=== PATIENT | female | born 1970 | race Caucasian/White ===

== ENCOUNTER → 2016-09-15 | Outpatient (CLI) | payer OTHER ==
[~2016-09-15] MED LIST: AUG875 PO; BACTROOINT TOPICALLY; BUSP15TA; COMBIVENT INHALER; COMBIVENT PO; FLOVENT; FLOVENT110 PO; FLOVENT220 PO; GEODON; HABITROL2 TOPICAL; KEFLEX500 PO; MYCELEXTRO PO; NEURONTIN1 PO; NEXIUM40 PO; NYSTAT100 PO; PRILOSEC40 PO; TYLENOL#3 PO; ZOLO100T; [UNRECOGNIZED DRUG - CODE] PO
--- NOTE | 2016-09-15 10:06 | REP ---
MRI of the right shoulder without contrast: History: Right shoulder pain. Lump at the back of the shoulder. The patient gives a history of remote prior fracture. The patient declined IV contrast. Comparison radiographs are from January 18, 2013. Comparison MRI study is from February 28, 2011. Technique: Axial, oblique coronal, and oblique sagittal imaging planes are utilized. T1 and T2-weighted scans were obtained in the usual fashion with and without fat saturation. MRI findings: There is some hypertrophy, early spur formation, and mild marrow edema on either side of the acromioclavicular joint. There is no evidence of fracture deformity. Glenohumeral and acromioclavicular joints are normally aligned. There is a moderate subacromial subdeltoid bursal effusion. There is increased signal intensity on oblique coronal T1-weighted scans in the distal supraspinatus tendon and a focal T2 hyperintensity is seen at the distal insertion of the supraspinatus tendon consistent with a cuff tear probably partial-thickness. The infraspinatus, subscapularis, and biceps tendons appear intact. No anterior or superior labral disruption is seen. The posterior labrum shows some heterogeneous increased signal intensity on T2-weighted scans compatible with fraying. No abnormality is noted in the visualized scapula. No soft tissue mass or axillary adenopathy is seen. Impression: 1. AC joint osteoarthritis. 2. Subacromial subdeltoid bursal effusion. 3. Fraying in the posterior labrum. 4. Partial thickness distal supraspinatus tendon cuff tear. Signed by Gonzalo Hurley MD 09/15/2016 01:07 P
== END ==
LOC: M RAD 07:41
PROVIDERS: ATTEND Nurse Practitioner Family
DX: M75.81 Other shoulder lesions, right shoulder (principal)

== ENCOUNTER → 2016-09-23 | Outpatient (CLI) | payer OTHER ==
--- NOTE | 2016-09-23 17:13 | PFTRPT ---
Tech: Marilu REBOLLEDO RRT Age: 46 Sex: Female Race: Height: 62.00 Inches Weight: 112.00 Lbs BSA: 1.49 Diagnosis: R06.09 TECH NOTE: Test meets the ATS standards for acceptability and repeatability. The patient was given four puffs of albuterol for postbronchodilator. PULMONARY FUNCTION REPORT ORDERING PROVIDER: MARIBEL Jorgensen DATE OF SERVICE: 09/23/16 SPIROMETRY: Pre and post bronchodilator study of excellent technical quality. The forced vital capacity is normal. The FEV1 is out of proportion. The obstructive index is, therefore, reduced. FLOW VOLUME LOOP: The expiratory limb of the flow volume loop is consistent with airflow obstruction. Only borderline bronchodilator response is identified. LUNG VOLUMES: The total lung capacity is mildly elevated. The residual volume is consistent with air trapping. DIFFUSION CAPACITY: The diffusion capacity is reduced and does not correct for alveolar volume. HEMOGLOBIN: No hemoglobin is available for correction. AIRWAY MECHANICS: Airways resistance and conductance are normal. IMPRESSION: Mild to moderate obstructive ventilatory impairment with air trapping; suspected emphysema. No significant bronchodilator response. Please correlate clinically. MTDD
[2016-09-23 18:17] LABS: BASO % 0.7 % (0.0-1.0); EOS # 0.1 K/mm3 (0.0-0.50); EOS % 1.9 % (0.0-3.0); LARGE UNSTAINED CELL # 0.1 K/mm3 (0.0-0.4); LARGE UNSTAINED CELL % 1.9 % (0.0-4.0); LYMPH # 1.9 K/mm3 (1.5-4.5); LYMPH % 24.8 % (24.0-44.0); MEAN CORPUSCULAR HEMOGLOBIN 32.9 pg (27.0-33.0); MEAN CORPUSCULAR HGB CONC 33.5 g/dl (32.0-36.5); MEAN CORPUSCULAR VOLUME 98.2 fl (80.0-96.0); MONO # 0.5 K/mm3 (0.0-0.8); NEUTROPHILS # 4.8 K/mm3 (1.8-7.7); NEUTROPHILS % 64.7 % (36.0-66.0); PLATELET COUNT, AUTOMATED 341 k/mm3 (150-450); RED CELL DISTRIBUTION WIDTH 13.4 % (11.5-14.5); WHITE BLOOD COUNT 7.5 K/mm3 (4.0-10.0)
[2016-09-23 18:48] LABS: ALBUMIN 4.2 GM/DL (3.2-5.2); ALBUMIN/GLOBULIN RATIO 1.24 (1.00-1.93); ALKALINE PHOSPHATASE 59 U/L (45-117); ALT/SGPT 20 U/L (12-78); ANION GAP 8 MEQ/L (8-16); AST/SGOT 20 U/L (15-37); BILIRUBIN,TOTAL 0.4 MG/DL (0.2-1.0); BLOOD UREA NITROGEN 15 MG/DL (7-18); CALCIUM LEVEL 9.2 MG/DL (8.5-10.1); CARBON DIOXIDE LEVEL 25 MEQ/L (21-32); CHLORIDE LEVEL 104 MEQ/L (98-107); CHOLESTEROL LEVEL 212 MG/DL (<200); CREATININE FOR GFR 1.13 MG/DL (0.55-1.02); FREE T4 0.91 NG/DL (0.76-1.46); GLOMERULAR FILTRATION RATE 55.4 (>58); GLUCOSE, FASTING 91 MG/DL (70-105); POTASSIUM SERUM 4.1 MEQ/L (3.5-5.1); SODIUM LEVEL 137 MEQ/L (136-145); TOTAL PROTEIN 7.6 GM/DL (6.4-8.2); TRIGLYCERIDES LEVEL 98 MG/DL (<150)
--- NOTE | 2016-09-23 22:03 | REP ---
Clinical: Chest pain. History of emphysema. Technique: PA and lateral. Comparison: 03/13/2014. Findings: Mediastinum and cardiac silhouette are normal. Lung siu suggest mild emphysematous changes primarily involving the upper lobes (record left). No focal consolidation, effusion, or pneumothorax. Impression: Mild emphysematous changes. No acute cardiopulmonary process. Signed by Harrison Eldridge MD 09/23/2016 09:54 P
--- NOTE | 2016-09-23 22:10 | REP ---
Clinical: Hip pain. Technique: Neutral and frog lateral views of the right hip. Findings: Mild age-related changes include increased sclerosis to the acetabular roof with associated superior joint space narrowing. No significant osteophytosis, or periarticular calcifications. Surrounding soft tissues are unremarkable. No acute fracture dislocation. Impression: Mild age-related degenerative change. Signed by Harrison Eldridge MD 09/23/2016 10:01 P
--- NOTE | 2016-09-23 22:41 | ECGEPIP ---
Stationary ECG Study [facility] Test Date: 2016-09-23 Pat Name: JACKY MERCHANT Department: Room: - Gender: F Offc Spec: SANDRO : 1970 Requested By: Hortencia Haque [employer] Order Number: [id number] Reading MD: Edward Sun Measurements Intervals [place] Rate: 61 P: 34 SD: 179 QRS: 78 QRSD: 84 T: 58 QT: 423 QTc: 426 Interpretive Statements SINUS RHYTHM WITH 1 PAC. Electronically Signed On 09-23-2016 22:41:17 EDT by Edward Sun
[2016-09-26 00:06] LABS: Lyme Disease IgG/IgM Antibodie <0.91 ISR (0.00-0.90); Lyme Disease IgM Ab Quantitati <0.80 index (0.00-0.79)
--- NOTE | 2016-09-26 02:28 | REP ---
Clinical: Mandibular pain. Technique: Carlos and opened/closed mouth views of the right and left temporomandibular joint. Findings: The mandible appears intact and grossly normal. Open and closed mouth views of the left and right temporomandibular joints demonstrates normal positioning of the condyle in relation to the articular eminence and fossa respectively. Impression: Normal appearance to the mandible with normal positioning and appearance to the temporomandibular joints bilaterally on open and closed mouth views. Signed by Harrison Eldridge MD 09/26/2016 02:19 A
== END ==
LOC: M LAB 16:03
PROVIDERS: ATTEND Nurse Practitioner Family
DX: Z13.220 Encounter for screening for lipoid disorders (principal); I25.10 Atherosclerotic heart disease of native coronary artery without angina pectoris; R68.84 Jaw pain; J43.8 Other emphysema; M25.551 Pain in right hip; A63.8 Other specified predominantly sexually transmitted diseases; K13.79 Other lesions of oral mucosa; R68.89 Other general symptoms and signs

== ENCOUNTER 2017-03-13 12:41 | Emergency (ER) | payer OTHER ==
[~2017-03-13] VITALS: Ht 144.8 cm; Wt 48.2 kg
[2017-03-13] MEDS ORDERED: VITA1CAP40 PO (12:58)
[2017-03-13] MEDS ORDERED: ANOR1AER (12:58)
--- NOTE | 2017-03-13 14:50 | REP ---
Clinical: Trauma. Technique: AP, lateral, bilateral oblique views of the left hand. Findings: Boxer's fracture involving the fifth metacarpal bone with mild volar angulation and overlying soft tissue swelling. Remainder examination appears normal. Impression: Boxer's fracture of the fifth metacarpal bone with overlying soft tissue swelling. Signed by Harrison Eldridge MD 03/13/2017 02:41 P
[2017-03-13] MEDS ORDERED: PERCOCET 5MG/325MG TAB PO ONE (15:15)
[2017-03-13] MEDS ORDERED: PERC5TAB12 PO (16:03)
[2017-03-13 16:14] VITALS: BP 128/81
== END 2017-03-13 16:16 | disposition home or self-care (01) ==
LOC: M ED 12:41
DX: S62.306A Unspecified fracture of fifth metacarpal bone, right hand, initial encounter for closed fracture (principal); W18.2XXA Fall in (into) shower or empty bathtub, initial encounter; Y92.099 Unspecified place in other non-institutional residence as the place of occurrence of the external cause; Y93.9 Activity, unspecified; Y99.9 Unspecified external cause status; J44.9 Chronic obstructive pulmonary disease, unspecified; M54.9 Dorsalgia, unspecified; F41.9 Anxiety disorder, unspecified; F32.9 Major depressive disorder, single episode, unspecified; F17.200 Nicotine dependence, unspecified, uncomplicated; Z79.899 Other long term (current) drug therapy

== ENCOUNTER → 2017-05-26 | Outpatient (CLI) | payer OTHER | LOC: M CARPUL 07:42 | DX: J44.9 Chronic obstructive pulmonary disease, unspecified (principal) | CPT/HCPCS: 88738 ==

== ENCOUNTER → 2017-07-20 | Outpatient (CLI) | payer OTHER ==
[2017-07-20 13:23] LABS: BASO # 0.1 10^3/uL (0.0-0.2); BASO % 1.1 % (0.0-1.0); EOS # 0.2 10^3/uL (0.0-0.50); HEMATOCRIT 42.4 % (36.0-47.0); HEMOGLOBIN 14.6 g/dl (12.0-16.0); IMMATURE GRANULOCYTE % 0.3 % (0-3.0); LYMPH # 2.2 10^3/uL (1.5-4.5); LYMPH % 32.5 % (24.0-44.0); MEAN CORPUSCULAR HEMOGLOBIN 32.5 pg (27.0-33.0); MEAN CORPUSCULAR HGB CONC 34.4 g/dl (32.0-36.5); MEAN CORPUSCULAR VOLUME 94.4 fl (80.0-96.0); MONO # 0.5 10^3/uL (0.0-0.8); MONO % 7.2 % (0.0-5.0); NEUTROPHILS # 3.7 10^3/uL (1.8-7.7); NEUTROPHILS % 55.9 % (36.0-66.0); PLATELET COUNT, AUTOMATED 342 10^3/uL (150-450); RED BLOOD COUNT 4.49 10^6/uL (4.00-5.40); RED CELL DISTRIBUTION WIDTH 12.7 % (11.5-14.5); WHITE BLOOD COUNT 6.7 10^3/uL (4.0-10.0)
[2017-07-20 13:33] LABS: INR 0.91; PROTHROMBIN TIME 12.3 SECONDS (12.4-14.5)
[2017-07-20 13:56] LABS: ALBUMIN/GLOBULIN RATIO 1.18 (1.00-1.93); ALKALINE PHOSPHATASE 55 U/L (45-117); ALT/SGPT 16 U/L (12-78); ANION GAP 5 MEQ/L (8-16); AST/SGOT 13 U/L (7-37); BILIRUBIN,TOTAL 0.4 MG/DL (0.2-1.0); BLOOD UREA NITROGEN 12 MG/DL (7-18); CALCIUM LEVEL 8.8 MG/DL (8.5-10.1); CARBON DIOXIDE LEVEL 29 MEQ/L (21-32); CHLORIDE LEVEL 105 MEQ/L (98-107); GLOMERULAR FILTRATION RATE > 60.0 (>58); GLUCOSE, FASTING 83 MG/DL (70-100); POTASSIUM SERUM 4.9 MEQ/L (3.5-5.1); SODIUM LEVEL 139 MEQ/L (136-145); TOTAL PROTEIN 7.4 GM/DL (6.4-8.2)
== END ==
LOC: M LAB 12:17
DX: Z01.818 Encounter for other preprocedural examination (principal); J44.9 Chronic obstructive pulmonary disease, unspecified; I25.2 Old myocardial infarction; I25.10 Atherosclerotic heart disease of native coronary artery without angina pectoris
CPT/HCPCS: 71046

== ENCOUNTER 2017-07-27 08:40 | Day surgery (SDC) | payer OTHER ==
[2017-07-27] MEDS ORDERED: MIDAZOLAM INJ 2 MG/2 ML VIAL (J2250) As Ordered (09:01)
[2017-07-27] MEDS ORDERED: LIDOCAINE 2% INJ 100 MG/5 ML SDV (FOR ANES.) As Ordered (09:01)
[2017-07-27] MEDS ORDERED: PROPOFOL 200 MG/20 ML VIAL As Ordered (09:01)
[2017-07-27] MEDS ORDERED: fentaNYL 250 MCG/5 ML INJECTION (J3010) As Ordered (09:01)
[2017-07-27] MEDS ORDERED: ROCURONIUM BROMIDE 50 MG/5 ML VIAL As Ordered (09:01)
[2017-07-27] MEDS: LR 1,000 ML IV (09:10)
[2017-07-27 09:14] LABS: CONTROL LINE UCG INT CTR LINE PRESENT; URINE PREG TEST NEGATIVE (NEGATIVE)
[2017-07-27] MEDS: OXYMETAZOLINE NASAL SPRAY (AFRIN) As Ordered (09:55)
[2017-07-27] MEDS: METHYLENE BLUE 0.5% (5MG/ML) 10 ML AMP (PROVAYBLUE)(Q9968 PER 1MG) As Ordered (09:55)
[2017-07-27] MEDS ORDERED: GLYCOPYRROLATE INJ 0.2 MG/ML 2 ML VIAL As Ordered (10:04)
[2017-07-27] MEDS ORDERED: KETOROLAC 60 MG/2 ML VIAL (J1885) As Ordered (10:04)
[2017-07-27] MEDS ORDERED: dexameTHASONE 4 MG/ML 1ML VIAL (J1100) As Ordered ×2 (10:04)
[2017-07-27] MEDS ORDERED: ONDANSETRON 4MG/2ML VIAL (J2405) As Ordered ×2 (10:04→10:57)
[2017-07-27] MEDS ORDERED: NEOSTIGMINE 10 MG/10 ML VIAL (J2710) As Ordered (10:04)
[2017-07-27] MEDS ORDERED: fentaNYL 100 MCG/2 ML INJECTION (J3010) As Ordered (10:50)
[2017-07-27] MEDS: LIDOCAINE W/EPINEPHRINE 1% 20ML VIAL As Ordered (10:50)
[2017-07-27] MEDS: fentaNYL 100 MCG/2 ML INJECTION (J3010) IV (10:58)
[2017-07-27] MEDS: ONDANSETRON 4MG/2ML VIAL (J2405) IV (11:05)
[2017-07-27] MEDS: PERCOCET 5MG/325MG TAB PO (11:41)
[2017-07-27] MEDS ORDERED: MORPHINE 10 MG/ML 1ML VIAL (J2270) IV (11:45)
[2017-07-27] MEDS ORDERED: IBUPROFEN 800 MG TAB PO (11:45)
[2017-07-27] MEDS ORDERED: PERCOCET 5MG/325MG TAB PO (11:45)
[2017-07-27] MEDS ORDERED: LR 1,000 ML IV (11:45)
== END 2017-07-27 13:22 | disposition home or self-care (01) ==
LOC: M SDC 08:40
DX: J34.2 Deviated nasal septum (principal); J44.9 Chronic obstructive pulmonary disease, unspecified; F41.9 Anxiety disorder, unspecified; Z79.899 Other long term (current) drug therapy; F17.210 Nicotine dependence, cigarettes, uncomplicated
CPT/HCPCS: 30520

== ENCOUNTER → 2017-08-20 | Outpatient (CLI) | payer OTHER | LOC: M RAD 14:20 | DX: M16.11 Unilateral primary osteoarthritis, right hip (principal) | CPT/HCPCS: 73502 ==

== ENCOUNTER → 2018-01-14 | Outpatient (CLI) | payer OTHER | LOC: M CARPUL 09:35 | DX: J44.9 Chronic obstructive pulmonary disease, unspecified (principal) | CPT/HCPCS: 94060 ==

== ENCOUNTER 2018-02-23 11:57 | Emergency (ER) | payer OTHER ==
[2018-02-23 13:47] LABS: INFLUENZA A AMPLIFICATION NEGATIVE (NEGATIVE); INFLUENZA B AMPLIFICATION NEGATIVE (NEGATIVE)
[2018-02-23 14:24] LABS: HEMATOCRIT 41.6 % (36.0-47.0); HEMOGLOBIN 14.2 g/dl (12.0-15.5); MEAN CORPUSCULAR HEMOGLOBIN 33.2 pg (27.0-33.0); MEAN CORPUSCULAR HGB CONC 34.1 g/dl (32.0-36.5); MEAN CORPUSCULAR VOLUME 97.2 fl (80.0-96.0); PLATELET COUNT, AUTOMATED 551 10^3/uL (150-450); RED BLOOD COUNT 4.28 10^6/uL (4.00-5.40); RED CELL DISTRIBUTION WIDTH 12.8 % (11.5-14.5)
[2018-02-23] MEDS: ACETAMINOPHEN 325 MG TAB PO (14:26)
[2018-02-23] MEDS: BENZONATATE 100 MG CAP PO (14:26)
[2018-02-23] MEDS: IPRATROPIUM 0.5MG/ALBUTEROL 2.5MG INH SOL UD 3ML (DUONEB)(J7620) NEB (14:30)
[2018-02-23 14:46] LABS: ANION GAP 8 MEQ/L (8-16); BLOOD UREA NITROGEN 7 MG/DL (7-18); CALCIUM LEVEL 9.1 MG/DL (8.5-10.1); CARBON DIOXIDE LEVEL 27 MEQ/L (21-32); CHLORIDE LEVEL 102 MEQ/L (98-107); CPK CREATINE PHOSPHOKINASE 178 U/L (26-192); CREATININE FOR GFR 0.78 MG/DL (0.55-1.30); GLOMERULAR FILTRATION RATE > 60.0 (>58); GLUCOSE, FASTING 94 MG/DL (70-100); MB/CK RELATIVE INDEX 0.96 (< OR =4); POTASSIUM SERUM 4.4 MEQ/L (3.5-5.1); SODIUM LEVEL 137 MEQ/L (136-145); TROPONIN I < 0.02 NG/ML (< 0.10)
[2018-02-23 14:48] LABS: ADD MANUAL DIFFER YES; DIFF SLIDE NUMBER 292; POSITIVE MORPH POS FLAG
[2018-02-23 14:55] LABS: ATYPICAL LYMPH 28 % (0-5); BASOPHILS 2 % (0-4); EOSINOPHILS 4 % (0-5); LYMPHOCYTES 7 % (16-52); METAMYELOCYTES 1 % (0-0); MONOCYTES 10 % (0-8); NEUTROPHILS 48 % (35-75)
[2018-02-23 14:56] LABS: PLATELET ESTIMATE INCREASED (NORMAL)
[2018-02-23] MEDS ORDERED: ISOVUE-370 76% 100ML VIAL (Q9967) As Ordered (15:01)
== END 2018-02-23 16:42 | disposition home or self-care (01) ==
LOC: M ED 11:57
DX: J18.1 Lobar pneumonia, unspecified organism (principal); R06.02 Shortness of breath; M79.602 Pain in left arm; C06.9 Malignant neoplasm of mouth, unspecified; I25.2 Old myocardial infarction; J44.9 Chronic obstructive pulmonary disease, unspecified; F17.210 Nicotine dependence, cigarettes, uncomplicated
CPT/HCPCS: Q9967

== ENCOUNTER → 2018-04-01 | Outpatient (CLI) | payer OTHER | LOC: M RAD 10:16 | DX: R91.8 Other nonspecific abnormal finding of lung field (principal) | CPT/HCPCS: 71046 ==

== ENCOUNTER → 2018-05-24 | Outpatient (CLI) | payer OTHER ==
[~2018-05-24] MED LIST changes: +ANOR1AER; +BACL10TA2 PO; +LEVO750T13 PO; +PERC5TAB12 PO; +PRED20TA PO; +TESS100C PO; +VENTAER IN; +VITA50005 PO
--- NOTE | 2018-05-24 13:19 | REP ---
Clinical: Follow up abnormal findings. Technique: Axial noncontrast images from the thoracic inlet to the upper abdomen with coronal and sagittal re-formations. Comparison: 02/23/2018. Findings: Previously identified area of opacity along the medial left upper lobe has completely resolved and likely represented area of atelectasis/infiltrate. No further acute consolidation, significant nodule or mass lesion appreciated. Moderate bronchiectasis and emphysematous changes with upper lobe predominance again identified and stable. No pleural effusion. No pneumothorax. No obvious adenopathy. Mediastinum demonstrates minimal atherosclerotic changes to the thoracic aorta and coronary arteries without aortic aneurysm or cardiomegaly. No pericardial effusion. Musculoskeletal structures are intact. Impression: 1. Previously identified opacity in the medial left upper lobe has completely resolved and no new significant mediastinal or pleuroparenchymal process is appreciated. 2. Moderate bronchiectasis and emphysematous disease remains stable. Electronically Signed by Harrison Eldridge MD 05/24/2018 01:12 P
== END ==
LOC: M RAD 12:39
PROVIDERS: ATTEND Internal Medicine Pulmonary Disease
DX: J47.9 Bronchiectasis, uncomplicated (principal)

== ENCOUNTER → 2018-06-17 | Outpatient (REF) | payer OTHER ==
[2018-06-17 19:42] LABS: ALBUMIN 3.8 GM/DL (3.2-5.2); ALT/SGPT 16 U/L (12-78); BILIRUBIN,TOTAL 0.3 MG/DL (0.2-1.0); BLOOD UREA NITROGEN 11 MG/DL (7-18); CALCIUM LEVEL 8.5 MG/DL (8.5-10.1); CARBON DIOXIDE LEVEL 27 MEQ/L (21-32); CHLORIDE LEVEL 108 MEQ/L (98-107); CHOLESTEROL LEVEL 208 MG/DL (<200); CHOLESTEROL RISK RATIO 3.851 (<5); CREATININE FOR GFR 0.84 MG/DL (0.55-1.30); GLOMERULAR FILTRATION RATE > 60.0 (>58); GLUCOSE, FASTING 95 MG/DL (70-100); HDL CHOLESTEROL 54 MG/DL (>40); LDL CHOLESTEROL 122 MG/DL (<100); NON-HDL-C 154 MG/DL; POTASSIUM SERUM 4.3 MEQ/L (3.5-5.1); SODIUM LEVEL 140 MEQ/L (136-145); THYROID STIMULATING HORMONE 0.718 uIU/ML (0.358-3.740); TRIGLYCERIDES LEVEL 158 MG/DL (<150)
[2018-06-17 19:43] LABS: FOLATE 9.3 NG/ML; TOTAL 25(OH) VITAMIN D 13.7 NG/ML (30.0-100.0); VITAMIN B12 LEVEL 876 PG/ML
[2018-06-17 19:47] LABS: HEMOGLOBIN A1c 5.4 %
[2018-06-17 19:48] LABS: BASO # 0.1 10^3/uL (0.0-0.2); BASO % 0.7 % (0.0-1.0); EOS # 0.3 10^3/uL (0.0-0.50); EOS % 2.3 % (0.0-3.0); HEMATOCRIT 41.1 % (36.0-47.0); LYMPH # 2.7 10^3/uL (1.5-4.5); LYMPH % 24.2 % (24.0-44.0); MEAN CORPUSCULAR HEMOGLOBIN 32.6 pg (27.0-33.0); MEAN CORPUSCULAR HGB CONC 34.1 g/dl (32.0-36.5); MEAN CORPUSCULAR VOLUME 95.6 fl (80.0-96.0); MONO # 0.6 10^3/uL (0.0-0.8); MONO % 5.6 % (0.0-5.0); NEUTROPHILS # 7.5 10^3/uL (1.8-7.7); NEUTROPHILS % 66.8 % (36.0-66.0); PLATELET COUNT, AUTOMATED 317 10^3/uL (150-450); WHITE BLOOD COUNT 11.2 10^3/uL (4.0-10.0)
== END ==
LOC: M LAB REF 18:43
PROVIDERS: ATTEND Nurse Practitioner Family
DX: Z13.9 Encounter for screening, unspecified (principal)

== ENCOUNTER → 2019-01-18 | Outpatient (REF) | payer OTHER ==
[2019-01-21 00:08] LABS: HPV HYBRID CAPTURE II Positive (Negative)
== END ==
LOC: M LAB REF 20:19
PROVIDERS: ATTEND Nurse Practitioner Family
DX: Z12.4 Encounter for screening for malignant neoplasm of cervix (principal); R87.810 Cervical high risk human papillomavirus (HPV) DNA test positive

== ENCOUNTER → 2019-02-01 | Outpatient (REF) | payer OTHER | LOC: M LAB REF 16:27 | PROVIDERS: ATTEND Nurse Practitioner Family | DX: R50.9 Fever, unspecified (principal); J02.9 Acute pharyngitis, unspecified ==

== ENCOUNTER → 2019-07-04 | Outpatient (REF) | payer OTHER, MEDICAID | LOC: M SMT 13:08 | PROVIDERS: ATTEND Nurse Practitioner Women's Health | DX: R87.615 Unsatisfactory cytologic smear of cervix (principal) ==

== ENCOUNTER → 2019-07-25 | Outpatient (REF) | payer OTHER, MEDICAID | LOC: M SFHCWAGY 17:13 | PROVIDERS: ATTEND Nurse Practitioner Women's Health | DX: R87.612 Low grade squamous intraepithelial lesion on cytologic smear of cervix (LGSIL) (principal) ==

== ENCOUNTER → 2019-08-09 | Outpatient (REF) | payer OTHER, MEDICAID ==
[~2019-08-09] MED LIST changes: +STIO1AER INH; -VENTAER IN; +VENTAER INH
[2019-08-09 19:50] LABS: BASO # 0.1 10^3/uL (0.0-0.2); BASO % 0.9 % (0.0-1.0); EOS # 0.4 10^3/uL (0.0-0.5); EOS % 4.7 % (0.0-3.0); HEMATOCRIT 43.7 % (36.0-47.0); LYMPH # 3.2 10^3/uL (1.5-5.0); LYMPH % 39.7 % (24.0-44.0); MEAN CORPUSCULAR HEMOGLOBIN 32.1 pg (27.0-33.0); MEAN CORPUSCULAR HGB CONC 34.3 g/dl (32.0-36.5); MEAN CORPUSCULAR VOLUME 93.4 fl (80.0-96.0); MONO # 0.6 10^3/uL (0.0-0.8); MONO % 7.3 % (0.0-5.0); NEUTROPHILS # 3.8 10^3/uL (1.5-8.5); NEUTROPHILS % 47.2 % (36.0-66.0); PLATELET COUNT, AUTOMATED 310 10^3/uL (150-450); RED BLOOD COUNT 4.68 10^6/uL (4.00-5.40)
[2019-08-09 20:13] LABS: ALT/SGPT 25 U/L (12-78); BILIRUBIN,TOTAL 0.3 MG/DL (0.2-1.0); BLOOD UREA NITROGEN 15 MG/DL (7-18); CALCIUM LEVEL 9.3 MG/DL (8.5-10.1); CARBON DIOXIDE LEVEL 28 MEQ/L (21-32); CHLORIDE LEVEL 105 MEQ/L (98-107); CHOLESTEROL LEVEL 228 MG/DL (<200); CREATININE FOR GFR 0.94 MG/DL (0.55-1.30); GLOMERULAR FILTRATION RATE > 60.0 (>58); GLUCOSE, FASTING 87 MG/DL (70-100); HDL CHOLESTEROL 60 MG/DL (>40); LDL CHOLESTEROL 138 MG/DL (<100); NON-HDL-C 168 MG/DL; POTASSIUM SERUM 4.1 MEQ/L (3.5-5.1); SODIUM LEVEL 138 MEQ/L (136-145); TOTAL PROTEIN 7.7 GM/DL (6.4-8.2); TRIGLYCERIDES LEVEL 148 MG/DL (<150)
== END ==
LOC: M LAB REF 19:28
PROVIDERS: ATTEND Nurse Practitioner Family
DX: Z13.9 Encounter for screening, unspecified (principal); R87.612 Low grade squamous intraepithelial lesion on cytologic smear of cervix (LGSIL)

== ENCOUNTER 2019-08-16 08:21 | Day surgery (SDC) | payer MEDICAID, OTHER ==
[~2019-08-16] VITALS: Ht 157.5 cm; Wt 46.7 kg
[2019-08-16 08:45] LABS: HEMATOCRIT 43.4 % (36.0-47.0); HEMOGLOBIN 15.1 g/dl (12.0-15.5); MEAN CORPUSCULAR HEMOGLOBIN 32.1 pg (27.0-33.0); MEAN CORPUSCULAR HGB CONC 34.8 g/dl (32.0-36.5); MEAN CORPUSCULAR VOLUME 92.3 fl (80.0-96.0); PLATELET COUNT, AUTOMATED 340 10^3/uL (150-450); WHITE BLOOD COUNT 7.9 10^3/uL (4.0-10.0)
[2019-08-16] MEDS ORDERED: SILVER NITRATE APPLICATOR As Ordered ONE (10:09)
[2019-08-16] MEDS ORDERED: LIDOCAINE W/EPINEPHRINE 1% 20ML VIAL As Ordered ONE (10:09)
[2019-08-16] MEDS ORDERED: IODINE STRONG SOLN 15 ML BTL As Ordered ONE (10:09)
[2019-08-16] MEDS ORDERED: ONDANSETRON 4MG/2ML VIAL (J2405 PER 1MG) As Ordered ONE (10:43)
[2019-08-16] MEDS ORDERED: dexameTHASONE 4 MG/ML 1ML VIAL (J1100 PER 1MG) As Ordered ONE (10:43)
[2019-08-16] MEDS ORDERED: LIDOCAINE 2% 100MG/5ML SDV (FOR ANES.) As Ordered ONE (10:43)
[2019-08-16] MEDS ORDERED: propofoL 200 MG/20 ML VIAL As Ordered ONE (10:43)
[2019-08-16] MEDS ORDERED: MIDAZOLAM INJ 2MG/2ML VIAL (J2250 PER 1MG) As Ordered ONE (10:43)
[2019-08-16] MEDS ORDERED: fentaNYL 100 MCG/2 ML INJECTION (J3010) As Ordered ONE (10:43)
[2019-08-16] MEDS ORDERED: ePHEDrine SULFATE 25 MG/5 ML(5MG/ML) SYRINGE As Ordered ONE (11:00)
[2019-08-16] MEDS ORDERED: oxyCODONE 5MG TAB As Ordered ONE (11:46)
[2019-08-16] MEDS: oxyCODONE 5MG TAB PO PRN ×2 (11:48→11:55)
[2019-08-16] MEDS ORDERED: fentaNYL 100 MCG/2 ML INJECTION (J3010) IV PRN (12:00)
[2019-08-16] MEDS ORDERED: LR 1,000 ML IV SCH (12:00)
[2019-08-16] MEDS ORDERED: ONDANSETRON 4MG/2ML VIAL (J2405 PER 1MG) IV PRN (12:00)
[2019-08-16 13:00] VITALS: BP 106/49
== END 2019-08-16 13:25 | disposition home or self-care (01) ==
LOC: M SDC 08:21
PROVIDERS: ATTEND Obstetrics & Gynecology
DX: N87.1 Moderate cervical dysplasia (principal); I25.10 Atherosclerotic heart disease of native coronary artery without angina pectoris; I25.2 Old myocardial infarction; F17.218 Nicotine dependence, cigarettes, with other nicotine-induced disorders; F12.10 Cannabis abuse, uncomplicated; Z79.51 Long term (current) use of inhaled steroids; F41.9 Anxiety disorder, unspecified; F32.9 Major depressive disorder, single episode, unspecified
CPT/HCPCS: 36415; 57522; 81025; 85027; 86850; 86900; 86901; 88307; J1100; J2250; J2405; J3010

== ENCOUNTER → 2019-10-20 | Outpatient (CLI) | payer OTHER ==
[~2019-10-20] MED LIST changes: +ATOR1TAB21 PO; +CYCL-707 PO; +GABA-843 PO; +IBUP-1022 PO
--- NOTE | 2019-10-20 12:18 | REP ---
Seven views lumbar spine: 10/20/2019. Indication: Low back pain. Comparison: None. Findings: There is no acute fracture, subluxation or dislocation. There is no evidence of instability during dynamic testing. No lytic or blastic lesions are present. Disc space height within the lumbar spine is relatively maintained. Mild anterior spurring is noted most pronounced at L1/L2. The spinal canal and neural foramina appear patent. Impression: No acute osseous injury or evidence of instability. Electronically Signed by Rigo Henson DO 10/20/2019 12:09 P
== END ==
LOC: M RAD 11:05
PROVIDERS: ATTEND Nurse Practitioner Family
DX: M54.5 Low back pain (principal)

== ENCOUNTER 2020-01-13 10:38 | Emergency (ER) | payer OTHER ==
[~2020-01-13] VITALS: Ht 157.5 cm; Wt 46.6 kg
[~2020-01-13 10:38] MED LIST changes: -ATOR1TAB21 PO; -CYCL-707 PO; -GABA-843 PO; -IBUP-1022 PO
[2020-01-13] MEDS ORDERED: ATOR1TAB21 PO (10:52)
[2020-01-13] MEDS ORDERED: GABA-843 PO (10:52)
[2020-01-13] MEDS ORDERED: CYCL-707 PO (11:31)
[2020-01-13] MEDS ORDERED: IBUP-1022 PO (11:31)
[2020-01-13 11:36] VITALS: BP 136/87
== END 2020-01-13 11:49 | disposition home or self-care (01) ==
LOC: M ED 10:38
DX: M54.5 Low back pain (principal); I10 Essential (primary) hypertension; F17.200 Nicotine dependence, unspecified, uncomplicated; Z79.51 Long term (current) use of inhaled steroids; Z79.899 Other long term (current) drug therapy

== ENCOUNTER → 2020-02-13 | Outpatient (REF) | payer OTHER, MEDICAID ==
[~2020-02-13] MED LIST changes: +ATOR1TAB21 PO; +CYCL-707 PO; +GABA-843 PO; +IBUP-1022 PO
[2020-02-13 13:49] LABS: BASO # 0.1 10^3/uL (0.0-0.2); BASO % 1.3 % (0.0-1.0); EOS # 0.3 10^3/uL (0.0-0.5); HEMATOCRIT 43.1 % (36.0-47.0); HEMOGLOBIN 15.1 g/dl (12.0-15.5); LYMPH # 2.6 10^3/uL (1.5-5.0); LYMPH % 31.3 % (24.0-44.0); MEAN CORPUSCULAR HEMOGLOBIN 32.5 pg (27.0-33.0); MEAN CORPUSCULAR VOLUME 92.7 fl (80.0-96.0); MONO # 0.7 10^3/uL (0.0-0.8); MONO % 8.3 % (0.0-5.0); NEUTROPHILS # 4.5 10^3/uL (1.5-8.5); NEUTROPHILS % 54.6 % (36.0-66.0); PLATELET COUNT, AUTOMATED 333 10^3/uL (150-450); RED BLOOD COUNT 4.65 10^6/uL (4.00-5.40); WHITE BLOOD COUNT 8.2 10^3/uL (4.0-10.0)
[2020-02-13 14:19] LABS: ALBUMIN 3.8 GM/DL (3.2-5.2); ALT/SGPT 15 U/L (12-78); BILIRUBIN,TOTAL 0.4 MG/DL (0.2-1.0); BLOOD UREA NITROGEN 11 MG/DL (7-18); CALCIUM LEVEL 9.3 MG/DL (8.5-10.1); CARBON DIOXIDE LEVEL 28 MEQ/L (21-32); CHLORIDE LEVEL 105 MEQ/L (98-107); CHOLESTEROL LEVEL 212 MG/DL (<200); CHOLESTEROL RISK RATIO 3.785 (<5); CREATININE FOR GFR 0.93 MG/DL (0.55-1.30); GLOMERULAR FILTRATION RATE > 60.0 (>58); GLUCOSE, FASTING 84 MG/DL (70-100); HDL CHOLESTEROL 56 MG/DL (>40); LDL CHOLESTEROL 128 MG/DL (<100); NON-HDL-C 156 MG/DL; POTASSIUM SERUM 4.2 MEQ/L (3.5-5.1); SODIUM LEVEL 138 MEQ/L (136-145); TOTAL PROTEIN 7.1 GM/DL (6.4-8.2); TRIGLYCERIDES LEVEL 142 MG/DL (<150)
[2020-02-13 14:26] LABS: TOTAL 25(OH) VITAMIN D 30.5 NG/ML (30.0-100.0)
== END ==
LOC: M LAB REF 12:46
PROVIDERS: ATTEND Nurse Practitioner Family
DX: E78.5 Hyperlipidemia, unspecified (principal); Z13.9 Encounter for screening, unspecified; E55.9 Vitamin D deficiency, unspecified; Z72.0 Tobacco use

== ENCOUNTER → 2020-06-22 | Outpatient (CLI) | payer OTHER ==
[~2020-06-22] MED LIST changes: +GABA-282 PO; -GABA-843 PO
--- NOTE | 2020-06-22 14:47 | REP ---
INDICATION: COPD. Hyperinflation. Otherwise negative chest x-ray. COMPARISON: Comparison chest x-ray April 01, 2018. TECHNIQUE: Two views.. FINDINGS: The lungs are somewhat hyperinflated but clear. Pleural angles are sharp. Heart size is normal. Pulmonary vasculature is not increased. No significant bony abnormality is seen. IMPRESSION: Negative chest x-ray. <Electronically signed by Srinivasa Hurley > 06/22/20 [id number]
== END ==
LOC: M WUC 12:07
PROVIDERS: ATTEND Internal Medicine Pulmonary Disease
DX: J44.9 Chronic obstructive pulmonary disease, unspecified (principal)

== ENCOUNTER → 2020-08-08 | Outpatient (REF) | payer OTHER ==
[2020-08-08 18:18] LABS: BASO # 0.1 10^3/uL (0.0-0.2); BASO % 1.1 % (0.0-1.0); EOS # 0.3 10^3/uL (0.0-0.5); HEMATOCRIT 42.2 % (36.0-47.0); HEMOGLOBIN 14.7 g/dl (12.0-15.5); LYMPH # 3.3 10^3/uL (1.5-5.0); MEAN CORPUSCULAR HGB CONC 34.8 g/dl (32.0-36.5); MEAN CORPUSCULAR VOLUME 91.7 fl (80.0-96.0); MONO # 0.5 10^3/uL (0.0-0.8); MONO % 6.8 % (2.0-8.0); NEUTROPHILS % 41.8 % (36.0-66.0); PLATELET COUNT, AUTOMATED 316 10^3/uL (150-450); WHITE BLOOD COUNT 7.1 10^3/uL (4.0-10.0)
[2020-08-08 20:52] LABS: ALBUMIN 3.9 GM/DL (3.2-5.2); ALT/SGPT 17 U/L (12-78); BILIRUBIN,TOTAL 0.3 MG/DL (0.2-1.0); BLOOD UREA NITROGEN 12 MG/DL (7-18); CALCIUM LEVEL 9.7 MG/DL (8.5-10.1); CARBON DIOXIDE LEVEL 27 MEQ/L (21-32); CHLORIDE LEVEL 105 MEQ/L (98-107); CHOLESTEROL LEVEL 233 MG/DL (<200); CHOLESTEROL RISK RATIO 3.883 (<5); GLOMERULAR FILTRATION RATE > 60.0 (>58); GLUCOSE, FASTING 96 MG/DL (70-100); HDL CHOLESTEROL 60 MG/DL (>40); LDL CHOLESTEROL 148 MG/DL (<100); NON-HDL-C 173 MG/DL; POTASSIUM SERUM 4.5 MEQ/L (3.5-5.1); SODIUM LEVEL 137 MEQ/L (136-145); TOTAL PROTEIN 7.3 GM/DL (6.4-8.2); TRIGLYCERIDES LEVEL 126 MG/DL (<150)
== END ==
LOC: M LAB REF 16:31
PROVIDERS: ATTEND Nurse Practitioner Family
DX: E78.5 Hyperlipidemia, unspecified (principal)

== ENCOUNTER → 2020-10-26 | Outpatient (CLI) | payer OTHER ==
--- NOTE | 2020-10-31 08:28 | REP ---
INDICATION: RADICULOPATHY C AND L REGION. COMPARISON: Comparison radiographs are from October 20, 2019.. TECHNIQUE: Sagittal and axial T1 and T2-weighted scans are acquired in the usual fashion with and without fat saturation. Sequences include spin echo, turbo spin-echo, and STIR imaging sequences. FINDINGS: Lumbar vertebral body heights are preserved. There is slight straightening. Alignment is otherwise normal. There is no evidence of spondylolysis or spondylolisthesis. The tip of the conus medullaris is normal in position and appearance at L1-L2. No extra spinal abnormality is observed. There is degenerative narrowing and some decreased signal intensity in the T11-T12 disc which shows central disc bulging mild in degree. No cord compression is seen. There are mild degenerative disc changes in T12-L1 disc but no disc protrusion or bulge is seen. At L1-L2, axial and sagittal images demonstrate discogenic spurring anteriorly. No disc protrusion is seen. No spinal stenosis or foraminal narrowing is observed. At L2-3, there is mild discogenic spurring anteriorly but no other finding. At the L3-4 disc, there is slight narrowing and decreased signal intensity on T2 weighted scans. There is mild bilateral foraminal segment disc bulging but no aramis nerve root compression is seen. No spinal stenosis is noted. There is minimal facet hypertrophy. At L4-5, there is diffuse disc bulging effacing the ventral subarachnoid space. There is mild ligamentum flavum hypertrophy and mild facet hypertrophy present bilaterally. No spinal stenosis is seen. No nerve root compression is appreciated. At the L5-S1 disc level, there is mild osteoarthritic facet hypertrophy present bilaterally. Minimal disc bulging is present with subtle indentation of the ventral margin of the thecal sac but no spinal stenosis. No neural foraminal narrowing is seen. IMPRESSION: Degenerative spondylosis changes as noted above with multilevel disc bulging and facet hypertrophy. <Electronically signed by Srinivasa Hurley > 10/31/20 [id number]
--- NOTE | 2020-10-31 08:33 | REP ---
INDICATION: RADICULOPATHY C AND L REGION. COMPARISON: None. TECHNIQUE: Sagittal and axial T1 and T2-weighted scans are acquired in the usual fashion with and without fat saturation. Sequences include spin echo, turbo spin-echo, and STIR imaging sequences. FINDINGS: Cortical and medullary bone signal intensity are normal. Vertebral body heights are preserved. Alignment is normal. The cervical cord is normal in course, caliber, and signal intensity on T1 and T2 weighted scans. No cord compressive lesion is seen. Craniocervical junction is unremarkable. No extra vertebral abnormality is observed. Axial and sagittal images at the C2-3 and the C3-4 disc level are unremarkable. At C4-5, there is a right paracentral focal disc protrusion which effaces the ventral subarachnoid space and contacts the ventral margin of the cord. The cord does not appear displaced or compressed however. There is no foraminal narrowing. At the C5-6 disc level there is minimal diffuse disc bulging. No disc protrusion is seen. At C6-C7, there is no abnormality. The C7-T1 level is unremarkable as well. IMPRESSION: There is a small right paracentral focal disc protrusion at the C4-5 disc level. <Electronically signed by Srinivasa Hurley > 10/31/20 [id number]
== END ==
LOC: M PLARAD 13:12
PROVIDERS: ATTEND Nurse Practitioner Family
DX: M54.12 Radiculopathy, cervical region (principal); M54.16 Radiculopathy, lumbar region

== ENCOUNTER → 2020-11-15 | Outpatient (REF) | payer OTHER ==
[2020-11-15 17:46] LABS: BASO # 0.1 10^3/uL (0.0-0.2); EOS # 0.4 10^3/uL (0.0-0.5); EOS % 4.4 % (0.0-3.0); HEMATOCRIT 44.1 % (36.0-47.0); HEMOGLOBIN 15.2 g/dl (12.0-15.5); LYMPH % 37.7 % (24.0-44.0); MEAN CORPUSCULAR HEMOGLOBIN 31.9 pg (27.0-33.0); MEAN CORPUSCULAR HGB CONC 34.5 g/dl (32.0-36.5); MEAN CORPUSCULAR VOLUME 92.6 fl (80.0-96.0); MONO # 0.6 10^3/uL (0.0-0.8); MONO % 7.6 % (2.0-8.0); NEUTROPHILS # 3.9 10^3/uL (1.5-8.5); PLATELET COUNT, AUTOMATED 359 10^3/uL (150-450); RED BLOOD COUNT 4.76 10^6/uL (4.00-5.40); WHITE BLOOD COUNT 7.9 10^3/uL (4.0-10.0)
[2020-11-15 18:10] LABS: ALBUMIN 4.1 GM/DL (3.2-5.2); ALT/SGPT 17 U/L (12-78); BILIRUBIN,TOTAL 0.5 MG/DL (0.2-1.0); BLOOD UREA NITROGEN 15 MG/DL (7-18); CALCIUM LEVEL 9.1 MG/DL (8.5-10.1); CARBON DIOXIDE LEVEL 31 MEQ/L (21-32); CHLORIDE LEVEL 106 MEQ/L (98-107); CHOLESTEROL LEVEL 201 MG/DL (<200); CHOLESTEROL RISK RATIO 3.465 (<5); CREATININE FOR GFR 0.84 MG/DL (0.55-1.30); GLOMERULAR FILTRATION RATE > 60.0 (>58); GLUCOSE, FASTING 82 MG/DL (70-100); HDL CHOLESTEROL 58 MG/DL (>40); LDL CHOLESTEROL 123 MG/DL (<100); NON-HDL-C 143 MG/DL; POTASSIUM SERUM 4.7 MEQ/L (3.5-5.1); SODIUM LEVEL 139 MEQ/L (136-145); TOTAL PROTEIN 7.5 GM/DL (6.4-8.2); TRIGLYCERIDES LEVEL 100 MG/DL (<150)
== END ==
LOC: M LAB REF 16:57
PROVIDERS: ATTEND Nurse Practitioner Family
DX: E78.5 Hyperlipidemia, unspecified (principal)

== ENCOUNTER → 2021-03-13 | Outpatient (CLI) | payer OTHER ==
--- NOTE | 2021-03-13 15:15 | REP ---
INDICATION: SMOKER COMPARISON: 05/24/2018 TECHNIQUE: Axial noncontrast images from the thoracic inlet to the upper abdomen using low-dose lung screening technique (LDCT). FINDINGS: Emphysematous/cystic changes primarily noted in the upper lung zones along with mild bronchiectasis again noted and essentially unchanged. No acute consolidation, suspicious nodule or mass lesion identified. No effusion. No pneumothorax. Mediastinum is relatively stable with mild atherosclerotic changes to the thoracic aorta and coronary arteries again noted. IMPRESSION: 1. Lung-RADS category 1. No suspicious nodule or mass lesion. Management recommendations include annual low-dose CT surveillance. 2. Chronic changes suggesting emphysematous disease. However, given the absence of smoking history, differential diagnosis may also include lymphangioleiomyomatosis (SOLIS) <Electronically signed by Harrison Eldridge > 03/13/21 [id number]
== END ==
LOC: M RAD 13:41
PROVIDERS: ATTEND Internal Medicine Pulmonary Disease
DX: Z12.2 Encounter for screening for malignant neoplasm of respiratory organs (principal); F17.210 Nicotine dependence, cigarettes, uncomplicated

== ENCOUNTER → 2021-03-29 | Outpatient (CLI) | payer OTHER | LOC: M LABSMTC 10:13 | PROVIDERS: ATTEND Anesthesiology | DX: Z01.812 Encounter for preprocedural laboratory examination (principal); Z20.822 Contact with and (suspected) exposure to COVID-19 ==

== ENCOUNTER 2021-04-02 06:51 | Day surgery (SDC) | payer OTHER ==
[~2021-04-02] VITALS: Ht 144.8 cm; Wt 47.5 kg
[~2021-04-02 06:51] MED LIST changes: +NS 1,000 ML IV ONE
--- OUTSIDE RECORDS SUMMARY | 2021-04-02 06:54 | CCD ---
Author Organization Unknown Address [address] [place] [address] Phone [phone] Care Team Providers Care Position Description Manager Name Role Phone [facility] 2 [phone] [facility] [phone] [facility] 130 [phone] [facility] 82 [phone] Allergies Code Code System Name Reaction Severity Status Onset NKDA Notes: SEASONAL Medications Name Status Start Date Stop Date albuterol sulfate 2.5 mg/3 mL (0.083 %) solution for nebulization INHALE CONTENTS OF ONE VIAL via nebulizer EVERY 4 HOURS NEEDED Active Not available albuterol sulfate HFA 90 mcg/actuation a erosol inhaler Inhale 2 puffs every 4-6 hours by inhalation route as needed. Active Not available amoxicillin 500 mg capsule Completed 02/19 atorvastatin 20 mg tablet TAKE ONE TABLET BY MOUTH ONCE DAILY Completed 04/2020 baclofen 10 mg tablet TAKE ONE TABLET BY MOUTH TWICE DAILY NEEDED Completed 02/25/2021 cefuroxime axetil 500 mg tablet TAKE ONE TABLET BY MOUTH TWICE DAILY Completed cholecalciferol (vitamin D3) 1,250 mcg (50,000 unit) capsule Com pleted 02/25/2021 cyclobenzaprine 10 mg tablet Completed 04/2020 doxycycline monohydrate 100 mg capsule TAKE ONE CAPSULE BY MOUTH TWICE DAILY FOR 10 DAYS Completed 02/25/2021 gabapentin 100 mg capsule Completed 2020 gabapentin 300 mg capsule Completed 2020 ibuprofen 600 mg tablet Completed 02/26/20 nicotine 14 mg/24 hr daily transdermal p atch Apply 1 patch every day by transdermal route. Active Not available ondansetron 4 mg disintegrating tablet DISSOLVE ONE TABLET BY MOUTH EVERY 8 HOURS NEEDED FOR NAUSEA Completed 02/25/2021 prednisone 10 mg tablet TAKE 4 TABLETS BY MOUTH ONCE DAILY FOR FOUR DAYS THEN TAKE THREE TABLETS BY MOUTH ONCE DAILY FOR FOUR DAYS THEN TAKE TWO TABLETS BY MOUTH ON Completed 08/13/2020 prednisone 20 mg tablet TAKE ONE TABLET BY MOUTH THREE TIMES DAILY FOR 3 DAYS, THEN TAKE ONE TABLET TWICE DAILY FOR 3 DAYS, THEN TAKE ONE TABLET ONCE DAILY FOR 3 DAYS, THEN STOP Active Not available Stiolto Respimat 2.5 mcg-2.5 mcg/actuation solution for inhalati on Active Not available tizanidine 4 mg tablet TAKE ONE TABLET BY MOUTH THREE TIMES DAILY NEEDED Completed 02/25/2021 Problems Name Status Onset Date Source Generalized Anxiety Disorder Active 09/09/2016 His tory Pulmonary Emphysema Active 09/09/2016 History Disorder of Skin And/or Subcutaneous Tissue Unknown 08/25 History Tobacco Use and Exposure - Finding Unknown 09/09/2016 History Exposure to Second Hand Tobacco Smoke Active 09/09/2016 History Pain in Right Hip Joint Active 09/09/2016 History Vitamin D Deficiency Active 10/01/2016 History Disorder of Musculoskeletal System Unknown 10/01/2016 History 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 History Finding of Body Mass Index Unknown 02/17/2017 Histo ry Fracture of Metacarpal Bone Unknown 03/16/2017 Hist ory Chronic Rhinitis Active 05/20/2017 History Chronic Obstructive Lung Disease Active 05/20/2017 History Procedure Unknown 07/15/2017 History Injury of Head Unknown 07/22/2017 History Underweight Active 08/18/2017 History Cough Unknown 03/04/2018 History Anesthesia of Skin Active 06/17/2018 History Clinical Finding Unknown 06/17/2018 History Disorder of Upper Respiratory System Unknown 07/29/2018 History Arthropathy Active 11/16/2018 History Abnormal Weight Loss Unknown 11/16/2018 History Snoring Active 11/16/2018 History Premature Menopause Unknown 01/13/2019 History Screening for Malignant Neoplasm of Cervix Unknown 01/18 History Pharyngeal Finding Unknown 02/01/2019 History Evaluation Finding Unknown 05/04/2019 History Pain of Right Shoulder Joint Active 05/04/2019 His tory 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 08/09/2019 History Cannabis Abuse Active 09/05/2019 History Backache Unknown 09/05/2019 History Hyperlipidemia Active 10/17/2019 History Patient Asked to Attend Unknown 10/17/2019 History Nicotine Dependence with Current Use Active 11/26/2020 History of Malignant Neoplasm of Cervix Active 02/26/20 21 Procedures Date Name Performed by 02/25/2021 MAMMO, Screening, Digital, Bilateral Inf ormation not available Notes: tubal ligation, septum surgery Results Lab Results Date Name Specimen Result Interpretation Description Value Range Status Address 12/17/2020 SARS CoV 2 RdRp Gene, QL Probe, Respiratory Spec imen Nasopharyngeal Normal Sars-cov-2 negative negative Final [facility]: [address] [facility] 12/10/2020 SARS CoV 2 RdRp Gene, QL Probe, Respiratory Spec imen Nasopharyngeal Normal Sars-cov-2 negative negative Final [facility]: [address] [facility] 11/30/2020 SARS CoV 2 RdRp Gene, QL Probe, Respiratory Spec imen Nasopharyngeal Normal Sars-cov-2 negative negative Final [facility]: [address] [facility] 11/15/2020 CBC W/ Auto Diff Blood venous Normal White Blood C ount 7.9 10 4.0-10.[address] [facility]: [address] 0 [facility] Blood venous Normal Red Blood Count 4.76 10 4.00- 5.[address] [facility]: [address] [facility] Blood venous Normal Hemoglobin 15.2 g/dL 12.0-15. 5 g/dL [facility]: [address] [facility] Blood venous Normal Hematocrit 44.1 % 36.0-47.0 % [facility]: [address] [facility] Blood venous Normal Mean Corpuscular Volume 92.6 fL 80.0-96.[address] [facility]: [address] [facility] Blood venous Normal Mean Corpuscular Hemoglob in 31.9 pg 27.0-33.[address] [facility]: [address] [facility] Blood venous Normal Mean Corpuscular HGB Conc 34.5 g/dL 32.0-36.5 g/dL [facility]: [address] [facility] Blood venous Normal Red Cell Distribution Wid th 13.2 % 11.5-14.5 % [facility]: [address] [facility] Blood venous Normal Platelet Count, Automated 359 10 150-[address] [facility]: [address] [place] [address] Blood venous Normal Neutrophils % 49.0 % 36.0-66. 0 % [facility]: [address] [place] [address] Blood venous Normal Lymph % 37.7 % 24.0-44.0 % Fi [facility]: [address] [place] [address] Blood venous Normal [place] % 7.6 % 2.0-8.0 % [facility]: [address] [place] [address] Blood venous High Eos % 4.4 % 0.0-3.0 % [facility]: [address] [place] [address] Blood venous Normal Baso % 1.0 % 0.0-1.0 % [facility]: [address] [place] [address] Blood venous Normal Immature Granulocyte % 0.3 % 0-3.0 % [facility]: [address] [place] [address] Blood venous Normal Nucleated Red Blood Cell % 0. 0 % 0-0 % [facility]: [address] [place] [address] Blood venous Normal Neutrophils # 3.9 10 1.5-8.[address] [facility]: [address] [place] [address] Blood venous Normal Lymph # 3.0 10 1.5-5.0 10 [facility]: [address] [place] [address] Blood venous Normal [place] # 0.6 10 0.0-0.8 10 [facility]: [address] [place] [address] Blood venous Normal Eos # 0.4 10 0.0-0.[address] [facility]: [address] [place] [address] Blood venous Normal Baso # 0.1 10 0.0-0.2 10 [facility]: [address] [place] [address] 11/15/2020 CMP, Serum or Plasma Blood venous Normal Glu cose, Fasting 82 mg/dL 70-100 mg/dL [facility] nter: [address] [place] [address] Blood venous Normal Blood Urea Nitrogen 15 mg/dL 7-18 mg/dL [facility]: [address] [place] [address] Blood venous Normal Creatinine for GFR 0.84 mg/dL 0.55-1.30 mg/dL [facility]: [address] [facility] Blood venous Normal Glomerular Filtration Rate > 60.[address] >58 [facility]: [address] [facility] Blood venous Normal Sodium Level 139 mEq/L 136-14 5 mEq/L [facility]: [address] [facility] Blood venous Normal Potassium Serum 4.7 mEq/L 3.5 -5.1 mEq/L [facility]: [address] [facility] Blood venous Normal Chloride Level 106 mEq/L 98-1 07 mEq/L [facility]: [address] [facility] Blood venous Normal Carbon Dioxide Level 31 mEq/L 21-32 mEq/L [facility]: [address] [facility] Blood venous Low Anion Gap 2 mEq/L 8-16 mEq/L [facility]: [address] [facility] Blood venous Normal Calcium Level 9.1 mg/dL 8.5-1 0.1 mg/dL [facility]: [address] [facility] Blood venous Normal AST/SGOT 13 U/L 7-37 U/L [facility]: [address] [facility] Blood venous Normal ALT/SGPT 17 U/L 12-78 U/L [facility]: [address] [facility] Blood venous Normal Alkaline Phosphatase 80 U/L 4 5-117 U/L [facility]: [address] [facility] Blood venous Normal Bilirubin,total 0.5 mg/dL 0.2 -1.0 mg/dL [facility]: [address] [facility] Blood venous Normal Total Protein 7.5 gm/dL 6.4-8 .2 gm/dL [facility]: 0 [facility] Blood venous Normal Albumin 4.1 gm/dL 3.2-5.2 gm/ dL [facility]: 0 [facility] Blood venous Normal Albumin/globulin Ratio 1.2 1.2-2.2 [facility]: [address] [place] [address] 11/15/2020 Lipid Panel, Blood Blood venous Normal Trigl ycerides Level 100 mg/dL <150 mg/dL [facility] nter: [address] [facility] Blood venous High Cholesterol Level 201 mg/dL < 200 mg/dL [facility]: [address] [facility] Blood venous Normal HDL Cholesterol 58 mg/dL >40 mg/dL [facility]: [address] [facility] Blood venous High LDL Cholesterol 123 mg/dL <10 0 mg/dL [facility]: [address] [facility] Blood venous Normal Non-hdl-c 143 mg/dL Fi [facility]: [address] [facility] Blood venous Normal Cholesterol Risk Ratio 3.[address] <5 [facility]: [address] [facility] 08/08/2020 CBC W/ Auto Diff Blood venous Normal White Blood C ount 7.1 10 4.0-10.[address] [facility]: 83 0 [facility] Blood venous Normal Red Blood Count 4.60 10 4.00- 5.[address] [facility]: [address] [facility] Blood venous Normal Hemoglobin 14.7 g/dL 12.0-15. 5 g/dL [facility]: 0 [facility] Blood venous Normal Hematocrit 42.2 % 36.0-47.0 % [facility]: [address] [facility] Blood venous Normal Mean Corpuscular Volume 91.7 fL 80.0-96.[address] [facility]: [address] [facility] Blood venous Normal Mean Corpuscular Hemoglob in 32.0 pg 27.0-33.[address] [facility]: 0 [facility] Blood venous Normal Mean Corpuscular HGB Conc 34.8 g/dL 32.0-36.5 g/dL [facility]: [address] [facility] Blood venous Normal Red Cell Distribution Wid th 12.9 % 11.5-14.5 % [facility]: [address] [place] [address] Blood venous Normal Platelet Count, Automated 316 10 150-[address] [facility]: [address] [place] [address] Blood venous Normal Neutrophils % 41.8 % 36.0-66. 0 % [facility]: [address] [place] [address] Blood venous High Lymph % 46.0 % 24.0-44.0 % [facility]: [address] [place] [address] Blood venous Normal [place] % 6.8 % 2.0-8.0 % [facility]: [address] [place] [address] Blood venous High Eos % 4.0 % 0.0-3.0 % [facility]: [address] [place] [address] Blood venous High Baso % 1.1 % 0.0-1.0 % [facility]: [address] [place] [address] Blood venous Normal Immature Granulocyte % 0.3 % 0-3.0 % [facility]: [address] [place] [address] Blood venous Normal Nucleated Red Blood Cell % 0. 0 % 0-0 % [facility]: [address] [place] [address] Blood venous Normal Neutrophils # 3.0 10 1.5-8.[address] [facility]: [address] [place] [address] Blood venous Normal Lymph # 3.3 10 1.5-5.0 10 [facility]: [address] [place] [address] Blood venous Normal [place] # 0.5 10 0.0-0.8 10 [facility]: [address] [place] [address] Blood venous Normal Eos # 0.3 10 0.0-0.[address] [facility]: [address] [place] [address] Blood venous Normal Baso # 0.1 10 0.0-0.2 10 [facility]: [address] [place] [address] 08/08/2020 CMP, Serum or Plasma Blood venous Normal Glu cose, Fasting 96 mg/dL 70-100 mg/dL [facility] nter: [address] [place] [address] Blood venous Normal Blood Urea Nitrogen 12 mg/dL 7-18 mg/dL [facility]: [address] [facility] Blood venous Normal Creatinine for GFR 0.90 mg/dL 0.55-1.30 mg/dL [facility]: [address] [facility] Blood venous Normal Glomerular Filtration Rate > 60.[address]58 [facility]: [address] [facility] Blood venous Normal Sodium Level 137 mEq/L 136-14 5 mEq/L [facility]: [address] [facility] Blood venous Normal Potassium Serum 4.5 mEq/L 3.5 -5.1 mEq/L [facility]: [address] [facility] Blood venous Normal Chloride Level 105 mEq/L 98-1 07 mEq/L [facility]: [address] [facility] Blood venous Normal Carbon Dioxide Level 27 mEq/L 21-32 mEq/L [facility]: [address] [facility] Blood venous Low Anion Gap 5 mEq/L 8-16 mEq/L [facility]: [address] [facility] Blood venous Normal Calcium Level 9.7 mg/dL 8.5-1 0.1 mg/dL [facility]: [address] [facility] Blood venous Normal AST/SGOT 11 U/L 7-37 U/L [facility]: [address] [facility] Blood venous Normal ALT/SGPT 17 U/L 12-78 U/L [facility]: [address] [facility] Blood venous Normal Alkaline Phosphatase 95 U/L 4 5-117 U/L [facility]: [address] [facility] Blood venous Normal Bilirubin,total 0.3 mg/dL 0.2 -1.0 mg/dL [facility]: [address] [facility] Blood venous Normal Total Protein 7.3 gm/dL 6.4-8 .2 gm/dL [facility]: 0 [facility] Blood venous Normal Albumin 3.9 gm/dL 3.2-5.2 gm/ dL [facility]: 0 [facility] Blood venous Low Albumin/globulin Ratio 1.1 1.2-2.2 [facility]: [address] [facility] 08/08/2020 Lipid Panel, Blood Blood venous Normal Trigl ycerides Level 126 mg/dL <150 mg/dL [facility] nter: [address] [facility] Blood venous High Cholesterol Level 233 mg/dL < 200 mg/dL [facility]: [address] [facility] Blood venous Normal HDL Cholesterol 60 mg/dL >40 mg/dL [facility]: [address] [facility] Blood venous High LDL Cholesterol 148 mg/dL <10 0 mg/dL [facility]: [address] [facility] Blood venous Normal Non-hdl-c 173 mg/dL Fi [facility]: [address] [facility] Blood venous Normal Cholesterol Risk Ratio 3.[address] <[address] [facility]: [address] [facility] 07/31/2020 SARS CoV 2 RdRp Gene, QL Probe, Respiratory Spec imen Nasopharyngeal Normal Sars-cov-2 negative negative Final [facility]: [address] [place] [address] Past Encounters 02/25/2021 Pulmonary Emphysema; Chronic Obstructive Lung Disease; Nicotine Dependence with Current Use; Administration of Influenza Vaccine; Immunization Advised; Nicotine Dependence; Screening Mammography; Screening for Malignant Neoplasm of Colon Varsha Kraus MD: [address] [place] [phone], Ph. 12/17/2020 Exposure to SARS-CoV-2 Skinny Clemons MD: [address] [place] [phone], Ph. 12/10/2020 Exposure to SARS-CoV-2 Skinny Clemons MD: [address] [place] [phone], Ph. 11/30/2020 Exposure to SARS-CoV-2 Emy Dodd PA-C: [address] [place] [phone], Ph. 11/22/2020 Nicotine Dependence with Current Use; Patient Asked to Attend; Hyperlipidemia [facility]: [address] [place] [phone], Ph. 11/15/2020 Hyperlipidemia Skinny Clemons MD: [address] [place] [phone], Ph. 08/13/2020 Tobacco Dependence Caused by Cigarettes; Low Back Pain; Hyperlipidemia; Patient Asked to Attend [facility]: [address] [place] [phone], Ph. 08/08/2020 [facility]: [address] [place] [phone], Ph. 07/31/2020 Exposure to SARS-CoV-2 Skinny Clemons MD: [address] [place] [phone], Ph. 02/20/2020 Hyperlipidemia; Nicotine Dependence with Current Use; Needs Influenza Immunization; Underweight [facility]: [address] [place] [phone], Ph. Social History Tobacco Smoking Status Heavy Tobacco Smoker (1/2 pack per da y) Vaccine List Vaccine Type influenza, injectable, quadrivalent, pre servative free 02/23/20200.5 mL 10.5 mL pneumococcal polysaccharide PPV23 .5 mL Tdap 08/29/2013 Notes: Pt would like flu vaccine this vi sit Plan of Care Patient Instructions Lab results reviewed and discussed with you today. Please continue medications as prescribed. Please try to maintain good nutrition, adequate rest,adequate physical activities and adequate intake of water daily. Lab results reviewed and discussed with you today. Please continue medications as prescribed. Please try to maintain good nutrition, adequate rest and adequate physical activities and adequate intake of water daily. Reminders Provider Appointments None recorded. Lab None recorded. Referral None recorded. Procedures None recorded. Surgeries None recorded. Imaging None recorded. Vitals 02/25/2021 02:40PM ESTABLISHED [id number] Height Weight BMI Blood Pressure 62 in 100 lbs 4 oz 18.3 kg/m2 116/72 mm[Hg] 11/22/2020 04:00PM TELEHEALTH 20 Height 62 in 11/15/2020 08:10AM NURSE LAB COLLECTION Height 62 in 08/13/2020 05:40PM TELEHEALTH 20 Height 62 in 08/08/2020 10:10AM NURSE LAB COLLECTION Height 62 in 02/20/2020 04:20PM ESTABLISHED [id number] Height Weight BMI Blood Pressure 62 in 104 lbs 19 kg/m2 112/69 mm[Hg] 10/17/2019 Height Weight BMI Blood Pressure 62 in 99 lbs 6.4 oz 18.25 kg/m2 114/77 mm[Hg] 09/05/2019 Height Weight BMI Blood Pressure 62 in 102 lbs 2.08 oz 18.75 kg/m2 117/77 mm[H g] 08/09/2019 Height Weight BMI Blood Pressure 62 in 103 lbs 2.08 oz 18.93 kg/m2 105/78 mm[H g] 05/04/2019 Height Weight BMI Blood Pressure 62 in 105 lbs 19.27 kg/m2 126/82 mm[Hg] 02/01/2019 Height Weight BMI Blood Pressure 62 in 102 lbs 18.72 kg/m2 128/73 mm[Hg] 01/18/2019 Height Weight BMI Blood Pressure 62 in 101 lbs 12.8 oz 18.69 kg/m2 118/77 mm[H g] 01/13/2019 Height Weight BMI Blood Pressure 62 in 102 lbs 18.72 kg/m2 111/72 mm[Hg] 11/16/2018 Height Weight BMI Blood Pressure 62 in 99 lbs 18.17 kg/m2 127/87 mm[Hg] 07/29/2018 Height Weight BMI Blood Pressure 62 in 105 lbs 19.27 kg/m2 111/60 mm[Hg] 06/17/2018 Height Weight BMI Blood Pressure 62 in 107 lbs 19.64 kg/m2 118/85 mm[Hg]
--- OUTSIDE RECORDS SUMMARY | 2021-04-02 06:54 | CCD | Continuity of Care Document ---
Author Author Radha WEISS MD Organization Unknown Address [address] [place] [address] Phone [phone] Care Team Providers Care Assessment Services Manager Name Role Phone Petra Downs AUTM [phone] Kalani Schuster AUTM [phone] Varsha Kraus M.D. AUTM [phone] Problems Active Problems Provider Date Breast signs and symptoms Harriet Valdez D.O. Onset: 2012 Breast lump Harriet Valdez D.O. Onset: 01/20/2013 Deviated nasal septum Fahad Zepeda MD Onset: 07/30/2017 Chronic rhinitis Fahad Zepeda MD Onset: 07/30/2017 Social History Type Date Description Comments Sex Unknown ETOH Use Denies alcohol use Tobacco Use Start: Unknown Smokes 1/2 Pack A Day Recreational Drug Use Sporadically uses Marijuan a CASUALLY Smoking Status Reviewed: 02/27/21 Smokes 1/2 Pack A Day Allergies and adverse reactions Description No Known Drug Allergies Medications Active Medications SIG Qnty Indications Ordering Provide r Date Stiolto Respimat 2.5-2.5mcg/Act Ae rosol inhale two puffs by mouth once daily 4gm Jose conte MD 2018 Ventolin HFA 108(90Base) mcg/Act A erosol 2 puffs qid/prn Unknown Doxycycline Monohydrate 100mg Caps ules Take One Capsule By Mouth Twice Daily For 10 Days Andrae Wolfe RPA Prednisone 20mg Tablets as di rected Andrae Wolfe RPA Ondansetron 4mg Tablets Dispers Dissolve One Tablet By Mouth Every 8 Hours as Needed For Nausea Andrae Wolfe RPA Albuterol Sulfate (2 .5mg/3ML) 0.083% Nebulizer 1 vial four times a day as needed via nebulizer j44.9 Unknown Immunizations Description No Information Available Vital Signs Date Vital Result Comment 02/27/2021 2:25pm BP Systolic 122 mmHg BP Diastolic 82 mmHg Heart Rate 74 /min O2 % BldC Oximetry 94 % Respiratory Rate 18 /min Height 57 inches 4'9" Weight 101.50 lb BMI (Body Mass Index) 22.0 kg/m2 [place] Body Weight 100 lb Weight 46.040 kg BSA (Body Surface Area) 1.35 m2 06/20/2020 3:15pm BP Systolic 108 mmHg BP Diastolic 78 mmHg Heart Rate 101 /min O2 % BldC Oximetry 94 % Height 57 inches 4'9" Weight 101.00 lb BMI (Body Mass Index) 21.9 kg/m2 [place] Body Weight 100 lb Weight 45.814 kg BSA (Body Surface Area) 1.35 m2 Results Test Acquired Date Facility Test Result H/L Range Note [facility]/[place] 02/27/2021 [facility] SEE IMAGE FVC-Pred 2.73 L FVC-Pre 3.02 L FVC-%Pred-Pre 110 L FVC-LLN 2.18 L Fev1-Pred 2.18 L Fev1-Pre 1.65 L Fev1-%Pred-Pre 75 L Fev1-LLN 1.71 L Fev6-Pred 2.66 L Fev6-Pre 2.88 L Fev6-%Pred-Pre 108 L Fev6-LLN 2.12 L Bpy3jqo-Bowm 80 % Hzr5prr-Ujh 55 % Fby6mbz-%Pred-Pre 68 % Ecr4xwk-IWX 70 % Yix9fjd-Spmu 97 % Xue8edp-Ofl 96 % Xqk2oxd-%Pred-Pre 98 % FEFMax-Pred 5.72 L/E/sec FEFMax-Pre 3.98 L/E/sec FEFMax-%Pred-Pre 69 L/E/sec FEFMax-LLN 4.36 L/E/sec Ztx8934-Aiaq 2.38 L/E/sec Yvi2813-Ltt 0.70 L/E/sec Mgs3249-%Pred-Pre 29 L/E/sec Jzb2345-FMI 1.39 L/E/sec ExpTime-Pre 7.49 sec Baa5oan4-Pxmy 82 % Bit9qft8-Ovu 57 % Yri2tjz1-%Pred-Pre 69 % Zpc1pcz6-HQZ 73 % Procedures Description No Information Available Medical Devices Description No Information Available Encounters Description No Information Available Assessments Date Code Description Provider 02/27/2021 J43.1 Panlobular emphysema Jose conte MD 02/27/2021 R91.8 Other nonspecific abnormal findi ng of lung field Jose Weiss MD 02/27/2021 J44.9 Chronic obstructive pulmonary di sease, unspecified Jose Weiss MD 02/27/2021 F17.218 Nicotine dependence, cigarettes, with other nicotine-induced Jose Weiss MD 01/01/2021 J43.1 Panlobular emphysema Willy Daley D.O. 01/01/2021 R91.8 Other nonspecific abnormal findi ng of lung field Willy Daley D.O. Plan of Treatment Future Appointment(s):* 08/29/2021 1:00 pm - Jose Weiss MD at [facility] Pulmonary/Thoracic * 03/05/2021 10:15 am - NICOLAS Kang at [facility] 02/27/2021 - Jose Weiss MD* J43.1 Panlobular emphysema * R91.8 Other nonspecific abnormal finding of lung field * J44.9 Chronic obstructive pulmonary disease, unspecified * F17.218 Nicotine dependence, cigarettes, with other nicotine-induced * * New Labs:* [facility]VL/[place], Scheduled: 08/29/21 * Follow up:* Will call CT 6 months with fvl Functional Status Description No Information Available Mental Status Description No Information Available Referrals Refer to Reason for Referral Status Appt Date Corey Mak MD SCHEDULE COLONOSCOPY Scheduled 12/2020 [address] [facility] [address] [place] [id number] [phone] Jose Weiss M.D. PANLOBULAR EMPHYSEMA J43.1 & ABN FINDING LUNG FIELD R91.8 Scheduled 02/20/2021 [facility] [address] [place], [place] [address] [phone]
--- OUTSIDE RECORDS SUMMARY | 2021-04-02 06:54 | CCD ---
Author Organization Unknown Address [address] [place] [address] Phone [phone] Care Team Providers Care Drum Cleaner Name Role Phone [facility] 2 [phone] Allergies Code Code System Name Reaction Severity Status Onset NKDA Notes: SEASONAL Medications Name Status Start Date Stop Date albuterol sulfate HFA 90 mcg/actuation aerosol inhaler Active Not available amoxicillin 500 mg capsule Completed 02/19 atorvastatin 20 mg tablet TAKE ONE TABLET BY MOUTH ONCE DAILY Active Not available baclofen 10 mg tablet TAKE ONE TABLET BY MOUTH TWICE DAILY NEEDED Active Not available cefuroxime axetil 500 mg tablet TAKE ONE TABLET BY MOUTH TWICE DAILY Completed cholecalciferol (vitamin D3) 1,250 mcg (50,000 unit) capsule Act isa Not available cyclobenzaprine 10 mg tablet Active Not available gabapentin 100 mg capsule Completed 2020 gabapentin 300 mg capsule Completed 2020 ibuprofen 600 mg tablet Active Not avai lable prednisone 10 mg tablet TAKE 4 TABLETS BY MOUTH ONCE DAILY FOR FOUR DAYS THEN TAKE THREE TABLETS BY MOUTH ONCE DAILY FOR FOUR DAYS THEN TAKE TWO TABLETS BY MOUTH ON Completed 08/13/2020 Stiolto Respimat 2.5 mcg-2.5 mcg/actuati on solution for inhalation INHALE TWO PUFFS BY MOUTH ONCE DAILY Active No t available tizanidine 4 mg tablet TAKE ONE TABLET BY MOUTH THREE TIMES DAILY NEEDED Active Not available Problems Name Status Onset Date Source Generalized Anxiety Disorder Active 09/09/2016 His tory Pulmonary Emphysema Active 09/09/2016 History Disorder of Skin And/or Subcutaneous Tissue Active 08/25 History Tobacco Use and Exposure - Finding Active 09/09/2016 History Exposure to Second Hand Tobacco Smoke Active 09/09/2016 History Pain in Right Hip Joint Active 09/09/2016 History Vitamin D Deficiency Active 10/01/2016 History Disorder of Musculoskeletal System Active 10/01/2016 History 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 History Finding of Body Mass Index Active 02/17/2017 Histo ry Fracture of Metacarpal Bone Active 03/16/2017 Hist ory Chronic Rhinitis Active 05/20/2017 History Chronic Obstructive Lung Disease Active 05/20/2017 History Procedure Active 07/15/2017 History Injury of Head Active 07/22/2017 History Underweight Active 08/18/2017 History Cough Active 03/04/2018 History Anesthesia of Skin Active 06/17/2018 History Clinical Finding Active 06/17/2018 History Disorder of Upper Respiratory System Active 07/29/2018 History Arthropathy Active 11/16/2018 History Abnormal Weight Loss Active 11/16/2018 History Snoring Active 11/16/2018 History Premature Menopause Active 01/13/2019 History Screening for Malignant Neoplasm of Cervix Active 01/18 History Pharyngeal Finding Active 02/01/2019 History Evaluation Finding Active 05/04/2019 History Pain of Right Shoulder Joint Active 05/04/2019 His tory 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 08/09/2019 History Cannabis Abuse Active 09/05/2019 History Backache Active 09/05/2019 History Hyperlipidemia Active 10/17/2019 History Patient Asked to Attend Active 10/17/2019 History Nicotine Dependence with Current Use Active 11/26/2020 Procedures Notes: tubal ligation, septum surgery Results Lab Results Date Name Specimen Result Interpretation Description Value Range Status Address 12/17/2020 SARS CoV 2 RdRp Gene, QL Probe, Respiratory Spec imen Nasopharyngeal Normal Sars-cov-2 negative negative Final [facility]: [address] [facility] 12/10/2020 SARS CoV 2 RdRp Gene, QL Probe, Respiratory Spec imen Nasopharyngeal Normal Sars-cov-2 negative negative Final [facility]: [address] [facility] 11/30/2020 SARS CoV 2 RdRp Gene, QL Probe, Respiratory Spec imen Nasopharyngeal Normal Sars-cov-2 negative negative Final [facility]: [address] [facility] 11/15/2020 CBC W/ Auto Diff Blood venous Normal White Blood C ount 7.9 10 4.0-10.0 10 [facility]: [address] [facility] Blood venous Normal Red Blood Count 4.76 10 4.00- 5.40 10 [facility]: [address] [facility] Blood venous Normal Hemoglobin 15.2 g/dL 12.0-15. 5 g/dL [facility]: [address] [place] [address] Blood venous Normal Hematocrit 44.1 % 36.0-47.0 % [facility]: [address] [place] [address] Blood venous Normal Mean Corpuscular Volume 92.6 fL 80.0-96.0 fL [facility]: [address] [place] [address] Blood venous Normal Mean Corpuscular Hemoglob in 31.9 pg 27.0-33.0 pg [facility]: [address] [place] [address] Blood venous Normal Mean Corpuscular HGB Conc 34.5 g/dL 32.0-36.5 g/dL [facility]: [address] [place] [address] Blood venous Normal Red Cell Distribution Wid th 13.2 % 11.5-14.5 % [facility]: [address] [place] [address] Blood venous Normal Platelet Count, Automated 359 10 150-450 10 [facility]: [address] [place] [address] Blood venous Normal Neutrophils % 49.0 % 36.0-66. 0 % [facility]: [address] [place] [address] Blood venous Normal Lymph % 37.7 % 24.0-44.0 % [facility]: [address] [place] [address] Blood venous Normal [place] % 7.6 % 2.0-8.0 % [facility]: [address] [place] [address] Blood venous High Eos % 4.4 % 0.0-3.0 % [facility]: [address] [place] [address] Blood venous Normal Baso % 1.0 % 0.0-1.0 % [facility]: [address] [place] [address] Blood venous Normal Immature Granulocyte % 0.3 % 0-3.0 % [facility]: [address] [place] [address] Blood venous Normal Nucleated Red Blood Cell % 0. 0 % 0-0 % [facility]: [address] [place] [address] Blood venous Normal Neutrophils # 3.9 10 1.5-8.5 10 [facility]: [address] [place] [address] Blood venous Normal Lymph # 3.0 10 1.5-5.0 10 [facility]: [address] [facility] Blood venous Normal [place] # 0.6 10 0.0-0.8 10 [facility]: [address] [place] [address] Blood venous Normal Eos # 0.4 10 0.0-0.5 10 [facility]: [address] [place] [address] Blood venous Normal Baso # 0.1 10 0.0-0.2 10 [facility]: [address] [place] [address] 11/15/2020 CMP, Serum or Plasma Blood venous Normal Glu cose, Fasting 82 mg/dL 70-100 mg/dL [facility] nter: [address] [place] [address] Blood venous Normal Blood Urea Nitrogen 15 mg/dL 7-18 mg/dL [facility]: [address] [place] [address] Blood venous Normal Creatinine for GFR 0.84 mg/dL 0.55-1.30 mg/dL [facility]: [address] [place] [address] Blood venous Normal Glomerular Filtration Rate > 60.0 >58 [facility]: [address] [place] [address] Blood venous Normal Sodium Level 139 mEq/L 136-14 5 mEq/L [facility]: [address] [place] [address] Blood venous Normal Potassium Serum 4.7 mEq/L 3.5 -5.1 mEq/L [facility]: [address] [place] [address] Blood venous Normal Chloride Level 106 mEq/L 98-1 07 mEq/L [facility]: [address] [place] [address] Blood venous Normal Carbon Dioxide Level 31 mEq/L 21-32 mEq/L [facility]: [address] [place] [address] Blood venous Low Anion Gap 2 mEq/L 8-16 mEq/L [facility]: [address] [place] [address] Blood venous Normal Calcium Level 9.1 mg/dL 8.5-1 0.1 mg/dL [facility]: [address] [place] [address] Blood venous Normal AST/SGOT 13 U/L 7-37 U/L [facility]: [address] [facility] Blood venous Normal ALT/SGPT 17 U/L 12-78 U/L [facility]: [address] [facility] Blood venous Normal Alkaline Phosphatase 80 U/L 4 5-117 U/L [facility]: [address] [facility] Blood venous Normal Bilirubin,total 0.5 mg/dL 0.2 -1.0 mg/dL [facility]: [address] [facility] Blood venous Normal Total Protein 7.5 gm/dL 6.4-8 .2 gm/dL [facility]: 0 [facility] Blood venous Normal Albumin 4.1 gm/dL 3.2-5.2 gm/ dL [facility]: [address] [place] [address] Blood venous Normal Albumin/globulin Ratio 1.2 1.2-2.2 [facility]: [address] [place] [address] 11/15/2020 Lipid Panel, Blood Blood venous Normal Trigl ycerides Level 100 mg/dL <150 mg/dL [facility] nter: [address] [facility] Blood venous High Cholesterol Level 201 mg/dL < 200 mg/dL [facility]: [address] [facility] Blood venous Normal HDL Cholesterol 58 mg/dL >40 mg/dL [facility]: [address] [facility] Blood venous High LDL Cholesterol 123 mg/dL <10 0 mg/dL [facility]: [address] [facility] Blood venous Normal Non-hdl-c 143 mg/dL [facility]: [address] [facility] Blood venous Normal Cholesterol Risk Ratio 3.465 <5 [facility]: 0 [facility] 08/08/2020 CBC W/ Auto Diff Blood venous Normal White Blood C ount 7.1 10 4.0-10.0 10 [facility]: 83 0 [facility] Blood venous Normal Red Blood Count 4.60 10 4.00- 5.40 10 [facility]: [address] [place] [address] Blood venous Normal Hemoglobin 14.7 g/dL 12.0-15. 5 g/dL [facility]: [address] [place] [address] Blood venous Normal Hematocrit 42.2 % 36.0-47.0 % [facility]: [address] [place] [address] Blood venous Normal Mean Corpuscular Volume 91.7 fL 80.0-96.0 fL [facility]: [address] [place] [address] Blood venous Normal Mean Corpuscular Hemoglob in 32.0 pg 27.0-33.0 pg [facility]: [address] [place] [address] Blood venous Normal Mean Corpuscular HGB Conc 34.8 g/dL 32.0-36.5 g/dL [facility]: [address] [place] [address] Blood venous Normal Red Cell Distribution Wid th 12.9 % 11.5-14.5 % [facility]: [address] [place] [address] Blood venous Normal Platelet Count, Automated 316 10 150-450 10 [facility]: [address] [place] [address] Blood venous Normal Neutrophils % 41.8 % 36.0-66. 0 % [facility]: [address] [place] [address] Blood venous High Lymph % 46.0 % 24.0-44.0 % [facility]: [address] [place] [address] Blood venous Normal [place] % 6.8 % 2.0-8.0 % [facility]: [address] [place] [address] Blood venous High Eos % 4.0 % 0.0-3.0 % [facility]: [address] [place] [address] Blood venous High Baso % 1.1 % 0.0-1.0 % [facility]: [address] [place] [address] Blood venous Normal Immature Granulocyte % 0.3 % 0-3.0 % [facility]: [address] [place] [address] Blood venous Normal Nucleated Red Blood Cell % 0. 0 % 0-0 % [facility]: [address] [place] [address] Blood venous Normal Neutrophils # 3.0 10 1.5-8.5 10 [facility]: [address] [place] [address] Blood venous Normal Lymph # 3.3 10 1.5-5.0 10 [facility]: [address] [facility] Blood venous Normal [place] # 0.5 10 0.0-0.8 10 [facility]: [address] [place] [address] Blood venous Normal Eos # 0.3 10 0.0-0.5 10 [facility]: [address] [place] [address] Blood venous Normal Baso # 0.1 10 0.0-0.2 10 [facility]: [address] [place] [address] 08/08/2020 CMP, Serum or Plasma Blood venous Normal Glu cose, Fasting 96 mg/dL 70-100 mg/dL [facility] nter: [address] [place] [address] Blood venous Normal Blood Urea Nitrogen 12 mg/dL 7-18 mg/dL [facility]: [address] [place] [address] Blood venous Normal Creatinine for GFR 0.90 mg/dL 0.55-1.30 mg/dL [facility]: [address] [place] [address] Blood venous Normal Glomerular Filtration Rate > 60.0 >58 [facility]: [address] [place] [address] Blood venous Normal Sodium Level 137 mEq/L 136-14 5 mEq/L [facility]: [address] [place] [address] Blood venous Normal Potassium Serum 4.5 mEq/L 3.5 -5.1 mEq/L [facility]: [address] [place] [address] Blood venous Normal Chloride Level 105 mEq/L 98-1 07 mEq/L [facility]: [address] [place] [address] Blood venous Normal Carbon Dioxide Level 27 mEq/L 21-32 mEq/L [facility]: [address] [place] [address] Blood venous Low Anion Gap 5 mEq/L 8-16 mEq/L [facility]: [address] [place] [address] Blood venous Normal Calcium Level 9.7 mg/dL 8.5-1 0.1 mg/dL [facility]: [address] [facility] Blood venous Normal AST/SGOT 11 U/L 7-37 U/L [facility]: [address] [facility] Blood venous Normal ALT/SGPT 17 U/L 12-78 U/L [facility]: [address] [facility] Blood venous Normal Alkaline Phosphatase 95 U/L 4 5-117 U/L [facility]: [address] [facility] Blood venous Normal Bilirubin,total 0.3 mg/dL 0.2 -1.0 mg/dL [facility]: [address] [place] [address] Blood venous Normal Total Protein 7.3 gm/dL 6.4-8 .2 gm/dL [facility]: [address] [place] [address] Blood venous Normal Albumin 3.9 gm/dL 3.2-5.2 gm/ dL [facility]: [address] [place] [address] Blood venous Low Albumin/globulin Ratio 1.1 1.2-2.2 [facility]: [address] [place] [address] 08/08/2020 Lipid Panel, Blood Blood venous Normal Trigl ycerides Level 126 mg/dL <150 mg/dL [facility] nter: [address] [facility] Blood venous High Cholesterol Level 233 mg/dL < 200 mg/dL [facility]: [address] [place] [address] Blood venous Normal HDL Cholesterol 60 mg/dL >40 mg/dL [facility]: [address] [place] [address] Blood venous High LDL Cholesterol 148 mg/dL <10 0 mg/dL [facility]: [address] [place] [address] Blood venous Normal Non-hdl-c 173 mg/dL [facility]: 0 [facility] Blood venous Normal Cholesterol Risk Ratio 3.883 <5 [facility]: [address] [place] [address] 07/31/2020 SARS CoV 2 RdRp Gene, QL Probe, Respiratory Spec imen Nasopharyngeal Normal Sars-cov-2 negative negative Final [facility]: [address] [facility] Past Encounters 12/17/2020 Exposure to SARS-CoV-2 Skinny Clemons MD: [address] [place] [address], Ph. 12/10/2020 Exposure to SARS-CoV-2 Skinny Clemons MD: [address] [place] [address], Ph. 11/30/2020 Exposure to SARS-CoV-2 Emy Dodd PA-C: [address] [place] [address], Ph. 11/22/2020 Nicotine Dependence with Current Use; Patient Asked to Attend; Hyperlipidemia Petra Downs [facility]: [address] [place] [address], Ph. 11/15/2020 Hyperlipidemia Skinny Clemons MD: [address] [place] [address], Ph. 08/13/2020 Tobacco Dependence Caused by Cigarettes; Low Back Pain; Hyperlipidemia; Patient Asked to Attend Petra Downs [facility]: [address] [place] [phone], Ph. 08/08/2020 Petra Downs [facility]: [address] [place] [address], Ph. 07/31/2020 Exposure to SARS-CoV-2 Skinny Clemons MD: [address] [place] [address], Ph. 02/20/2020 Hyperlipidemia; Nicotine Dependence with Current Use; Needs Influenza Immunization; Underweight Petra Downs [facility]: [address] [place] [address], Ph. Social History Tobacco Smoking Status Heavy Tobacco Smoker (1/2 pack per a day) Vaccine List Vaccine Type influenza, injectable, quadrivalent, pre servative free 02/23/20200.5 mL Tdap 08/29/2013 Notes: Pt would like [...] Surgeries None recorded. Imaging None recorded. Vitals 11/22/2020 04:00PM TELEHEALTH 20 Height 62 in 11/15/2020 08:10AM NURSE LAB COLLECTION Height 62 in 08/13/2020 05:40PM TELEHEALTH 20 Height 62 in 08/08/2020 10:10AM NURSE LAB COLLECTION Height 62 in 02/20/2020 04:20PM ESTABLISHED [id number] Height Weight BMI Blood Pressure 62 in [...]
--- OUTSIDE RECORDS SUMMARY | 2021-04-02 06:54 | CCD | Continuity of Care Document ---
Author Author Radha HEARN Organization Unknown Address [address] [place] [address] [place] [address] Phone [phone] Care Team Providers Care Transplant Worker Name Role Phone [facility] AUTM [phone] Problems Description No Information Available Social History Type Date Description Comments Sex Unknown ETOH Use Denies alcohol use Tobacco Use Start: Unknown Patient is a current smoker, smo kes every day 1/2 ppd Smoking Status Reviewed: 02/22/21 Patient is a current smoker, smokes every day 1/2 ppd Allergies and adverse reactions Description No Known Drug Allergies Medications Active Medications SIG Qnty Indications Ordering Provide r Date Doxycycline Monohydrate 100mg Caps ules 1 cap by mouth twice a day for 10 days 20caps J44.1 Jace Gee JR., M.D. 02/22/2021 Prednisone 20mg Tablets take one tablet three times a day for three days, then take one tablet twice a day for three days,then take one tablet daily for three days 18tabs J44.1 Jace Gee JR., M.D. 02/22/2021 Albuterol Sulfate (2 .5mg/3ML) 0.083% Nebulizer use one vial via neb every 4 hours as needed. 75ml J4 4.1 Jace Gee JR., M.D. 02/22/2021 Ondansetron 4mg Tablets Dispers dissolve 1 tablet in mouth every 8 hours as needed for nausea 14tabs Jace Gee JR., M.D. 02/22/2021 Albuterol Sulfate HFA 108(90Base) mcg/Act Aerosol Unknown Stiolto Respimat 2.5-2.5mcg/Act Aerosol Unknown Medications Administered in Office Medication SIG Qnty Indications Ordering Provider Date Decadron(Per 1MG)Dexamethasone Sodium Ph osphate Injection Injection NICOLAS Anand 02/22/2021 Immunizations Description No Information Available Vital Signs Date Vital Result Comment 02/22/2021 5:58pm BP Systolic 113 mmHg BP Diastolic 82 mmHg Heart Rate 123 /min Respiratory Rate 22 /min O2 % BldC Oximetry 92 % Body Temperature 99.6 F Weight 101.00 lb Height 57 inches 4'9" BMI (Body Mass Index) 21.9 kg/m2 Pain Level 7 Results Description No Information Available Procedures Date Code Description Status 02/22/2021 51184 Office/Outpatient New Low MDM 30 -44 Minutes Completed 02/22/2021 56347 Therapeutic, Prophylactic Or Milla gnostic Injection Subq/Im Completed 02/22/2021 08540 Pressurized/Non-Pres surized Inhalation Treatment,Acute Obstructio Completed Medical Devices Description No Information Available Encounters Type Date Location Provider Dx Diagnosis Office Visit 02/22/2021 5:30p Main Office NICOLAS Carver J44 .1 Chronic obstructive pulmonary disease w (acute) exacerbation Z72.0 Tobacco use Z20.828 Contact w and exposure to ot h viral communicable diseases Assessments Date Code Description Provider 02/22/2021 J44.1 Chronic obstructive pulmonary disease with (acute) exacerbation NICOLAS Carver 02/22/2021 Z72.0 Tobacco use NICOLAS Kong 02/22/2021 Z20.828 Contact with and (cardoza spected) exposure to other viral communicable diseases NICOLAS Carver Plan of Treatment No Information Available Functional Status Description No Information Available Mental Status Description No Information Available Referrals Description No Information Available
--- OUTSIDE RECORDS SUMMARY | 2021-04-02 06:54 | CCD | Continuity of Care Document ---
Author Author Radha HEARN Organization Unknown Address [address] [place] [address] [place] [address] Phone [phone] Care Team Providers Care Upper Shaper Name Role Phone [facility] AUTM [phone] Problems Description No Information Available Social History [...] Available Procedures Date Code Description Status 02/22/2021 47578 Office/Outpatient New Low MDM 30 -44 Minutes Completed 02/22/2021 50418 Therapeutic, Prophylactic Or Milla gnostic Injection Subq/Im Completed 02/22/2021 35695 Pressurized/Non-Pres surized Inhalation Treatment,Acute Obstructio Completed Medical [...]
--- OUTSIDE RECORDS SUMMARY | 2021-04-02 06:54 | CCD | Continuity of Care Document ---
Author Author [facility], [facility] Unknown Address [address] [place] [address] [place] [address] Phone [phone] Care Team Providers Care Material Inspector Name Role Phone [facility] AUTM [phone] Problems Description No Information Available Social History [...] Available Procedures Date Code Description Status 02/22/2021 35338 Office/Outpatient New Low MDM 30 -44 Minutes Completed 02/22/2021 24353 Therapeutic, Prophylactic Or Milla gnostic Injection Subq/Im Completed 02/22/2021 25291 Pressurized/Non-Pres surized Inhalation Treatment,Acute Obstructio Completed Medical [...]
--- OUTSIDE RECORDS SUMMARY | 2021-04-02 06:54 | CCD ---
Author Organization Unknown Address [address] [place] [address] Phone [phone] Care Team Providers Care Clinical Appeals Reviewer Name Role Phone [facility] 2 [phone] Allergies Code Code System Name Reaction Severity [...] imen Nasopharyngeal Normal Sars-cov-2 negative negative Final [facility]: [address] [facility] 12/10/2020 SARS CoV 2 RdRp Gene, QL Probe, Respiratory Spec imen Nasopharyngeal Normal Sars-cov-2 negative negative Final [facility]: [address] [facility] 11/30/2020 SARS CoV 2 RdRp Gene, QL Probe, Respiratory Spec imen Nasopharyngeal Normal Sars-cov-2 negative negative Final [facility]: [address] [facility] 11/15/2020 CBC W/ Auto Diff Blood venous Normal White Blood C ount 7.9 10 4.0-10.0 10 [facility]: 83 0 [facility] Blood venous Normal Red Blood Count 4.76 10 4.00- 5.40 10 [facility]: 830 [facility] Blood venous Normal Hemoglobin 15.2 g/dL 12.0-15. 5 g/dL [facility]: [address] [place] [address] Blood venous Normal Hematocrit 44.1 % 36.0-47.0 % [facility]: [address] [place] [address] Blood venous Normal Mean Corpuscular Volume 92.6 fL 80.0-96.0 fL [facility]: [address] [place] [address] Blood venous Normal Mean Corpuscular Hemoglob in 31.9 pg 27.0-33.0 pg [facility]: [address] [place] [address] Blood venous Normal Mean Corpuscular HGB Conc 34.5 g/dL 32.0-36.5 g/dL [facility]: [address] [place] [address] Blood venous Normal Red Cell Distribution Wid th 13.2 % 11.5-14.5 % [facility]: [address] [place] [address] Blood venous Normal Platelet Count, Automated 359 10 150-450 10 [facility]: [address] [place] [address] Blood venous Normal Neutrophils % 49.0 % 36.0-66. 0 % [facility]: [address] [place] [address] Blood venous Normal Lymph % 37.7 % 24.0-44.0 % [facility]: [address] [place] [address] Blood venous Normal Dukes % 7.6 % 2.0-8.0 % [facility]: [address] [place] [address] Blood venous High Eos % 4.4 % 0.0-3.0 % [facility]: [address] [place] [address] Blood venous Normal Baso % 1.0 % 0.0-1.0 % [facility]: [address] [place] [address] Blood venous Normal Immature Granulocyte % 0.3 % 0-3.0 % [facility]: [address] [place] [address] Blood venous Normal Nucleated Red Blood Cell % 0. 0 % 0-0 % [facility]: [address] [place] [address] Blood venous Normal Neutrophils # 3.9 10 1.5-8.5 10 [facility]: [address] [place] [address] Blood venous Normal Lymph # 3.0 10 1.5-5.0 10 [facility]: [address] [facility] Blood venous Normal Dukes # 0.6 10 0.0-0.8 10 [facility]: [address] [place] [address] Blood venous Normal Eos # 0.4 10 0.0-0.5 10 [facility]: [address] [place] [address] Blood venous Normal Baso # 0.1 10 0.0-0.2 10 [facility]: [address] [place] [address] 11/15/2020 CMP, Serum or Plasma Blood venous Normal Glu cose, Fasting 82 mg/dL 70-100 mg/dL [facility]: [address] [place] [address] Blood venous Normal Blood Urea Nitrogen 15 mg/dL 7-18 mg/dL [facility]: [address] [place] [address] Blood venous Normal Creatinine for GFR 0.84 mg/dL 0.55-1.30 mg/dL [facility]: [address] [place] [address] Blood venous Normal Glomerular Filtration Rate > 60.0 >58 [facility]: [address] [place] [address] Blood venous Normal Sodium Level 139 mEq/L 136-14 5 mEq/L [facility]: [address] [place] [address] Blood venous Normal Potassium Serum 4.7 mEq/L 3.5 -5.1 mEq/L [facility]: [address] [place] [address] Blood venous Normal Chloride Level 106 mEq/L 98-1 07 mEq/L [facility]: [address] [place] [address] Blood venous Normal Carbon Dioxide Level 31 mEq/L 21-32 mEq/L [facility]: [address] [place] [address] Blood venous Low Anion Gap 2 mEq/L 8-16 mEq/L [facility]: [address] [place] [address] Blood venous Normal Calcium Level 9.1 mg/dL 8.5-1 0.1 mg/dL [facility]: [address] [place] [address] Blood venous Normal AST/SGOT 13 U/L 7-37 U/L [facility]: [address] [facility] Blood venous Normal ALT/SGPT 17 U/L 12-78 U/L [facility]: [address] [facility] Blood venous Normal Alkaline Phosphatase 80 U/L 4 5-117 U/L [facility]: [address] [facility] Blood venous Normal Bilirubin,total 0.5 mg/dL 0.2 -1.0 mg/dL [facility]: [address] [facility] Blood venous Normal Total Protein 7.5 gm/dL 6.4-8 .2 gm/dL [facility]: 0 [facility] Blood venous Normal Albumin 4.1 gm/dL 3.2-5.2 gm/ dL [facility]: [address] [place] [address] Blood venous Normal Albumin/globulin Ratio 1.2 1.2-2.2 [facility]: [address] [place] [address] 11/15/2020 Lipid Panel, Blood Blood venous Normal Trigl ycerides Level 100 mg/dL <150 mg/dL [facility]: [address] [facility] Blood venous High Cholesterol Level 201 mg/dL < 200 mg/dL [facility]: [address] [facility] Blood venous Normal HDL Cholesterol 58 mg/dL >40 mg/dL [facility]: [address] [facility] Blood venous High LDL Cholesterol 123 mg/dL <10 0 mg/dL [facility]: [address] [facility] Blood venous Normal Non-hdl-c 143 mg/dL [facility]: [address] [facility] Blood venous Normal Cholesterol Risk Ratio 3.465 <5 [facility]: 0 [facility] 08/08/2020 CBC W/ Auto Diff Blood venous Normal White Blood C ount 7.1 10 4.0-10.0 10 [facility]: 83 0 [facility] Blood venous Normal Red Blood Count 4.60 10 4.00- 5.40 10 [facility]: [address] [place] [address] Blood venous Normal Hemoglobin 14.7 g/dL 12.0-15. 5 g/dL [facility]: [address] [place] [address] Blood venous Normal Hematocrit 42.2 % 36.0-47.0 % [facility]: [address] [place] [address] Blood venous Normal Mean Corpuscular Volume 91.7 fL 80.0-96.0 fL [facility]: [address] [place] [address] Blood venous Normal Mean Corpuscular Hemoglob in 32.0 pg 27.0-33.0 pg [facility]: [address] [place] [address] Blood venous Normal Mean Corpuscular HGB Conc 34.8 g/dL 32.0-36.5 g/dL [facility]: [address] [place] [address] Blood venous Normal Red Cell Distribution Wid th 12.9 % 11.5-14.5 % [facility]: [address] [place] [address] Blood venous Normal Platelet Count, Automated 316 10 150-450 10 [facility]: [address] [place] [address] Blood venous Normal Neutrophils % 41.8 % 36.0-66. 0 % [facility]: [address] [place] [address] Blood venous High Lymph % 46.0 % 24.0-44.0 % [facility]: [address] [place] [address] Blood venous Normal Dukes % 6.8 % 2.0-8.0 % [facility]: [address] [place] [address] Blood venous High Eos % 4.0 % 0.0-3.0 % [facility]: [address] [place] [address] Blood venous High Baso % 1.1 % 0.0-1.0 % [facility]: [address] [place] [address] Blood venous Normal Immature Granulocyte % 0.3 % 0-3.0 % [facility]: [address] [place] [address] Blood venous Normal Nucleated Red Blood Cell % 0. 0 % 0-0 % [facility]: [address] [place] [address] Blood venous Normal Neutrophils # 3.0 10 1.5-8.5 10 [facility]: [address] [place] [address] Blood venous Normal Lymph # 3.3 10 1.5-5.0 10 [facility]: [address] [facility] Blood venous Normal Dukes # 0.5 10 0.0-0.8 10 [facility]: [address] [place] [address] Blood venous Normal Eos # 0.3 10 0.0-0.5 10 [facility]: [address] [place] [address] Blood venous Normal Baso # 0.1 10 0.0-0.2 10 [facility]: [address] [place] [address] 08/08/2020 CMP, Serum or Plasma Blood venous Normal Glu cose, Fasting 96 mg/dL 70-100 mg/dL [facility]: [address] [place] [address] Blood venous Normal Blood Urea Nitrogen 12 mg/dL 7-18 mg/dL [facility]: [address] [place] [address] Blood venous Normal Creatinine for GFR 0.90 mg/dL 0.55-1.30 mg/dL [facility]: [address] [place] [address] Blood venous Normal Glomerular Filtration Rate > 60.0 >58 [facility]: [address] [place] [address] Blood venous Normal Sodium Level 137 mEq/L 136-14 5 mEq/L [facility]: [address] [place] [address] Blood venous Normal Potassium Serum 4.5 mEq/L 3.5 -5.1 mEq/L [facility]: [address] [place] [address] Blood venous Normal Chloride Level 105 mEq/L 98-1 07 mEq/L [facility]: [address] [place] [address] Blood venous Normal Carbon Dioxide Level 27 mEq/L 21-32 mEq/L [facility]: [address] [place] [address] Blood venous Low Anion Gap 5 mEq/L 8-16 mEq/L [facility]: [address] [place] [address] Blood venous Normal Calcium Level 9.7 mg/dL 8.5-1 0.1 mg/dL [facility]: [address] [facility] Blood venous Normal AST/SGOT 11 U/L 7-37 U/L [facility]: [address] [facility] Blood venous Normal ALT/SGPT 17 U/L 12-78 U/L [facility]: [address] [facility] Blood venous Normal Alkaline Phosphatase 95 U/L 4 5-117 U/L [facility]: [address] [facility] Blood venous Normal Bilirubin,total 0.3 mg/dL 0.2 -1.0 mg/dL [facility]: [address] [place] [address] Blood venous Normal Total Protein 7.3 gm/dL 6.4-8 .2 gm/dL [facility]: [address] [place] [address] Blood venous Normal Albumin 3.9 gm/dL 3.2-5.2 gm/ dL [facility]: [address] [place] [address] Blood venous Low Albumin/globulin Ratio 1.1 1.2-2.2 [facility]: [address] [place] [address] 08/08/2020 Lipid Panel, Blood Blood venous Normal Trigl ycerides Level 126 mg/dL <150 mg/dL [facility]: [address] [facility] Blood venous High Cholesterol Level 233 mg/dL < 200 mg/dL [facility]: [address] [place] [address] Blood venous Normal HDL Cholesterol 60 mg/dL >40 mg/dL [facility]: [address] [place] [address] Blood venous High LDL Cholesterol 148 mg/dL <10 0 mg/dL [facility]: [address] [place] [address] Blood venous Normal Non-hdl-c 173 mg/dL [facility]: 0 [facility] Blood venous Normal Cholesterol Risk Ratio 3.883 <5 [facility]: [address] [place] [address] 07/31/2020 SARS CoV 2 RdRp Gene, QL Probe, Respiratory Spec imen Nasopharyngeal Normal Sars-cov-2 negative negative Final [facility]: [address] [facility] Past Encounters 12/17/2020 Exposure to SARS-CoV-2 Skinny Clemons MD: [address] [place] [address], Ph. 12/10/2020 Exposure to SARS-CoV-2 Skinny Clemons MD: [address] [place] [address], Ph. 11/30/2020 Exposure to SARS-CoV-2 Emy Dodd PA-C: [address] [place] [address], Ph. 11/22/2020 Nicotine Dependence with Current Use; Patient Asked to Attend; Hyperlipidemia Petra Downs [facility]: [address] [place] [address], Ph. 11/15/2020 Hyperlipidemia Skinny Clemons MD: [address] [place] [address], Ph. 08/13/2020 Tobacco Dependence Caused by Cigarettes; Low Back Pain; Hyperlipidemia; Patient Asked to Attend Petra Downs [facility]: [address] [place] [address], Ph. 08/08/2020 Petra Downs [facility]: [address] [place] [address], Ph. 07/31/2020 Exposure to SARS-CoV-2 Skinny Clemons MD: [address] [place] [address], Ph. 02/20/2020 Hyperlipidemia; Nicotine Dependence with Current Use; Needs Influenza Immunization; Underweight Petra Downs [facility]: [address] [place] [address], Ph. Social History Tobacco Smoking Status Heavy [...] COLLECTION Height 62 in 02/20/2020 04:20PM ESTABLISHED [id number] Height Weight BMI Blood Pressure 62 in [...]
--- OUTSIDE RECORDS SUMMARY | 2021-04-02 06:54 | CCD | Continuity of Care Document ---
Author Author Radha WEISS MD Organization Unknown Address [address] [place] [address] Phone [phone] Care Team Providers Care Edger Hand Name Role Phone Petra Downs AUTM Kalani Schuster AUTM [phone] Varsha Kraus M.D. AUTM [phone] Problems Active Problems Provider Date Breast signs [...] lb BMI (Body Mass Index) 22.0 kg/m2 [place] Body Weight 100 lb Weight 46.040 kg BSA (Body Surface Area) 1.35 m2 06/20/2020 3:15pm BP Systolic 108 mmHg BP Diastolic 78 mmHg Heart Rate 101 /min O2 % BldC Oximetry 94 % Height 57 inches 4'9" Weight 101.00 lb BMI (Body Mass Index) 21.9 kg/m2 [place] Body Weight 100 lb Weight 45.814 kg BSA (Body Surface Area) 1.35 m2 Results Test Acquired Date Facility Test Result H/L Range Note FVL/Central 02/27/2021 [facility] SEE IMAGE FVC-Pred 2.73 L FVC-Pre 3.02 L FVC-%Pred-Pre 110 L FVC-LLN 2.18 L Fev1-Pred 2.18 L Fev1-Pre 1.65 L Fev1-%Pred-Pre 75 L Fev1-LLN 1.71 L Fev6-Pred 2.66 L Fev6-Pre 2.88 L Fev6-%Pred-Pre 108 L Fev6-LLN 2.12 L Agt2xit-Gfnj 80 % Icr9jfl-Nty 55 % Acb7ioi-%Pred-Pre 68 % Plq4sqv-TXL 70 % Gsb3zkk-Cqkc 97 % Wxy3zdr-Jub 96 % Spi5xxt-%Pred-Pre 98 % FEFMax-Pred 5.72 L/E/sec FEFMax-Pre 3.98 L/E/sec FEFMax-%Pred-Pre 69 L/E/sec FEFMax-LLN 4.36 L/E/sec Heg6969-Drpe 2.38 L/E/sec Zkb4966-Xaa 0.70 L/E/sec Ymc3809-%Pred-Pre 29 L/E/sec Asb1586-WHP 1.39 L/E/sec ExpTime-Pre 7.49 sec Mxm2jod0-Rabn 82 % Fll9agw8-Saf 57 % Mcn3fri3-%Pred-Pre 69 % Rmd1tvi9-UPO 73 % Procedures Description No Information Available [...] 1:00 pm - Jose Weiss MD at [facility] Pulmonary/Thoracic * 03/05/2021 10:15 am - NICOLAS Kang at [facility] 02/27/2021 - Jose Weiss MD* J43.1 Panlobular emphysema * R91.8 Other nonspecific abnormal finding of lung field * J44.9 Chronic obstructive pulmonary disease, unspecified * F17.218 Nicotine dependence, cigarettes, with other nicotine-induced * * New Labs:* FVL/Central, Scheduled: 08/29/21 * Follow up:* Will call CT 6 months with fvl Functional Status Description No Information Available Mental Status Description No Information Available Referrals Refer to Reason for Referral Status Appt Date Corey Mak MD SCHEDULE COLONOSCOPY Scheduled 12/2020 [address] [facility] [address] [place] [id number] [phone] Jose Weiss M.D. PANLOBULAR EMPHYSEMA J43.1 & ABN FINDING LUNG FIELD R91.8 Scheduled 02/20/2021 [facility] [address] [place], [place] [address] [phone]
--- OUTSIDE RECORDS SUMMARY | 2021-04-02 06:54 | CCD | Continuity of Care Document ---
Author Author Radha HEARN Organization Unknown Address [address] [place] [address] [place] [address] Phone [phone] Care Team Providers Care Head Worker Name Role Phone [facility] AUTM [phone] Problems Description No Information Available Social History [...] Available Procedures Date Code Description Status 02/22/2021 29458 Office/Outpatient New Low MDM 30 -44 Minutes Completed 02/22/2021 77154 Therapeutic, Prophylactic Or Milla gnostic Injection Subq/Im Completed 02/22/2021 20869 Pressurized/Non-Pres surized Inhalation Treatment,Acute Obstructio Completed Medical [...]
--- OUTSIDE RECORDS SUMMARY | 2021-04-02 06:54 | CCD | Continuity of Care Document ---
Author Author Radha WEISS MD Organization Unknown Address [address] [place] [address] Phone [phone] Care Team Providers Care Etl Tester Name Role Phone Petra Downs AUTM Kalani Schuster AUTM [phone] Varsha Kraus M.D. AUTM [phone] Problems Active Problems Provider Date Breast signs [...] lb BMI (Body Mass Index) 22.0 kg/m2 [place] Body Weight 100 lb Weight 46.040 kg BSA (Body Surface Area) 1.35 m2 06/20/2020 3:15pm BP Systolic 108 mmHg BP Diastolic 78 mmHg Heart Rate 101 /min O2 % BldC Oximetry 94 % Height 57 inches 4'9" Weight 101.00 lb BMI (Body Mass Index) 21.9 kg/m2 [place] Body Weight 100 lb Weight 45.814 kg BSA (Body Surface Area) 1.35 m2 Results Test Acquired Date Facility Test Result H/L Range Note FVL/[place] 02/27/2021 [facility] [employer] PDFReport SEE IMAGE FVC-Pred 2.73 L FVC-Pre 3.02 L FVC-%Pred-Pre 110 L FVC-LLN 2.18 L Fev1-Pred 2.18 L Fev1-Pre 1.65 L Fev1-%Pred-Pre 75 L Fev1-LLN 1.71 L Fev6-Pred 2.66 L Fev6-Pre 2.88 L Fev6-%Pred-Pre 108 L Fev6-LLN 2.12 L Orj9xbn-Tvfz 80 % Hyu1fmf-Sfz 55 % Cyw7hde-%Pred-Pre 68 % Dqn7yvi-OBZ 70 % Lem1skc-Mzdy 97 % Nlq9nkk-Pgd 96 % Zsi6lyi-%Pred-Pre 98 % FEFMax-Pred 5.72 L/E/sec FEFMax-Pre 3.98 L/E/sec FEFMax-%Pred-Pre 69 L/E/sec FEFMax-LLN 4.36 L/E/sec Yig4990-Usep 2.38 L/E/sec Jrs4698-Ofb 0.70 L/E/sec Zcv0562-%Pred-Pre 29 L/E/sec Dnb7362-MSO 1.39 L/E/sec ExpTime-Pre 7.49 sec Jcp2gcs8-Lvut 82 % Nfz9ttr0-Hgd 57 % Ijv2gwz8-%Pred-Pre 69 % Ftr1uyy3-DZR 73 % Procedures Date Code Description Status 02/27/2021 79596 Office/Outpatient Established Mo d MDM 30-39 Min Completed 02/27/2021 27761 Spirometry Completed Medical Devices Description No Information Available Encounters Type Date Location Provider Dx Diagnosis Office Visit 02/27/2021 2:15p [facility] Pulmonary/Thoracic Lawrenc eric Weiss MD J43.1 Panlobular emphysema R91.8 Other nonspecific abnormal f inding of lung field F17.218 Nicotine dependence, cigaret yaya, w oth disorders Assessments Date Code Description Provider 02/27/2021 J43.1 Panlobular emphysema Jose conte MD 02/27/2021 R91.8 Other nonspecific abnormal findi ng of lung field Jose Weiss MD 02/27/2021 F17.218 Nicotine dependence, cigarettes, with other nicotine-induced Jose Weiss MD 01/01/2021 J43.1 Panlobular emphysema Willy Daley D.O. 01/01/2021 R91.8 Other nonspecific abnormal findi ng of lung field Willy Daley D.O. Plan of Treatment Future Appointment(s):* 08/29/2021 1:00 pm - Joes Weiss MD at [facility] Pulmonary/Thoracic * 03/05/2021 10:15 am - NICOLAS Kang at [facility] Surgery Practice 02/27/2021 - Jose Weiss MD* J43.1 Panlobular emphysema * R91.8 Other nonspecific abnormal finding of lung field * F17.218 Nicotine dependence, cigarettes, with other nicotine-induced * * New Labs:* FVL/[place], Scheduled: 08/29/21 * Comments:* ~ At this point, I have urged her to follow through with her plans for smoking cessation. We refilled her Stiolto. She does have a nebulizer now, which I have asked her to use until she feels better. She is finishing her prednisone taper. ~ She clearly qualifies for low-dose CT scanning, and that order was placed, and I will either call her or give her written correspondence regarding the results of it when available.~ If she is doing well, I will see her in a minimum of 6 months with spirometry, oximetry and flow volume loop for her lung disease or sooner if problems arise with which we can be of assistance. * Follow up:* Will call CT 6 months with fvl Functional Status Description No Information Available Mental Status Description No Information Available Referrals Refer to Reason for Referral Status Appt Date Corey Mak MD SCHEDULE COLONOSCOPY Scheduled 12/2020 [address] [facility] [address] [place] [address] [phone] Jose Weiss M.D. PANLOBULAR EMPHYSEMA J43.1 & ABN FINDING LUNG FIELD R91.8 Scheduled 02/20/2021 [facility] [address] [place], [place] [id number] [phone]
--- OUTSIDE RECORDS SUMMARY | 2021-04-02 06:54 | CCD | Continuity of Care Document ---
Author Author Radha WEISS MD Organization Unknown Address [address] [place] [address] Phone [phone] Care Team Providers Care Skip Locator Name Role Phone Petra Downs AUTM Kalani Schuster AUTM [phone] Varsha Kraus M.D. AUTM [phone] Problems Active Problems Provider Date Breast signs [...] lb BMI (Body Mass Index) 22.0 kg/m2 [place] Body Weight 100 lb Weight 46.040 kg BSA (Body Surface Area) 1.35 m2 06/20/2020 3:15pm BP Systolic 108 mmHg BP Diastolic 78 mmHg Heart Rate 101 /min O2 % BldC Oximetry 94 % Height 57 inches 4'9" Weight 101.00 lb BMI (Body Mass Index) 21.9 kg/m2 [place] Body Weight 100 lb Weight 45.814 kg BSA (Body Surface Area) 1.35 m2 Results Test Acquired Date Facility Test Result H/L Range Note FVL/[place] 02/27/2021 [employer] PDFReport SEE IMAGE FVC-Pred 2.73 L FVC-Pre 3.02 L FVC-%Pred-Pre 110 L FVC-LLN 2.18 L Fev1-Pred 2.18 L Fev1-Pre 1.65 L Fev1-%Pred-Pre 75 L Fev1-LLN 1.71 L Fev6-Pred 2.66 L Fev6-Pre 2.88 L Fev6-%Pred-Pre 108 L Fev6-LLN 2.12 L Lwt6nws-Cpfk 80 % Gyr0zux-Ohy 55 % Mtf3adg-%Pred-Pre 68 % Hqp7oxr-AFK 70 % Dhb9uur-Ynbp 97 % Ttb1oox-Cel 96 % Jzw3jkf-%Pred-Pre 98 % FEFMax-Pred 5.72 L/E/sec FEFMax-Pre 3.98 L/E/sec FEFMax-%Pred-Pre 69 L/E/sec FEFMax-LLN 4.36 L/E/sec Lvz0687-Tqzd 2.38 L/E/sec Ovz0528-Ilp 0.70 L/E/sec Pet9807-%Pred-Pre 29 L/E/sec Oyp6104-CVW 1.39 L/E/sec ExpTime-Pre 7.49 sec Cqa2uyi9-Qbvv 82 % Pmq9pjy2-Edp 57 % Ayn8wdm3-%Pred-Pre 69 % Miu3yxw9-VWC 73 % Procedures Description No Information Available [...] 1:00 pm - Jose Weiss MD at [facility] Pulmonary/Thoracic * 03/05/2021 10:15 am - NICOLAS Kang at [facility] Surgery Practice 02/27/2021 - Jose Weiss MD* J43.1 Panlobular emphysema * R91.8 Other nonspecific abnormal finding of lung field * J44.9 Chronic obstructive pulmonary disease, unspecified * F17.218 Nicotine dependence, cigarettes, with other nicotine-induced * * New Labs:* FVL/[place], Scheduled: 08/29/21 * Follow up:* Will call CT 6 months with fvl Functional Status Description No Information Available Mental Status Description No Information Available Referrals Refer to Reason for Referral Status Appt Date Corey Mak MD SCHEDULE COLONOSCOPY Scheduled 12/2020 [address] [facility] [address] [place] [id number] [phone] Jose Weiss M.D. PANLOBULAR EMPHYSEMA J43.1 & ABN FINDING LUNG FIELD R91.8 Scheduled 02/20/2021 [facility] [address] [place], [place] [address] [phone]
--- OUTSIDE RECORDS SUMMARY | 2021-04-02 06:54 | CCD | Continuity of Care Document ---
Author Author Radha WEISS MD Organization Unknown Address [address] [place] [address] Phone [phone] Care Team Providers Care Charge Master Specialist Name Role Phone Petra Downs AUTM Kalani Schuster AUTM [phone] Varsha Kraus M.D. AUTM [phone] Problems Active Problems Provider Date Breast signs [...] lb BMI (Body Mass Index) 22.0 kg/m2 [place] Body Weight 100 lb Weight 46.040 kg BSA (Body Surface Area) 1.35 m2 06/20/2020 3:15pm BP Systolic 108 mmHg BP Diastolic 78 mmHg Heart Rate 101 /min O2 % BldC Oximetry 94 % Height 57 inches 4'9" Weight 101.00 lb BMI (Body Mass Index) 21.9 kg/m2 [place] Body Weight 100 lb Weight 45.814 kg BSA (Body Surface Area) 1.35 m2 Results Test Acquired Date Facility Test Result H/L Range Note FVL/[place] 02/27/2021 [employer] PDFReport SEE IMAGE FVC-Pred 2.73 L FVC-Pre 3.02 L FVC-%Pred-Pre 110 L FVC-LLN 2.18 L Fev1-Pred 2.18 L Fev1-Pre 1.65 L Fev1-%Pred-Pre 75 L Fev1-LLN 1.71 L Fev6-Pred 2.66 L Fev6-Pre 2.88 L Fev6-%Pred-Pre 108 L Fev6-LLN 2.12 L Qvs4bmw-Hjuq 80 % Vzv4qmn-Mic 55 % Ilf8jgy-%Pred-Pre 68 % Lpe3xtf-ZFJ 70 % Rjx6xoi-Zjlx 97 % Vff9lxb-Diu 96 % Dza1ffw-%Pred-Pre 98 % FEFMax-Pred 5.72 L/E/sec FEFMax-Pre 3.98 L/E/sec FEFMax-%Pred-Pre 69 L/E/sec FEFMax-LLN 4.36 L/E/sec Bdm2552-Kthq 2.38 L/E/sec Bnd1316-Gfh 0.70 L/E/sec Lpo8814-%Pred-Pre 29 L/E/sec Shz0392-KVB 1.39 L/E/sec ExpTime-Pre 7.49 sec Pew7jig2-Xhvr 82 % Pqn1gih0-Izr 57 % Flz1hwq3-%Pred-Pre 69 % Vye2fmv8-KOM 73 % Procedures Description No Information Available [...] 1:00 pm - Jose Weiss MD at [facility] Pulmonary/Thoracic * 03/05/2021 10:15 am - NICOLAS Kang at [facility] Surgery Practice 02/27/2021 - Jose Weiss MD* J43.1 Panlobular emphysema * R91.8 Other nonspecific abnormal finding of lung field * J44.9 Chronic obstructive pulmonary disease, unspecified * F17.218 Nicotine dependence, cigarettes, with other nicotine-induced * * New Labs:* FVL/[place], Scheduled: 08/29/21 * Follow up:* Will call CT 6 months with fvl Functional Status Description No Information Available Mental Status Description No Information Available Referrals Refer to Reason for Referral Status Appt Date Corey Mak MD SCHEDULE COLONOSCOPY Scheduled 12/2020 [address] [facility] [address] [place] [id number] [phone] Jose Weiss M.D. PANLOBULAR EMPHYSEMA J43.1 & ABN FINDING LUNG FIELD R91.8 Scheduled 02/20/2021 [facility] [address] [place], [place] [address] [phone]
--- OUTSIDE RECORDS SUMMARY | 2021-04-02 06:54 | CCD ---
Author Organization Unknown Address [address] [place] [address] Phone [phone] Care Team Providers Care Language Therapist Name Role Phone [facility] 2 [phone] Allergies Code Code System Name Reaction Severity [...] imen Nasopharyngeal Normal Sars-cov-2 negative negative Final [facility] Medical: [address] [facility] 12/10/2020 SARS CoV 2 RdRp Gene, QL Probe, Respiratory Spec imen Nasopharyngeal Normal Sars-cov-2 negative negative Final [facility] Medical: [address] [facility] 11/30/2020 SARS CoV 2 RdRp Gene, QL Probe, Respiratory Spec imen Nasopharyngeal Normal Sars-cov-2 negative negative Final [facility] Medical: [address] [facility] 11/15/2020 CBC W/ Auto Diff Blood venous Normal White Blood C ount 7.9 10 4.0-10.0 10 [facility]: 83 0 [facility] Blood venous Normal Red Blood Count 4.76 10 4.00- 5.40 10 [facility]: [address] [facility] Blood venous Normal Hemoglobin 15.2 g/dL 12.0-15. 5 g/dL [facility]: [address] [place] [address] Blood venous Normal Hematocrit 44.1 % 36.0-47.0 % [facility]: [address] [place] [address] Blood venous Normal Mean Corpuscular Volume 92.6 fL 80.0-96.0 fL [facility]: [address] [place] [address] Blood venous Normal Mean Corpuscular Hemoglob in 31.9 pg 27.0-33.0 pg [facility]: [address] [place] [address] Blood venous Normal Mean Corpuscular HGB Conc 34.5 g/dL 32.0-36.5 g/dL [facility]: [address] [place] [address] Blood venous Normal Red Cell Distribution Wid th 13.2 % 11.5-14.5 % [facility]: [address] [place] [address] Blood venous Normal Platelet Count, Automated 359 10 150-450 10 [facility]: [address] [place] [address] Blood venous Normal Neutrophils % 49.0 % 36.0-66. 0 % [facility]: [address] [place] [address] Blood venous Normal Lymph % 37.7 % 24.0-44.0 % [facility]: [address] [place] [address] Blood venous Normal [place] % 7.6 % 2.0-8.0 % [facility]: [address] [place] [address] Blood venous High Eos % 4.4 % 0.0-3.0 % [facility]: [address] [place] [address] Blood venous Normal Baso % 1.0 % 0.0-1.0 % [facility]: [address] [place] [address] Blood venous Normal Immature Granulocyte % 0.3 % 0-3.0 % [facility]: [address] [place] [address] Blood venous Normal Nucleated Red Blood Cell % 0. 0 % 0-0 % [facility]: [address] [place] [address] Blood venous Normal Neutrophils # 3.9 10 1.5-8.5 10 [facility]: [address] [place] [address] Blood venous Normal Lymph # 3.0 10 1.5-5.0 10 [facility]: [address] [facility] Blood venous Normal [place] # 0.6 10 0.0-0.8 10 [facility]: [address] [place] [address] Blood venous Normal Eos # 0.4 10 0.0-0.5 10 [facility]: [address] [place] [address] Blood venous Normal Baso # 0.1 10 0.0-0.2 10 [facility]: [address] [place] [address] 11/15/2020 CMP, Serum or Plasma Blood venous Normal Glu cose, Fasting 82 mg/dL 70-100 mg/dL [facility] nter: [address] [place] [address] Blood venous Normal Blood Urea Nitrogen 15 mg/dL 7-18 mg/dL [facility]: [address] [place] [address] Blood venous Normal Creatinine for GFR 0.84 mg/dL 0.55-1.30 mg/dL [facility]: [address] [place] [address] Blood venous Normal Glomerular Filtration Rate > 60.0 >58 [facility]: [address] [place] [address] Blood venous Normal Sodium Level 139 mEq/L 136-14 5 mEq/L [facility]: [address] [place] [address] Blood venous Normal Potassium Serum 4.7 mEq/L 3.5 -5.1 mEq/L [facility]: [address] [place] [address] Blood venous Normal Chloride Level 106 mEq/L 98-1 07 mEq/L [facility]: [address] [place] [address] Blood venous Normal Carbon Dioxide Level 31 mEq/L 21-32 mEq/L [facility]: [address] [place] [address] Blood venous Low Anion Gap 2 mEq/L 8-16 mEq/L [facility]: [address] [place] [address] Blood venous Normal Calcium Level 9.1 mg/dL 8.5-1 0.1 mg/dL [facility]: [address] [place] [address] Blood venous Normal AST/SGOT 13 U/L 7-37 U/L [facility]: [address] [facility] Blood venous Normal ALT/SGPT 17 U/L 12-78 U/L [facility]: [address] [facility] Blood venous Normal Alkaline Phosphatase 80 U/L 4 5-117 U/L [facility]: [address] [facility] Blood venous Normal Bilirubin,total 0.5 mg/dL 0.2 -1.0 mg/dL [facility]: [address] [facility] Blood venous Normal Total Protein 7.5 gm/dL 6.4-8 .2 gm/dL [facility]: 0 [facility] Blood venous Normal Albumin 4.1 gm/dL 3.2-5.2 gm/ dL [facility]: [address] [place] [address] Blood venous Normal Albumin/globulin Ratio 1.2 1.2-2.2 [facility]: [address] [place] [address] 11/15/2020 Lipid Panel, Blood Blood venous Normal Trigl ycerides Level 100 mg/dL <150 mg/dL [facility] nter: [address] [facility] Blood venous High Cholesterol Level 201 mg/dL < 200 mg/dL [facility]: [address] [facility] Blood venous Normal HDL Cholesterol 58 mg/dL >40 mg/dL [facility]: [address] [facility] Blood venous High LDL Cholesterol 123 mg/dL <10 0 mg/dL [facility]: [address] [facility] Blood venous Normal Non-hdl-c 143 mg/dL [facility]: [address] [facility] Blood venous Normal Cholesterol Risk Ratio 3.465 <5 [facility]: 0 [facility] 08/08/2020 CBC W/ Auto Diff Blood venous Normal White Blood C ount 7.1 10 4.0-10.0 10 [facility]: 83 0 [facility] Blood venous Normal Red Blood Count 4.60 10 4.00- 5.40 10 [facility]: [address] [place] [address] Blood venous Normal Hemoglobin 14.7 g/dL 12.0-15. 5 g/dL [facility]: [address] [place] [address] Blood venous Normal Hematocrit 42.2 % 36.0-47.0 % [facility]: [address] [place] [address] Blood venous Normal Mean Corpuscular Volume 91.7 fL 80.0-96.0 fL [facility]: [address] [place] [address] Blood venous Normal Mean Corpuscular Hemoglob in 32.0 pg 27.0-33.0 pg [facility]: [address] [place] [address] Blood venous Normal Mean Corpuscular HGB Conc 34.8 g/dL 32.0-36.5 g/dL [facility]: [address] [place] [address] Blood venous Normal Red Cell Distribution Wid th 12.9 % 11.5-14.5 % [facility]: [address] [place] [address] Blood venous Normal Platelet Count, Automated 316 10 150-450 10 [facility]: [address] [place] [address] Blood venous Normal Neutrophils % 41.8 % 36.0-66. 0 % [facility]: [address] [place] [address] Blood venous High Lymph % 46.0 % 24.0-44.0 % [facility]: [address] [place] [address] Blood venous Normal [place] % 6.8 % 2.0-8.0 % [facility]: [address] [place] [address] Blood venous High Eos % 4.0 % 0.0-3.0 % [facility]: [address] [place] [address] Blood venous High Baso % 1.1 % 0.0-1.0 % [facility]: [address] [place] [address] Blood venous Normal Immature Granulocyte % 0.3 % 0-3.0 % [facility]: [address] [place] [address] Blood venous Normal Nucleated Red Blood Cell % 0. 0 % 0-0 % [facility]: [address] [place] [address] Blood venous Normal Neutrophils # 3.0 10 1.5-8.5 10 [facility]: [address] [place] [address] Blood venous Normal Lymph # 3.3 10 1.5-5.0 10 [facility]: [address] [facility] Blood venous Normal [place] # 0.5 10 0.0-0.8 10 [facility]: [address] [place] [address] Blood venous Normal Eos # 0.3 10 0.0-0.5 10 [facility]: [address] [place] [address] Blood venous Normal Baso # 0.1 10 0.0-0.2 10 [facility]: [address] [place] [address] 08/08/2020 CMP, Serum or Plasma Blood venous Normal Glu cose, Fasting 96 mg/dL 70-100 mg/dL [facility] nter: [address] [place] [address] Blood venous Normal Blood Urea Nitrogen 12 mg/dL 7-18 mg/dL [facility]: [address] [place] [address] Blood venous Normal Creatinine for GFR 0.90 mg/dL 0.55-1.30 mg/dL [facility]: [address] [place] [address] Blood venous Normal Glomerular Filtration Rate > 60.0 >58 [facility]: [address] [place] [address] Blood venous Normal Sodium Level 137 mEq/L 136-14 5 mEq/L [facility]: [address] [place] [address] Blood venous Normal Potassium Serum 4.5 mEq/L 3.5 -5.1 mEq/L [facility]: [address] [place] [address] Blood venous Normal Chloride Level 105 mEq/L 98-1 07 mEq/L [facility]: [address] [place] [address] Blood venous Normal Carbon Dioxide Level 27 mEq/L 21-32 mEq/L [facility]: [address] [place] [address] Blood venous Low Anion Gap 5 mEq/L 8-16 mEq/L [facility]: [address] [place] [address] Blood venous Normal Calcium Level 9.7 mg/dL 8.5-1 0.1 mg/dL [facility]: [address] [facility] Blood venous Normal AST/SGOT 11 U/L 7-37 U/L [facility]: [address] [facility] Blood venous Normal ALT/SGPT 17 U/L 12-78 U/L [facility]: [address] [facility] Blood venous Normal Alkaline Phosphatase 95 U/L 4 5-117 U/L [facility]: [address] [facility] Blood venous Normal Bilirubin,total 0.3 mg/dL 0.2 -1.0 mg/dL [facility]: [address] [place] [address] Blood venous Normal Total Protein 7.3 gm/dL 6.4-8 .2 gm/dL [facility]: [address] [place] [address] Blood venous Normal Albumin 3.9 gm/dL 3.2-5.2 gm/ dL [facility]: [address] [place] [address] Blood venous Low Albumin/globulin Ratio 1.1 1.2-2.2 [facility]: [address] [place] [address] 08/08/2020 Lipid Panel, Blood Blood venous Normal Trigl ycerides Level 126 mg/dL <150 mg/dL [facility] nter: [address] [facility] Blood venous High Cholesterol Level 233 mg/dL < 200 mg/dL [facility]: [address] [place] [address] Blood venous Normal HDL Cholesterol 60 mg/dL >40 mg/dL [facility]: [address] [place] [address] Blood venous High LDL Cholesterol 148 mg/dL <10 0 mg/dL [facility]: [address] [place] [address] Blood venous Normal Non-hdl-c 173 mg/dL [facility]: 0 [facility] Blood venous Normal Cholesterol Risk Ratio 3.883 <5 [facility]: [address] [place] [address] 07/31/2020 SARS CoV 2 RdRp Gene, QL Probe, Respiratory Spec imen Nasopharyngeal Normal Sars-cov-2 negative negative Final [facility] Medical: [address] [facility] Past Encounters 12/17/2020 Exposure to SARS-CoV-2 Skinny Clemons MD: [address] [place] [address], Ph. 12/10/2020 Exposure to SARS-CoV-2 Skinny Clemons MD: [address] [place] [address], Ph. 11/30/2020 Exposure to SARS-CoV-2 Emy Dodd PA-C: [address] [place] [address], Ph. 11/22/2020 Nicotine Dependence with Current Use; Patient Asked to Attend; Hyperlipidemia Petra Downs [facility]: [address] [place] [address], Ph. 11/15/2020 Hyperlipidemia Skinny Clemons MD: [address] [place] [address], Ph. 08/13/2020 Tobacco Dependence Caused by Cigarettes; Low Back Pain; Hyperlipidemia; Patient Asked to Attend Petra Downs [facility]: [address] [place] [phone], Ph. 08/08/2020 Petra Downs [facility]: [address] [place] [address], Ph. 07/31/2020 Exposure to SARS-CoV-2 Skinny Clemons MD: [address] [place] [address], Ph. 02/20/2020 Hyperlipidemia; Nicotine Dependence with Current Use; Needs Influenza Immunization; Underweight Petra Downs [facility]: [address] [place] [address], Ph. Social History Tobacco Smoking Status Heavy [...] COLLECTION Height 62 in 02/20/2020 04:20PM ESTABLISHED [id number] Height Weight BMI Blood Pressure 62 in [...]
--- OUTSIDE RECORDS SUMMARY | 2021-04-02 06:56 | CCD ---
Author Author [facility] Organization [facility] Address Unknown Phone Unavailable Care Team Providers [employer] Owner Name Role Phone Ward Clemons MD Unavailable Unavailable Ward Clemons MD Unavailable Unavailable Ward Clemons MD Unavailable Unavailable Ward Clemons MD Unavailable Unavailable Ward Clemons MD Unavailable Unavailable Ward Clemons MD Unavailable Unavailable Ward Clemons MD Unavailable Unavailable Ward Clemons MD Unavailable Unavailable Ward Clmeons MD Unavailable Unavailable Ward Clemons MD Unavailable Unavailable Ward Clemons MD Unavailable Unavailable Ward Clemons MD Unavailable Unavailable Ward Clemons MD Unavailable Unavailable Wadr Clemons MD Unavailable Unavailable Ward Clemons MD Unavailable Unavailable Ward Clemons MD Unavailable Unavailable Ward Clemons MD Unavailable Unavailable Ward Clemons MD Unavailable Unavailable Ward Clemons MD Unavailable Unavailable Ward Clemons MD Unavailable Unavailable Ward Clemons MD Unavailable Unavailable Ward Clemons MD Unavailable Unavailable Ward Clemons MD Unavailable Unavailable Ward Clemons MD Unavailable Unavailable Ward Clemons MD Unavailable Unavailable Ward Clemons MD Unavailable Unavailable Ward Clemons MD Unavailable Unavailable Ward Clemons MD Unavailable Unavailable Ward Clemons MD Unavailable Unavailable Ward Clemons MD Unavailable Unavailable Ward Clemons MD Unavailable Unavailable Ward Clemons MD Unavailable Unavailable Ward Clemons MD Unavailable Unavailable Ward Clemons MD Unavailable Unavailable Ward Clemons MD Unavailable Unavailable Ward Clemons MD Unavailable Unavailable Ward Clemons MD Unavailable Unavailable Ward Clemons MD Unavailable Unavailable Ward Clemons MD Unavailable Unavailable Ward Clemons MD Unavailable Unavailable Ward Clemons MD Unavailable Unavailable Ward Clemons MD Unavailable Unavailable Ward Clemons MD Unavailable Unavailable Ward Clemons MD Unavailable Unavailable Ward Clemons MD Unavailable Unavailable Ward Clemons MD Unavailable Unavailable Ward Clemons MD Unavailable Unavailable Ward Clemons MD Unavailable Unavailable Ward Clemons MD Unavailable Unavailable Ward Clemons MD Unavailable Unavailable Ward Clemons MD Unavailable Unavailable Ward Clemons MD Unavailable Unavailable Ward Clemons MD Unavailable Unavailable Ward Clemons MD Unavailable Unavailable Ward Clemons MD Unavailable Unavailable Ward Clemons MD Unavailable Unavailable Ward Clemons MD Unavailable Unavailable Ward Clemons MD Unavailable Unavailable Ward Clemons MD Unavailable Unavailable Ward Clemons MD Unavailable Unavailable Ward Clemons MD Unavailable Unavailable Ward Clemons MD Unavailable Unavailable Ward Clemons MD Unavailable Unavailable Ward Clemons MD Unavailable Unavailable Ward Clemons MD Unavailable Unavailable Ward Clemons MD Unavailable Unavailable Ward Clemons MD Unavailable Unavailable Ward Clemons MD Unavailable Unavailable Ward Clemons MD Unavailable Unavailable Ward Clemons MD Unavailable Unavailable Ward Clemons MD Unavailable Unavailable Ward Clemons MD Unavailable Unavailable Ward Clemons MD Unavailable Unavailable Ward Clemons MD Unavailable Unavailable Ward Clemons MD Unavailable Unavailable Ward Clemons MD Unavailable Unavailable Ward Clemons MD Unavailable Unavailable Ward Clemons MD Unavailable Unavailable Ward Clemons MD Unavailable Unavailable Ward Clemons MD Unavailable Unavailable Ward Clemons MD Unavailable Unavailable Ward Clemons MD Unavailable Unavailable Ward Clemons MD Unavailable Unavailable Ward Clemons MD Unavailable Unavailable Ward Clemons MD Unavailable Unavailable Ward Clemons MD Unavailable Unavailable Ward Clemons MD Unavailable Unavailable Ward Clemons MD Unavailable Unavailable Ward Clemons MD Unavailable Unavailable Ward Clemons MD Unavailable Unavailable Ward Clemons MD Unavailable Unavailable Ward Clemons MD Unavailable Unavailable Ward Clemons MD Unavailable Unavailable Ward Clemons MD Unavailable Unavailable [place], Garland Porras MD Unavailable Unavailable Bolla, Garland Porras MD Unavailable Unavailable Bolla, Garland Porras MD Unavailable Unavailable Bolla, Garland Porras MD Unavailable Unavailable Bolla, Garland Porras MD Unavailable Unavailable Bolla, Garland Porras MD Unavailable Unavailable [place]olla, Garland Porras MD Unavailable Unavailable [place], Garland Porras MD Unavailable Unavailable [place], Garland Porras MD Unavailable Unavailable [place], Garland Porras MD Unavailable Unavailable [place], Garland Porras MD Unavailable Unavailable [place], Garland Porras MD Unavailable Unavailable [place]olla, Garland Porras MD Unavailable Unavailable Bolla, Garland Porras MD Unavailable Unavailable [place], Garland Porras MD Unavailable Unavailable [place]olla, Garland Porras MD Unavailable Unavailable Bolla, Garland Porras MD Unavailable Unavailable [place]olla, Garland Porras MD Unavailable Unavailable [place]olla, Garland Porras MD Unavailable Unavailable [place]olla, Garland Porras MD Unavailable Unavailable Bolla, Garland Porras MD Unavailable Unavailable [place], Garland Porras MD Unavailable Unavailable [place]olla, Garland Porras MD Unavailable Unavailable [place]olla, Garland Porras MD Unavailable Unavailable Bolbhavesh, Garland Porras MD Unavailable Unavailable [place]olla, Garland Porras MD Unavailable Unavailable Bolbhavesh, Garland Porras MD Unavailable Unavailable [place]olla, Garland Porras MD Unavailable Unavailable Bolbhavesh, Garland Porras MD Unavailable Unavailable [place]olla, Garland Porras MD Unavailable Unavailable Bolbhavesh, Garland Porras MD Unavailable Unavailable Bolbhavesh, Garland Porras MD Unavailable Unavailable Bolbhavesh, Garland Porras MD Unavailable Unavailable Bolla, Garland Porras MD Unavailable Unavailable Bolbhavesh, Garland Porras MD Unavailable Unavailable Bolbhavesh, Garland Porras MD Unavailable Unavailable Bolbhavesh, Garland Porras MD Unavailable Unavailable Bolbhavesh, Garland Porras MD Unavailable Unavailable Bolla, Garland Porras MD Unavailable Unavailable Bolbhavesh, Garland Porras MD Unavailable Unavailable [place]olla, Garland Porras MD Unavailable Unavailable Bolbhavesh, Garland Porras MD Unavailable Unavailable Bolbhavesh, Garland Porras MD Unavailable Unavailable Bolbhavesh, Garland Porras MD Unavailable Unavailable Bolbhavesh, Garland Porras MD Unavailable Unavailable Bolla, Garland Porras MD Unavailable Unavailable Bolbhavesh, Garland Porras MD Unavailable Unavailable [place]olla, Garland Porras MD Unavailable Unavailable Bolbhavesh, Garland Porras MD Unavailable Unavailable Ptera Downs SUPERVISOR AGENCY APPOINTMENTS Unavailable Unavailable LETTIERE, A SEE PA Unavailable Unavailable LETTIERE, A SEE PA Unavailable Unavailable LETTIERE, A SEE PA Unavailable Unavailable LETTIERE, A SEE PA Unavailable Unavailable LETTIERE, A SEE PA Unavailable Unavailable LETTIERE, A SEE PA Unavailable Unavailable LETTIERE, A SEE PA Unavailable Unavailable LETTIERE, A SEE PA Unavailable Unavailable LETTIERE, A SEE PA Unavailable Unavailable LETTIERE, A SEE PA Unavailable Unavailable LETTIERE, A SEE PA Unavailable Unavailable LETTIERE, A SEE PA Unavailable Unavailable LETTIERE, A SEE PA Unavailable Unavailable LETTIERE, A SEE PA Unavailable Unavailable LETTIERE, A SEE PA Unavailable Unavailable LETTIERE, A SEE PA Unavailable Unavailable LETTIERE, A SEE PA Unavailable Unavailable LETTIERE, A SEE PA Unavailable Unavailable LETTIERE, A SEE PA Unavailable Unavailable LETTIERE, A SEE PA Unavailable Unavailable LETTIERE, A SEE PA Unavailable Unavailable LETTIERE, A SEE PA Unavailable Unavailable LETTIERE, A SEE PA Unavailable Unavailable LETTIERE, A SEE PA Unavailable Unavailable LETTIERE, A SEE PA Unavailable Unavailable LETTIERE, A SEE PA Unavailable Unavailable LETTIERE, A SEE PA Unavailable Unavailable LETTIERE, A SEE PA Unavailable Unavailable LETTIERE, A SEE PA Unavailable Unavailable LETTIERE, A SEE PA Unavailable Unavailable LETTIERE, A SEE PA Unavailable Unavailable Nayana, Roselyn Unavailable Unavailable Nayana, Roselyn Unavailable Unavailable Nayana, Roselyn Unavailable Unavailable Nayana, Roselyn Unavailable Unavailable Nayana, Roselyn Unavailable Unavailable Nayana, Roselyn Unavailable Unavailable Nayana, Roselyn Unavailable Unavailable Nayana, Roselyn Unavailable Unavailable Nayana, Roselyn Unavailable Unavailable Nayana, Roselyn Unavailable Unavailable Nayana, Roselyn Unavailable Unavailable Nayana, Roselyn Unavailable Unavailable Nayana, Roselyn Unavailable Unavailable Nayana, Roselyn Unavailable Unavailable Nayana, Roselyn Unavailable Unavailable Nayana, Roselyn Unavailable Unavailable Nayana, Roselyn Unavailable Unavailable Nayana, Roselyn Unavailable Unavailable Nayana, Roselyn Unavailable Unavailable Nayana, Roselyn Unavailable Unavailable Nayana, Roselyn Unavailable Unavailable Nayana, Roselyn Unavailable Unavailable Nayana, Roselyn Unavailable Unavailable Nayana, Roselyn Unavailable Unavailable Nayana, Roselyn Unavailable Unavailable Nayana, Roselyn Unavailable Unavailable Nayana, Roselyn Unavailable Unavailable Nayana, Roselyn Unavailable Unavailable Himanshu, A Petra SUPERVISOR AGENCY APPOINTMENTS Unavailable Unavailable Himanshu, A Petra SUPERVISOR AGENCY APPOINTMENTS Unavailable Unavailable Himanshu, A Petra SUPERVISOR AGENCY APPOINTMENTS Unavailable Unavailable Himanshu, A Petra SUPERVISOR AGENCY APPOINTMENTS Unavailable Unavailable Himanshu, A Petra SUPERVISOR AGENCY APPOINTMENTS Unavailable Unavailable Himanshu, A Petra SUPERVISOR AGENCY APPOINTMENTS Unavailable Unavailable Himanshu, A Petra SUPERVISOR AGENCY APPOINTMENTS Unavailable Unavailable Himanshu, A Petra SUPERVISOR AGENCY APPOINTMENTS Unavailable Unavailable Himanshu, A Petra SUPERVISOR AGENCY APPOINTMENTS Unavailable Unavailable Himanshu, A Petra SUPERVISOR AGENCY APPOINTMENTS Unavailable Unavailable Himanshu, A Petra SUPERVISOR AGENCY APPOINTMENTS Unavailable Unavailable Himanshu, A Petra SUPERVISOR AGENCY APPOINTMENTS Unavailable Unavailable Himanshu, A Petra SUPERVISOR AGENCY APPOINTMENTS Unavailable Unavailable [place], A Petra SUPERVISOR AGENCY APPOINTMENTS Unavailable Unavailable [place], A Petra SUPERVISOR AGENCY APPOINTMENTS Unavailable Unavailable [place], A Petra SUPERVISOR AGENCY APPOINTMENTS Unavailable Unavailable [place], A Petra SUPERVISOR AGENCY APPOINTMENTS Unavailable Unavailable [place], A Petra SUPERVISOR AGENCY APPOINTMENTS Unavailable Unavailable [place], A Petra SUPERVISOR AGENCY APPOINTMENTS Unavailable Unavailable [place], A Petra SUPERVISOR AGENCY APPOINTMENTS Unavailable Unavailable [place], A Petra SUPERVISOR AGENCY APPOINTMENTS Unavailable Unavailable [place], A Petra SUPERVISOR AGENCY APPOINTMENTS Unavailable Unavailable [place], A Petra SUPERVISOR AGENCY APPOINTMENTS Unavailable Unavailable [place], A Petra SUPERVISOR AGENCY APPOINTMENTS Unavailable Unavailable [place], A Petra SUPERVISOR AGENCY APPOINTMENTS Unavailable Unavailable [place], A Petra SUPERVISOR AGENCY APPOINTMENTS Unavailable Unavailable [place], A Petra SUPERVISOR AGENCY APPOINTMENTS Unavailable Unavailable [place], A Petra SUPERVISOR AGENCY APPOINTMENTS Unavailable Unavailable [place], A Petra SUPERVISOR AGENCY APPOINTMENTS Unavailable Unavailable Himanshu, A Petra SUPERVISOR AGENCY APPOINTMENTS Unavailable Unavailable Himanshu, A Petra SUPERVISOR AGENCY APPOINTMENTS Unavailable Unavailable Jumalon, M Corazon SUPERVISOR AGENCY APPOINTMENTS Unavailable Unavailable Jumalon, M Corazon SUPERVISOR AGENCY APPOINTMENTS Unavailable Unavailable Jumalon, M Corazon SUPERVISOR AGENCY APPOINTMENTS Unavailable Unavailable Jumalon, M Corazon SUPERVISOR AGENCY APPOINTMENTS Unavailable Unavailable Jumalon, M Corazon SUPERVISOR AGENCY APPOINTMENTS Unavailable Unavailable Jumalon, M Corazon SUPERVISOR AGENCY APPOINTMENTS Unavailable Unavailable Jumalon, M Corazon SUPERVISOR AGENCY APPOINTMENTS Unavailable Unavailable Jumalon, M Corazon SUPERVISOR AGENCY APPOINTMENTS Unavailable Unavailable Jumalon, M Corazon SUPERVISOR AGENCY APPOINTMENTS Unavailable Unavailable Jumalon, M Corazon SUPERVISOR AGENCY APPOINTMENTS Unavailable Unavailable Jumalon, M Corazon SUPERVISOR AGENCY APPOINTMENTS Unavailable Unavailable Jumalon, M Corazon SUPERVISOR AGENCY APPOINTMENTS Unavailable Unavailable Jumalon, M Corazon SUPERVISOR AGENCY APPOINTMENTS Unavailable Unavailable Jumalon, M Corazon SUPERVISOR AGENCY APPOINTMENTS Unavailable Unavailable Jumalon, M Corazon SUPERVISOR AGENCY APPOINTMENTS Unavailable Unavailable Jumalon, M Corazon SUPERVISOR AGENCY APPOINTMENTS Unavailable Unavailable Jumalon, M Corazon SUPERVISOR AGENCY APPOINTMENTS Unavailable Unavailable Jumalon, M Corazon SUPERVISOR AGENCY APPOINTMENTS Unavailable Unavailable Jumalon, M Corazon SUPERVISOR AGENCY APPOINTMENTS Unavailable Unavailable Jumalon, M Corazon SUPERVISOR AGENCY APPOINTMENTS Unavailable Unavailable Jumalon, M Corazon SUPERVISOR AGENCY APPOINTMENTS Unavailable Unavailable Jumalon, M Corazon SUPERVISOR AGENCY APPOINTMENTS Unavailable Unavailable Jumalon, M Corazon SUPERVISOR AGENCY APPOINTMENTS Unavailable Unavailable Jumalon, M Corazon SUPERVISOR AGENCY APPOINTMENTS Unavailable Unavailable Jumalon, M Corazon SUPERVISOR AGENCY APPOINTMENTS Unavailable Unavailable Jumalon, M Corazon SUPERVISOR AGENCY APPOINTMENTS Unavailable Unavailable Jumalon, M Corazon SUPERVISOR AGENCY APPOINTMENTS Unavailable Unavailable Jumalon, M Corazon SUPERVISOR AGENCY APPOINTMENTS Unavailable Unavailable Jumalon, M Corazon SUPERVISOR AGENCY APPOINTMENTS Unavailable Unavailable Jumalon, M Corazon SUPERVISOR AGENCY APPOINTMENTS Unavailable Unavailable Rust, L Hilda RPA Unavailable Unavailable Rust, L Hilda RPA Unavailable Unavailable Rust, L Hilda RPA Unavailable Unavailable Rust, L Hilda RPA Unavailable Unavailable Rust, L Hilda RPA Unavailable Unavailable Rust, L Hilda RPA Unavailable Unavailable Rust, L Hilda RPA Unavailable Unavailable Rust, L Hilda RPA Unavailable Unavailable Rust, L Hilda RPA Unavailable Unavailable Rust, L Hilda RPA Unavailable Unavailable Rust, L Hilda RPA Unavailable Unavailable Rust, L Hilda RPA Unavailable Unavailable Rust, L Hilda RPA Unavailable Unavailable Rust, L Hilda RPA Unavailable Unavailable Rust, L Hilda RPA Unavailable Unavailable Rust, L Hilda RPA Unavailable Unavailable Rust, L Hilda RPA Unavailable Unavailable Rust, L Hilda RPA Unavailable Unavailable Rust, L Hilda RPA Unavailable Unavailable Rust, L Hilda RPA Unavailable Unavailable Rust, L Hilda RPA Unavailable Unavailable Rust, L Hilda RPA Unavailable Unavailable Rust, L Hilda RPA Unavailable Unavailable Rust, L Hilda RPA Unavailable Unavailable Rust, L Hilda RPA Unavailable Unavailable Rust, L Hilda RPA Unavailable Unavailable Rust, L Hilda RPA Unavailable Unavailable Rust, L Hilda RPA Unavailable Unavailable Rust, L Hilda RPA Unavailable Unavailable Rust, L Hilda RPA Unavailable Unavailable Rust, L Hilda RPA Unavailable Unavailable Rust, L Hilda RPA Unavailable Unavailable Manan Carrera MD Unavailable Unavailable Manan Carrera MD Unavailable Unavailable Manan Carrera MD Unavailable Unavailable Carrera, Manna Garcia MD Unavailable Unavailable Carrera, Manan Garcia MD Unavailable Unavailable Carrera, Manan Garcia MD Unavailable Unavailable Carrera, Manan Garcia MD Unavailable Unavailable Carrera, Manan Garcia MD Unavailable Unavailable Carrera, Manan Garcia MD Unavailable Unavailable Carrera, Manan Garcia MD Unavailable Unavailable Carrera, Manan Garcia MD Unavailable Unavailable Carrera, Manan Garcia MD Unavailable Unavailable Carrera, Manan Garcia MD Unavailable Unavailable Carrera, Manan Garcia MD Unavailable Unavailable Carrera, Manan Garcia MD Unavailable Unavailable Carrera, Manan Garcia MD Unavailable Unavailable Carrera, Manan Garcia MD Unavailable Unavailable Carrera, Manan Garcia MD Unavailable Unavailable Carrera, Manan Garcia MD Unavailable Unavailable Carrera, Manan Garcia MD Unavailable Unavailable Carrera, Manan Garcia MD Unavailable Unavailable Carrera, Manan Garcia MD Unavailable Unavailable Carrera, Manan Garcia MD Unavailable Unavailable Carrera, Manan Garcia MD Unavailable Unavailable Carrera, Manan Garcia MD Unavailable Unavailable Carrera, Manan Garcia MD Unavailable Unavailable Carrera, Manan Garcia MD Unavailable Unavailable Carrera, Manan Garcia MD Unavailable Unavailable Carrera, Manan Garcia MD Unavailable Unavailable Carrera, Manan Garcia MD Unavailable Unavailable Carrera, Manan Garcia MD Unavailable Unavailable Carrera, Manan Garcia MD Unavailable Unavailable Carrera, Manan Garcia MD Unavailable Unavailable Carrera, Manan Garcia MD Unavailable Unavailable Carrera, Manan Garcia MD Unavailable Unavailable Carrera, Manan Garcia MD Unavailable Unavailable Carrera, Manan Garcia MD Unavailable Unavailable Carrera, Manan Garcia MD Unavailable Unavailable Carrera, Manan Garcia MD Unavailable Unavailable Carrera, Manan Garcia MD Unavailable Unavailable Carrera, Manan Garcia MD Unavailable Unavailable Carrera, Manan Garcia MD Unavailable Unavailable Carrera, Manan Garcia MD Unavailable Unavailable Carrera, Manan Garcia MD Unavailable Unavailable Carrera, Manan Garcia MD Unavailable Unavailable Carrera, Manan Garcia MD Unavailable Unavailable Carrera, Manan Garcia MD Unavailable Unavailable Carrera, Manan Garcia MD Unavailable Unavailable Deandre, Manan Garcia MD Unavailable Unavailable Deandre, Manan Garcia MD Unavailable Unavailable Deandre, Manan Garcia MD Unavailable Unavailable Carrera, Manan Garcia MD Unavailable Unavailable Carrera, Manan Garcia MD Unavailable Unavailable Carrera, Manan Garcia MD Unavailable Unavailable CarreraManan MD Unavailable Unavailable Himanshu, A Petra SUPERVISOR AGENCY APPOINTMENTS Unavailable Unavailable Himanshu, A Petra SUPERVISOR AGENCY APPOINTMENTS Unavailable Unavailable Himanshu, A Petra SUPERVISOR AGENCY APPOINTMENTS Unavailable Unavailable Himanshu, A Petra SUPERVISOR AGENCY APPOINTMENTS Unavailable Unavailable Himanshu, A Petra SUPERVISOR AGENCY APPOINTMENTS Unavailable Unavailable Himanshu, A Petra SUPERVISOR AGENCY APPOINTMENTS Unavailable Unavailable Himanshu, A Petra SUPERVISOR AGENCY APPOINTMENTS Unavailable Unavailable Himanshu, A Petra SUPERVISOR AGENCY APPOINTMENTS Unavailable Unavailable Himanshu, A Petra SUPERVISOR AGENCY APPOINTMENTS Unavailable Unavailable Himanshu, A Petra SUPERVISOR AGENCY APPOINTMENTS Unavailable Unavailable Himanshu, A Petra SUPERVISOR AGENCY APPOINTMENTS Unavailable Unavailable Himanshu, A Petra SUPERVISOR AGENCY APPOINTMENTS Unavailable Unavailable Himanshu, A Petra SUPERVISOR AGENCY APPOINTMENTS Unavailable Unavailable Himanshu, A Petra SUPERVISOR AGENCY APPOINTMENTS Unavailable Unavailable Himanshu, A Petra SUPERVISOR AGENCY APPOINTMENTS Unavailable Unavailable Himanshu, A Petra SUPERVISOR AGENCY APPOINTMENTS Unavailable Unavailable Himanshu, A Petra SUPERVISOR AGENCY APPOINTMENTS Unavailable Unavailable Himanshu, A Petra SUPERVISOR AGENCY APPOINTMENTS Unavailable Unavailable Himanshu, A Petra SUPERVISOR AGENCY APPOINTMENTS Unavailable Unavailable Himanshu, A Petra SUPERVISOR AGENCY APPOINTMENTS Unavailable Unavailable Himanshu, A Petra SUPERVISOR AGENCY APPOINTMENTS Unavailable Unavailable Himanshu, A Petra SUPERVISOR AGENCY APPOINTMENTS Unavailable Unavailable Himanshu, A Petra SUPERVISOR AGENCY APPOINTMENTS Unavailable Unavailable Himanshu, A Petra SUPERVISOR AGENCY APPOINTMENTS Unavailable Unavailable Himanshu, A Petra SUPERVISOR AGENCY APPOINTMENTS Unavailable Unavailable Himanshu, A Petra SUPERVISOR AGENCY APPOINTMENTS Unavailable Unavailable Himanshu, A Petra SUPERVISOR AGENCY APPOINTMENTS Unavailable Unavailable Himanshu, A Petra SUPERVISOR AGENCY APPOINTMENTS Unavailable Unavailable Himanshu, A Petra SUPERVISOR AGENCY APPOINTMENTS Unavailable Unavailable Himanshu, A Petra SUPERVISOR AGENCY APPOINTMENTS Unavailable Unavailable Himanshu, A Petra SUPERVISOR AGENCY APPOINTMENTS Unavailable Unavailable Scordo, M Emy PA Unavailable Unavailable Scordo, M Emy PA Unavailable Unavailable Scordo, M Emy PA Unavailable Unavailable Scordo, M Emy PA Unavailable Unavailable Scordo, M Emy PA Unavailable Unavailable Scordo, M Emy PA Unavailable Unavailable Scordo, M Emy PA Unavailable Unavailable Scordo, M Emy PA Unavailable Unavailable Scordo, M Emy PA Unavailable Unavailable Scordo, M Emy PA Unavailable Unavailable Scordo, M Emy PA Unavailable Unavailable Scordo, M Emy PA Unavailable Unavailable Scordo, M Emy PA Unavailable Unavailable Scordo, M Emy PA Unavailable Unavailable Scordo, M Emy PA Unavailable Unavailable Scordo, M Emy PA Unavailable Unavailable Scordo, M Emy PA Unavailable Unavailable Scordo, M Emy PA Unavailable Unavailable Scordo, M Emy PA Unavailable Unavailable Scordo, M Emy PA Unavailable Unavailable Scordo, M Emy PA Unavailable Unavailable Scordo, M Emy PA Unavailable Unavailable Scordo, M Emy PA Unavailable Unavailable Scordo, M Emy PA Unavailable Unavailable Scordo, M Emy PA Unavailable Unavailable Scordo, M Emy PA Unavailable Unavailable Scordo, M Emy PA Unavailable Unavailable Scordo, M Emy PA Unavailable Unavailable Scordo, M Emy PA Unavailable Unavailable Scordo, M Emy PA Unavailable Unavailable Scordo, M Emy PA Unavailable Unavailable Scordo, M Emy PA Unavailable Unavailable Scordo, M Emy PA Unavailable Unavailable Scordo, M Emy PA Unavailable Unavailable Scordo, M Emy PA Unavailable Unavailable Scordo, M Emy PA Unavailable Unavailable Scordo, M Emy PA Unavailable Unavailable Scordo, M Emy PA Unavailable Unavailable Scordo, M Emy PA Unavailable Unavailable Scordo, M Emy PA Unavailable Unavailable Scordo, M Emy PA Unavailable Unavailable Scordo, M Emy PA Unavailable Unavailable Scordo, M Emy PA Unavailable Unavailable Scordo, M Emy PA Unavailable Unavailable Scordo, M Emy PA Unavailable Unavailable Scordo, M Emy PA Unavailable Unavailable Scordo, M Emy PA Unavailable Unavailable Re-disclosure Warning The records that you are about to access may contain information from federally-assisted alcohol or drug abuse programs. If such information is present, then the following federally mandated warning applies: This information has been disclosed to you from records protected by federal confidentiality rules (42 CFR part 2). The federal rules prohibit you from making any further disclosure of this information unless further disclosure is expressly permitted by the written consent of the person to whom it pertains or as otherwise permitted by 42 CFR part 2. A general authorization for the release of medical or other information is NOT sufficient for this purpose. The Federal rules restrict any use of the information to criminally investigate or prosecute any alcohol or drug abuse patient.The records that you are about to access may contain highly sensitive health information, the redisclosure of which is protected by Article 27-F of the [facility] Public Health law. If you continue you may have access to information: Regarding HIV / AIDS; Provided by facilities licensed or operated by the [facility] Office of Mental Health; or Provided by the [facility] Office for People With Developmental Disabilities. If such information is present, then the following [facility] mandated warning applies: This information has been disclosed to you from confidential records which are protected by state law. State law prohibits you from making any further disclosure of this information without the specific written consent of the person to whom it pertains, or as otherwise permitted by law. Any unauthorized further disclosure in violation of state law may result in a fine or fpc sentence or both. A general authorization for the release of medical or other information is NOT sufficient authorization for further disc losure. Family History Family Member Name Family Member Gender Family Member Status Date o f Status Description Data Source(s) Unknown Unknown Problem [facility] ([facility] Unknown Female Problem [facility] ([facility] Unknown Male Problem MEDENT ([facility]) Encounters Encounter Providers Location Date Indications Data Source(s ) Outpatient Attender: Hilda Bermudezang/[place] 03/05/2021 09:15:00 AM EST [facility] ([facility] Outpatient Attender: Jose Sinha/[place]/Vikash/R eindl 02/27/2021 02:15:00 PM EDT [facility] ([facility]) Varsha Kraus MD: [address] [place] [phone], Ph. Attender: Varsha Kraus [facility] Medical 02/25/2021 12:00:00 AM EDT [place] ([facility]) Outpatient Attender: SEE raphaely 02/22/2021 05:30:00 PM EDT MED[facility] ([facility]) Skinny Clemons MD: [address] [place] [address], Ph. Attender: Skinny Clemons MD [facility] Medical 12/17/2020 12:00:00 AM EDT [place] ([facility]) Skinny Clemons MD: [address] [place] [phone], Ph. Attender: Skinny Clemons MD [facility] Medical 12/17/2020 12:00:00 AM EDT [place] ([facility]) Skinny Clemons MD: [address] [place] [phone], Ph. Attender: Skinny Clemons MD [facility] Medical 12/17/2020 12:00:00 AM EDT [facility] ([facility]) Vern Montoya MD: [address] [facility] [address], [address], [place] [address], Ph. Attender: Vern Montoya MD [facility] Main [facility] 12/13/2020 12:00:00 AM EDT [place] ([facility]) Skinny Clemons MD: [address], [place] [address], Ph. Attender: Skinny Clemons MD [facility] Medical 12/10/2020 12:00:00 AM EDT [place] ([facility]) Skinny Clemons MD: [address] [place] [address], Ph. Attender: Skinny Clemons MD [facility] Medical 12/10/2020 12:00:00 AM EDT [place] ([facility]) Skinny Clemons MD: [address] [place] [address], Ph. Attender: Skinny Clemons MD [facility] Medical 12/10/2020 12:00:00 AM EDT [place] ([facility]) Emy Dodd PA-C: [address], [place] [address], Ph. Attender: Emy VALENZUELA [facility] Medical 11/30/2020 12:00:00 AM EDT [place] ([facility]) Emy Dodd PA-C: [address], [facility] [place] [address], Ph. Attender: Emy VALENZUELA [facility] Medical 11/30/2020 12:00:00 AM EDT [place] ([facility]) Emy Dodd PA-C: [address], [facility] [place] [address], Ph. Attender: Emy VALENZUELA [facility] Medical 11/30/2020 12:00:00 AM EDT [place] ([facility]) Petrara Downs [facility]: [address], [place] [address], Ph. Attender: Petra Downs [facility] Medical 11/22/2020 12:00:00 AM EDT [place] ([facility]) Petra Downs [facility]: [address], [place] [address], Ph. Attender: Petra Downs [facility] Medical 11/22/2020 12:00:00 AM EDT [place] ([facility]) Petra Downs [facility]: [address], [place] [address], Ph. Attender: Petra Downs [facility] Medical 11/22/2020 12:00:00 AM EDT [place] ([facility]) Petra Downs [facility]: [address], [place] [address], Ph. Attender: Petra Downs [facility] Medical 11/22/2020 12:00:00 AM EDT [place] ([facility]) Skinny Clemons MD: [address] [place] [address], Ph. Attender: Skinny Clemons MD [facility] Medical 11/15/2020 12:00:00 AM EDT [place] ([facility]) Skinny Clemons MD: [address] [place] [address], Ph. Attender: Skinny Clemons MD [facility] Medical 11/15/2020 12:00:00 AM EDT [place] ([facility]) Skinny Clemons MD: [address] [place] [address], Ph. Attender: Skinny Clemons MD [facility] Medical 11/15/2020 12:00:00 AM EDT [place] ([facility]) Skinny Clemons MD: [address] [place] [address], Ph. Attender: Skinny Clemons MD [facility] Medical 11/15/2020 12:00:00 AM EDT [place] ([facility]) Skinny Clemons MD: [address] [place] [address], Ph. Attender: Skinny Clemons MD [facility] Medical 11/15/2020 12:00:00 AM EDT [place] ([facility]) Vern Montoya MD: [address], [place] [address], Ph. [phone] Attender: [place] [facility] 11/12/2020 12:00:00 AM EDT [place] ([facility]) Vern Montoya MD: [address], [place] [address], Ph. [phone] Attender: [place] Mont[place] MD [place] [facility] 11/12/2020 12:00:00 AM EDT [place] ([facility]) Corazon Govea, COUNSELLING PSYCHOLOGIST: [address], [place] [address], Ph. Attender: Corazon REBOLLAR [place] - [facility] 11/07/2020 12:00:00 AM EDT [place] ([facility]) Corazon Govea, COUNSELLING PSYCHOLOGIST: [address], [address], [place] [address], Ph. Attender: Corazon Govea [facility] - [facility] 11/07/2020 12:00:00 AM EDT [place] ([facility]) Corazon Govea, COUNSELLING PSYCHOLOGIST: [address], [address], [place] [address], Ph. Attender: Corazon Govea [facility] - [facility] 11/07/2020 12:00:00 AM EDT [place] ([facility]) Vern Montoya MD: [address], [address], [place] [address], Ph. Attender: [place] Mont[place] [facility] 10/23/2020 12:00:00 AM EDT [place] ([facility]) Vern Montoya MD: [address], [address], [place] [address], Ph. Attender: [place] [facility] 10/23/2020 12:00:00 AM EDT [place] ([facility]) Vern Montoya MD: [address], [address], [place] [address], Ph. Attender: [place] [facility] 10/23/2020 12:00:00 AM EDT [place] ([facility]) Vern Montoya MD: [address], [address], [place] [address], Ph. Attender: [place] [facility] 10/23/2020 12:00:00 AM EDT [place] ([facility]) Corazon Govea, COUNSELLING PSYCHOLOGIST: [address], [place] [address], Ph. Attender: Corazon Govea [facility] - [facility] 10/04/2020 12:00:00 AM EDT [place] ([facility]) Corazon Govea, COUNSELLING PSYCHOLOGIST: [address], [place] [address], Ph. Attender: Corazon Govea [facility] - [facility] 10/04/2020 12:00:00 AM EDT [place] ([facility]) Corazon Govea, COUNSELLING PSYCHOLOGIST: [address], [place] [address], Ph. Attender: Corazon Govea [facility] - [facility] 10/04/2020 12:00:00 AM EDT [place] ([facility]) Corazon Govea, COUNSELLING PSYCHOLOGIST: [address], [place] [address], Ph. Attender: Corazon Govea [facility] - [facility] 10/04/2020 12:00:00 AM EDT [place] ([facility]) Corazon Govea, COUNSELLING PSYCHOLOGIST: [address], [place] [address], Ph. Attender: Corazon Govea [facility] - [facility] 10/04/2020 12:00:00 AM EDT AT[place] ([facility]) Vern Montoya MD: [address], [place] [address], Ph. Attender: Vern CORTEZ - [facility] 09/17/2020 12:00:00 AM EDT [place] ([facility]) Vern Montoya MD: [address], [address], [place] [address], Ph. Attender: Vern CORTEZ - [facility] 09/17/2020 12:00:00 AM EDT [place] ([facility]) Vern Montoya MD: [address], [address], [place] [address], Ph. Attender: Vern CORTEZ - [facility] 09/17/2020 12:00:00 AM EDT [place] ([facility]) Vern Montoya MD: [address], [address], [place] [address], Ph. Attender: Vern CORTEZ - [facility] 09/17/2020 12:00:00 AM EDT [place] ([facility]) Vern Montoya MD: [address], [address], [place] [address], Ph. Attender: Vern CORTEZ - [facility] 09/17/2020 12:00:00 AM EDT [place] ([facility]) Vern Montoya MD: [address], [address], [place] [address], Ph. Attender: Vern CORTEZ - [facility] 09/17/2020 12:00:00 AM EDT [place] ([facility]) Vern Montoya MD: [address], [address], [place] [address], Ph. Attender: [place] [facility] 09/07/2020 12:00:00 AM EDT [place] ([facility]) Vern Montoya MD: [address], [address], [place] [address], Ph. Attender: [place] [facility] 09/07/2020 12:00:00 AM EDT [place] ([facility]) Vern Montoya MD: [address], [address], [place] [address], Ph. Attender: [place] [facility] 09/07/2020 12:00:00 AM EDT [place] ([facility]) Vern Montoya MD: [address], [address], [place] [address], Ph. Attender: [place] [facility] 09/07/2020 12:00:00 AM EDT [place] ([facility]) Vern Montoya MD: [address], [address], [place] [address], Ph. Attender: Vern CORTEZ - [facility] 09/07/2020 12:00:00 AM EDT [place] ([facility]) Vern Montoya MD: [address], [address], [place] [address], Ph. Attender: [place] MD [place] [facility] 09/07/2020 12:00:00 AM EDT [place] ([facility]) Vern Montoya MD: [address]64 [address], [address], [place] [address], Ph. Attender: [place] [facility] 09/07/2020 12:00:00 AM EDT [place] ([facility]) Vern Montoya MD: [address], [address], [place] [address], Ph. [phone] Attender: [place] - [facility] 09/03/2020 12:00:00 AM EDT [place] ([facility]) Vern Montoya MD: [address], [address], [place] [address], Ph. [phone] Attender: Vern CORTEZ - [facility] 09/03/2020 12:00:00 AM EDT [place] ([facility]) Vern Montoya MD: [address], [address], [place] [address], Ph. [phone] Attender: Vern CORTEZ - [facility] 09/03/2020 12:00:00 AM EDT [place] ([facility]) Venr Montoya MD: [address]698 [address], [address], [place] [address], Ph. [phone] Attender: Vern CORTEZ - [facility] 09/03/2020 12:00:00 AM EDT [place] ([facility]) Vern Montoya MD: [address], [address], [place] [address], Ph. [phone] Attender: [place] [facility] 09/03/2020 12:00:00 AM EDT [place] ([facility]) Vern Montoya MD: [address], [address], [place] [address], Ph. [phone] Attender: Vern CORTEZ - [facility] 09/03/2020 12:00:00 AM EDT [place] ([facility]) Vern Montoya MD: [address], [address], [place] [address], Ph. [phone] Attender: [place] [facility] 09/03/2020 12:00:00 AM EDT [place] ([facility]) Vern Montoya MD: [address], [address], [place] [address], Ph. [phone] Attender: Vern CORTEZ - [facility] 09/03/2020 12:00:00 AM EDT [place] ([facility]) Vern Montoya MD: [address]132 [address], [address], [place] [address], Ph. Attender: Vern CORTEZ - [facility] 08/28/2020 12:00:00 AM EDT [place] ([facility]) Vern Montoya MD: [address]08 [address], [address], [place] [address], Ph. Attender: Vern CORTEZ - [facility] 08/28/2020 12:00:00 AM EDT [place] ([facility]) Vern Montoya MD: [address]691 [address], [address], [place] [address], Ph. Attender: Vern CORTEZ - [facility] 08/28/2020 12:00:00 AM EDT [place] ([facility]) Vern Montoya MD: [address]304 [address], [address], [place] [address], Ph. Attender: Vern CORTEZ - [facility] 08/28/2020 12:00:00 AM EDT [place] ([facility]) Vern Montoya MD: [address]172 [address], [address], [place] [address], Ph. Attender: [place] [facility] 08/28/2020 12:00:00 AM EDT [place] ([facility]) Vern Montoya MD: [address]12 [address], [address], [place] [address], Ph. Attender: [place] [facility] 08/28/2020 12:00:00 AM EDT [place] ([facility]) Vern Montoya MD: [address]005 [address], [address], [place] [address], Ph. Attender: Vern CORTEZ - [facility] 08/28/2020 12:00:00 AM EDT [place] ([facility]) Vern Montoya MD: [address]204 [address], [address], [place] [address], Ph. Attender: Vern CORTEZ - [facility] 08/28/2020 12:00:00 AM EDT [place] ([facility]) Vern Montoya MD: [address]79 [address], [address], [place] [address], Ph. Attender: [place] - [facility] 08/28/2020 12:00:00 AM EDT [place] ([facility]) [facility]: [address], [place] [address], Ph. Attender: Petra Himanshu [facility] Medical 08/13/2020 12:00:00 AM EDT [place] ([facility]) Petra Downs [facility]: [address], [place] [address], Ph. Attender: Petra Downs [facility] Medical 08/13/2020 12:00:00 AM EDT [place] ([facility]) Petra Downs [facility]: [address], [place] [address], Ph. Attender: Petra Downs [facility] Medical 08/13/2020 12:00:00 AM EDT [place] ([facility]) Petra Downs [facility]: [address], [place] [address], Ph. Attender: Petra Downs [facility] Medical 08/13/2020 12:00:00 AM EDT [place] ([facility]) Petra Downs [facility]: [address], [place] [address], Ph. Attender: Petra Downs [facility] Medical 08/13/2020 12:00:00 AM EDT [place] ([facility]) Petra Downs [facility]: [address], [place] [address], Ph. Attender: Petra Downs [facility] Medical 08/13/2020 12:00:00 AM EDT [place] ([facility]) Petra Downs [facility]: [address], [place] [address], Ph. Attender: Petra Downs [facility] 08/08/2020 12:00:00 AM EDT [place] ([facility]) Petra Downs [facility]: [address], [place] [address], Ph. Attender: Petra Downs [facility] Medical 08/08/2020 12:00:00 AM EDT [place] ([facility]) Petra Downs [facility]: [address], [place] [address], Ph. Attender: Petra Downs [facility] Medical 08/08/2020 12:00:00 AM EDT [place] ([facility]) Petra Downs [facility]: [address], [place] [address], Ph. Attender: Petra Downs [facility] Medical 08/08/2020 12:00:00 AM EDT [place] ([facility]) Petra Downs [facility]: [address], [place] [address], Ph. Attender: Petra Downs [facility] Medical 08/08/2020 12:00:00 AM EDT [place] ([facility]) Petra Downs [facility]: [address], [place] [address], Ph. Attender: Petra Downs [facility] Medical 08/08/2020 12:00:00 AM EDT [place] ([facility]) Petra Downs [facility]: [address], [place] [address], Ph. Attender: [facility] 08/08/2020 12:00:00 AM EDT [place] ([facility]) Skinny Clemons MD: [address] [place] [address], Ph. Attender: Skinny Clemons MD [facility] Medical 07/31/2020 12:00:00 AM EDT [place] ([facility]) Skinny Clemons MD: [address] [place] [address], Ph. Attender: Skinny Clemons MD [facility] Medical 07/31/2020 12:00:00 AM EDT [place] ([facility]) Skinny Clemons MD: [address] [place] [address], Ph. Attender: Skinny Clemons MD [facility] Medical 07/31/2020 12:00:00 AM EDT [place] ([facility]) Skinny Clemons MD: [address] [place] [address], Ph. Attender: Skinny Clemons MD [facility] Medical 07/31/2020 12:00:00 AM EDT [place] ([facility]) Skinny Clemons MD: [address] [place] [address], Ph. Attender: Skinny Clemons MD [facility] Medical 07/31/2020 12:00:00 AM EDT [place] ([facility]) Skinny Clemons MD: [address] [place] [address], Ph. Attender: Skinny Clemons MD [facility] Medical 07/31/2020 12:00:00 AM EDT [place] ([facility]) Skinny Clemons MD: [address] [place] [address], Ph. Attender: Skinny Clemons MD [facility] Medical 07/31/2020 12:00:00 AM EDT [place] ([facility]) Skinny Clemons MD: [address], [place] [address], Ph. Attender: Skinny Clemons MD [facility] Medical 07/31/2020 12:00:00 AM EDT [place] ([facility]) Outpatient Attender: KETURAH Downs [facility] 02/20/2020 03:46:01 P M EDT [facility] Petrara Downs [facility]: [address], [place] [address], Ph. Attender: Petra Downs [facility] 02/20/2020 12:00:00 AM EDT [place] ([facility]) Petra Downs [facility]: [address], [place] [address], Ph. Attender: Petra Downs [facility] 02/20/2020 12:00:00 AM EDT [place] ([facility]) Petra Downs [facility]: [address], [place] [address], Ph. Attender: Petra Downs [facility] Medical 02/20/2020 12:00:00 AM EDT [place] ([facility]) Petra Downs [facility]: [address], [place] [address], Ph. Attender: Petra Downs [facility] Medical 02/20/2020 12:00:00 AM EDT [place] ([facility]) Petra Downs [facility]: [address], [place] [address], Ph. Attender: Petra Downs [facility] Medical 02/20/2020 12:00:00 AM EDT [place] ([facility]) Petra Downs [facility]: [address], [place] [address], Ph. Attender: Petra Downs [facility] Medical 02/20/2020 12:00:00 AM EDT [place] ([facility]) Petra Downs [facility]: [address], [place] [address], Ph. Attender: Petra Downs [facility] Medical 02/20/2020 12:00:00 AM EDT [place] ([facility]) [facility]: [address], [place] [address], Ph. Attender: Petra Downs [facility] Medical 02/20/2020 12:00:00 AM EDT [place] ([facility]) Petra Downs [facility]: [address], [place] [address], Ph. Attender: Petra Downs [facility] Medical 02/20/2020 12:00:00 AM EDT [place] ([facility]) Outpatient [facility]: [facility] 02/13/2020 09:1 4:02 PM EDT [facility] Outpatient Attender: KETURAH REBOLLAR 02/13/2020 09:14:02 P M EDT [facility] Outpatient Att[facility]: [facility] 02/13/2020 08:1 7:02 PM EDT [facility] Outpatient Att[facility]: [facility] 02/13/2020 09:49:00 A M EDT [facility] Outpatient Att[facility] 02/11/2020 10:4 6:00 PM EDT [facility] Immunizations Vaccine Date Status Description Data Source(s) pneumococcal polysaccharide PPV23 02/25/2021 03:28:00 PM EDT com pleted .5 mL [facility] ([facility]) New in 2011. IIV4 02/25/2021 03:27:00 PM EDT completed .5 mL [facility] ([facility]) New in 2011. IIV4 02/23/2020 03:15:00 PM EDT completed 0.5 mL [facility] ([facility]) New in 2011. IIV4 02/23/2020 03:15:00 PM EDT completed 0.5 mL [facility] ([facility]) New in 2011. IIV4 02/23/2020 03:15:00 PM EDT completed 0.5 mL [facility] ([facility]) New in 2011. IIV4 02/23/2020 03:15:00 PM EDT completed 0.5 mL [facility] ([facility]) New in 2011. IIV4 02/23/2020 03:15:00 PM EDT completed 0.5 mL [facility] ([facility]) New in 2011. IIV4 02/23/2020 03:15:00 PM EDT completed 0.5 mL [facility] ([facility]) New in 2011. IIV4 02/23/2020 03:15:00 PM EDT completed 0.5 mL CARLEEN ([facility]) New in 2011. IIV4 02/23/2020 03:15:00 PM EDT completed 0.5 mL CARLEEN ([facility]) Medications Medication Brand Name Start Date Product Form Dose Route Admi nistrative Instructions Pharmacy Instructions Status Indications Reaction Description Data Source(s) Prednisone 20 MG Oral Tablet Prednisone 02/22/2021 12:00:00 AM EDT active [facility] ([facility]) Ondansetron 4 MG Disintegrating Oral Tablet Ondansetron 02/22/2021 12:00:00 AM EDT active [facility] ([facility]) Albuterol 0.83 MG/ML Inhalant Solution Albuterol Sulfate 1 12:00:00 AM EDT active [facility] ([facility]) Decadron(Per 1MG)Dexamethasone Sodium Phosphate Injection 02/22/2021 12:00:00 AM EDT completed [facility] ([facility]) Medication administered onsite Doxycycline Monohydrate 100 MG Oral Capsule Doxycycline Thayer hydrate 02/22/2021 12:00:00 AM EDT ORAL active M EDENT ([facility]) Cefuroxime 500 MG Oral Tablet Cefuroxime Axetil 06/20/2020 12:00:00 A M EST ORAL active MEDENT ([facility], ) Prednisone 10 MG Oral Tablet Prednisone 06/20/2020 12:00:00 AM EST ORAL active MEDENT ([facility], ) Prednisone 10 MG Oral Tablet prednisone 10 mg tablet TAKE 4 TABLETS BY MOUTH ONCE DAILY FOR FOUR DAYS THEN TAKE THREE TABLETS BY MOUTH ONCE DAILY FOR FOUR DAYS THEN TAKE TWO TABLETS BY MOUTH ON prednisone 10 mg tablet TAKE 4 TABLETS B Y MOUTH ONCE DAILY FOR FOUR DAYS THEN TAKE THREE TABLETS BY MOUTH ONCE DAILY FOR FOUR DAYS THEN TAKE TWO TABLETS BY MOUTH ON completed prednisone 10 MG Oral Tablet [facility] ([facility]) Amoxicillin 500 MG Oral Capsule amoxicillin 500 mg cap rené amoxicillin 500 mg capsule completed amoxicillin 50 0 MG Oral Capsule [facility] ([facility]) Prednisone 10 MG Oral Tablet prednisone 10 mg tablet TAKE 4 TABLETS BY MOUTH ONCE DAILY FOR FOUR DAYS THEN TAKE THREE TABLETS BY MOUTH ONCE DAILY FOR FOUR DAYS THEN TAKE TWO TABLETS BY MOUTH ON prednisone 10 mg tablet TAKE 4 TABLETS B Y MOUTH ONCE DAILY FOR FOUR DAYS THEN TAKE THREE TABLETS BY MOUTH ONCE DAILY FOR FOUR DAYS THEN TAKE TWO TABLETS BY MOUTH ON completed prednisone 10 MG Oral Tablet [facility] ([facility]) gabapentin 300 MG Oral Capsule gabapenti n 300 mg capsule TAKE ONE CAPSULE BY MOUTH TWICE DAILY gabapentin 300 mg capsule TAKE ONE CAPSU LE BY MOUTH TWICE DAILY completed gabapentin 300 M G Oral Capsule [place] ([facility]) gabapentin 300 MG Oral Capsule gabapenti n 300 mg capsule TAKE ONE CAPSULE BY MOUTH TWICE DAILY gabapentin 300 mg capsule TAKE ONE CAPSU LE BY MOUTH TWICE DAILY completed gabapentin 300 M G Oral Capsule [place] ([facility]) gabapentin 300 MG Oral Capsule gabapenti n 300 mg capsule TAKE ONE CAPSULE BY MOUTH TWICE DAILY gabapentin 300 mg capsule TAKE ONE CAPSU LE BY MOUTH TWICE DAILY completed gabapentin 300 M G Oral Capsule [place] ([facility]) gabapentin 300 MG Oral Capsule gabapentin 300 mg capsu le gabapentin 300 mg capsule completed gabapentin 300 MG Oral Capsule [place] ([facility]) Prednisone 10 MG Oral Tablet prednisone 10 mg tablet TAKE 4 TABLETS BY MOUTH ONCE DAILY FOR FOUR DAYS THEN TAKE THREE TABLETS BY MOUTH ONCE DAILY FOR FOUR DAYS THEN TAKE TWO TABLETS BY MOUTH ON prednisone 10 mg tablet TAKE 4 TABLETS B Y MOUTH ONCE DAILY FOR FOUR DAYS THEN TAKE THREE TABLETS BY MOUTH ONCE DAILY FOR FOUR DAYS THEN TAKE TWO TABLETS BY MOUTH ON completed prednisone 10 MG Oral Tablet [facility] ([facility]) Prednisone 10 MG Oral Tablet prednisone 10 mg tablet TAKE 4 TABLETS BY MOUTH ONCE DAILY FOR FOUR DAYS THEN TAKE THREE TABLETS BY MOUTH ONCE DAILY FOR FOUR DAYS THEN TAKE TWO TABLETS BY MOUTH ON prednisone 10 mg tablet TAKE 4 TABLETS B Y MOUTH ONCE DAILY FOR FOUR DAYS THEN TAKE THREE TABLETS BY MOUTH ONCE DAILY FOR FOUR DAYS THEN TAKE TWO TABLETS BY MOUTH ON completed prednisone 10 MG Oral Tablet [facility] ([facility]) Ibuprofen 600 MG Oral Tablet ibuprofen 600 mg tablet ibuprofen 6 00 mg tablet completed ibuprofen 600 MG Oral Tablet [place] ([facility]) gabapentin 100 MG Oral Capsule gabapenti n 100 mg capsule TAKE ONE CAPSULE BY MOUTH TWICE DAILY gabapentin 100 mg capsule TAKE ONE CAPSU LE BY MOUTH TWICE DAILY completed gabapentin 100 M G Oral Capsule [facility] ([facility]) Prednisone 10 MG Oral Tablet prednisone 10 mg tablet TAKE 4 TABLETS BY MOUTH ONCE DAILY FOR FOUR DAYS THEN TAKE THREE TABLETS BY MOUTH ONCE DAILY FOR FOUR DAYS THEN TAKE TWO TABLETS BY MOUTH ON prednisone 10 mg tablet TAKE 4 TABLETS B Y MOUTH ONCE DAILY FOR FOUR DAYS THEN TAKE THREE TABLETS BY MOUTH ONCE DAILY FOR FOUR DAYS THEN TAKE TWO TABLETS BY MOUTH ON completed prednisone 10 MG Oral Tablet [facility] ([facility]) Prednisone 10 MG Oral Tablet prednisone 10 mg tablet TAKE 4 TABLETS BY MOUTH ONCE DAILY FOR FOUR DAYS THEN TAKE THREE TABLETS BY MOUTH ONCE DAILY FOR FOUR DAYS THEN TAKE TWO TABLETS BY MOUTH ON prednisone 10 mg tablet TAKE 4 TABLETS B Y MOUTH ONCE DAILY FOR FOUR DAYS THEN TAKE THREE TABLETS BY MOUTH ONCE DAILY FOR FOUR DAYS THEN TAKE TWO TABLETS BY MOUTH ON completed prednisone 10 MG Oral Tablet [facility] ([facility]) gabapentin 100 MG Oral Capsule gabapentin 100 mg capsu le gabapentin 100 mg capsule completed gabapentin 100 MG Oral Capsule [facility] ([facility]) Cyclobenzaprine hydrochloride 10 MG Oral Tablet cyclobenzaprine 10 mg tablet TAKE ONE TABLET BY MOUTH THREE TIMES DAILY NEEDED FOR MUSCLE SPASMS cyclobenzaprine 10 mg tablet TAKE ONE TABLET BY MOUTH THREE TIMES DAILY NEEDED FOR MUSCLE SPASMS completed cyclobenzaprine hydrochloride 10 MG Oral Tablet [facility] ([facility]) Cefuroxime 500 MG Oral Tablet cefuroxime axetil 500 mg tablet cefuroxime axetil 500 mg tablet completed cefuroxi me 500 MG Oral Tablet [facility] ([facility]) Cyclobenzaprine hydrochloride 10 MG Oral Tablet cyclobenzaprine 10 mg tablet TAKE ONE TABLET BY MOUTH THREE TIMES DAILY NEEDED FOR MUSCLE SPASMS cyclobenzaprine 10 mg tablet TAKE ONE TABLET BY MOUTH THREE TIMES DAILY NEEDED FOR MUSCLE SPASMS completed cyclobenzaprine hydrochloride 10 MG Oral Tablet [facility] ([facility]) tizanidine 4 MG Oral Tablet tizanidine 4 mg tablet TAKE ONE TABLET BY MOUTH THREE TIMES DAILY NEEDED tizanidine 4 mg tablet TAKE ONE TABLET B Y MOUTH THREE TIMES DAILY NEEDED completed tizanidine 4 MG Oral Tablet [facility] ([facility]) gabapentin 300 MG Oral Capsule gabapentin 300 mg capsu le gabapentin 300 mg capsule completed gabapentin 300 MG Oral Capsule [facility] ([facility]) Doxycycline Monohydrate 100 MG Oral Caps ule doxycycline monohydrate 100 mg capsule TAKE ONE CAPSULE BY MOUTH TWICE DAILY FOR 10 DAYS doxycycline monohydrate 100 mg capsule TAKE ONE CAPSULE BY MOUTH TWICE DAILY FOR 10 DAYS completed doxycycline mo nohydrate 100 MG Oral Capsule [facility] ([facility]) gabapentin 300 MG Oral Capsule gabapenti n 300 mg capsule TAKE ONE CAPSULE BY MOUTH TWICE DAILY gabapentin 300 mg capsule TAKE ONE CAPSU LE BY MOUTH TWICE DAILY completed gabapentin 300 M G Oral Capsule [facility] ([facility]) Ibuprofen 600 MG Oral Tablet ibuprofen 6 00 mg tablet TAKE ONE TABLET BY MOUTH EVERY SIX HOURS NEEDED FOR PAIN ibuprofen 600 mg tablet TAKE ONE TABLET BY MOUTH EVERY SIX HOURS NEEDED FOR PAIN completed ibuprofen 600 MG Oral Tablet [facility] ([facility]) Prednisone 10 MG Oral Tablet prednisone 10 mg tablet TAKE 4 TABLETS BY MOUTH ONCE DAILY FOR FOUR DAYS THEN TAKE THREE TABLETS BY MOUTH ONCE DAILY FOR FOUR DAYS THEN TAKE TWO TABLETS BY MOUTH ON prednisone 10 mg tablet TAKE 4 TABLETS B Y MOUTH ONCE DAILY FOR FOUR DAYS THEN TAKE THREE TABLETS BY MOUTH ONCE DAILY FOR FOUR DAYS THEN TAKE TWO TABLETS BY MOUTH ON completed prednisone 10 MG Oral Tablet [facility] ([facility]) Cefuroxime 500 MG Oral Tablet cefuroxime axetil 500 mg tablet TAKE ONE TABLET BY MOUTH TWICE DAILY cefuroxime axetil 500 mg tablet TAKE ONE TABLET BY MOUTH TWICE DAILY completed cefuroxime 500 M G Oral Tablet [facility] ([facility]) gabapentin 100 MG Oral Capsule gabapenti n 100 mg capsule TAKE ONE CAPSULE BY MOUTH TWICE DAILY gabapentin 100 mg capsule TAKE ONE CAPSU LE BY MOUTH TWICE DAILY completed gabapentin 100 M G Oral Capsule [facility] ([facility]) Prednisone 10 MG Oral Tablet prednisone 10 mg tablet TAKE 4 TABLETS BY MOUTH ONCE DAILY FOR FOUR DAYS THEN TAKE THREE TABLETS BY MOUTH ONCE DAILY FOR FOUR DAYS THEN TAKE TWO TABLETS BY MOUTH ON prednisone 10 mg tablet TAKE 4 TABLETS B Y MOUTH ONCE DAILY FOR FOUR DAYS THEN TAKE THREE TABLETS BY MOUTH ONCE DAILY FOR FOUR DAYS THEN TAKE TWO TABLETS BY MOUTH ON completed prednisone 10 MG Oral Tablet [facility] ([facility]) gabapentin 300 MG Oral Capsule gabapenti n 300 mg capsule TAKE ONE CAPSULE BY MOUTH TWICE DAILY gabapentin 300 mg capsule TAKE ONE CAPSU LE BY MOUTH TWICE DAILY completed gabapentin 300 M G Oral Capsule [facility] ([facility]) Cefuroxime 500 MG Oral Tablet cefuroxime axetil 500 mg tablet TAKE ONE TABLET BY MOUTH TWICE DAILY cefuroxime axetil 500 mg tablet TAKE ONE TABLET BY MOUTH TWICE DAILY completed cefuroxime 500 M G Oral Tablet [facility] ([facility]) gabapentin 300 MG Oral Capsule gabapentin 300 mg capsu le gabapentin 300 mg capsule completed gabapentin 300 MG Oral Capsule [facility] ([facility]) Cyclobenzaprine hydrochloride 10 MG Oral Tablet cyclobenzaprine 10 mg tablet TAKE ONE TABLET BY MOUTH THREE TIMES DAILY NEEDED FOR MUSCLE SPASMS cyclobenzaprine 10 mg tablet TAKE ONE TABLET BY MOUTH THREE TIMES DAILY NEEDED FOR MUSCLE SPASMS completed cyclobenzaprine hydrochloride 10 MG Oral Tablet [facility] ([facility]) gabapentin 300 MG Oral Capsule gabapenti n 300 mg capsule TAKE ONE CAPSULE BY MOUTH TWICE DAILY gabapentin 300 mg capsule TAKE ONE CAPSU LE BY MOUTH TWICE DAILY completed gabapentin 300 M G Oral Capsule [facility] ([facility]) Prednisone 10 MG Oral Tablet prednisone 10 mg tablet TAKE 4 TABLETS BY MOUTH ONCE DAILY FOR FOUR DAYS THEN TAKE THREE TABLETS BY MOUTH ONCE DAILY FOR FOUR DAYS THEN TAKE TWO TABLETS BY MOUTH ON prednisone 10 mg tablet TAKE 4 TABLETS B Y MOUTH ONCE DAILY FOR FOUR DAYS THEN TAKE THREE TABLETS BY MOUTH ONCE DAILY FOR FOUR DAYS THEN TAKE TWO TABLETS BY MOUTH ON completed prednisone 10 MG Oral Tablet [facility] ([facility]) Ondansetron 4 MG Disintegrating Oral Tab let ondansetron 4 mg disintegrating tablet DISSOLVE ONE TABLET BY MOUTH EVERY 8 HOURS NEEDED FOR NAUSEA ondansetron 4 mg disintegrating tablet DISSOLVE ONE TABLET BY MOUTH EVERY 8 HOURS NEEDED FOR NAUSEA completed ondansetron 4 MG Disintegrating Oral Tablet [facility] ([facility]) gabapentin 100 MG Oral Capsule gabapenti n 100 mg capsule TAKE ONE CAPSULE BY MOUTH TWICE DAILY gabapentin 100 mg capsule TAKE ONE CAPSU LE BY MOUTH TWICE DAILY completed gabapentin 100 M G Oral Capsule [facility] ([facility]) Prednisone 10 MG Oral Tablet prednisone 10 mg tablet TAKE 4 TABLETS BY MOUTH ONCE DAILY FOR FOUR DAYS THEN TAKE THREE TABLETS BY MOUTH ONCE DAILY FOR FOUR DAYS THEN TAKE TWO TABLETS BY MOUTH ON prednisone 10 mg tablet TAKE 4 TABLETS B Y MOUTH ONCE DAILY FOR FOUR DAYS THEN TAKE THREE TABLETS BY MOUTH ONCE DAILY FOR FOUR DAYS THEN TAKE TWO TABLETS BY MOUTH ON completed prednisone 10 MG Oral Tablet [facility] ([facility]) Ibuprofen 600 MG Oral Tablet ibuprofen 6 00 mg tablet TAKE ONE TABLET BY MOUTH EVERY SIX HOURS NEEDED FOR PAIN ibuprofen 600 mg tablet TAKE ONE TABLET BY MOUTH EVERY SIX HOURS NEEDED FOR PAIN completed ibuprofen 600 MG Oral Tablet [facility] ([facility]) gabapentin 100 MG Oral Capsule gabapenti n 100 mg capsule TAKE ONE CAPSULE BY MOUTH TWICE DAILY gabapentin 100 mg capsule TAKE ONE CAPSU LE BY MOUTH TWICE DAILY completed gabapentin 100 M G Oral Capsule [facility] ([facility]) Ibuprofen 600 MG Oral Tablet ibuprofen 6 00 mg tablet TAKE ONE TABLET BY MOUTH EVERY SIX HOURS NEEDED FOR PAIN ibuprofen 600 mg tablet TAKE ONE TABLET BY MOUTH EVERY SIX HOURS NEEDED FOR PAIN completed ibuprofen 600 MG Oral Tablet [facility] ([facility]) Amoxicillin 500 MG Oral Capsule amoxicillin 500 mg cap rené amoxicillin 500 mg capsule completed amoxicillin 50 0 MG Oral Capsule [facility] ([facility]) atorvastatin 20 MG Oral Tablet atorvasta tin 20 mg tablet TAKE ONE TABLET BY MOUTH ONCE DAILY atorvastatin 20 mg tablet TAKE ONE TABLET BY MOUTH ONC E DAILY completed atorvastatin 2 0 MG Oral Tablet [facility] ([facility]) Prednisone 10 MG Oral Tablet prednisone 10 mg tablet TAKE 4 TABLETS BY MOUTH ONCE DAILY FOR FOUR DAYS THEN TAKE THREE TABLETS BY MOUTH ONCE DAILY FOR FOUR DAYS THEN TAKE TWO TABLETS BY MOUTH ON prednisone 10 mg tablet TAKE 4 TABLETS B Y MOUTH ONCE DAILY FOR FOUR DAYS THEN TAKE THREE TABLETS BY MOUTH ONCE DAILY FOR FOUR DAYS THEN TAKE TWO TABLETS BY MOUTH ON completed prednisone 10 MG Oral Tablet [facility] ([facility]) Cefuroxime 500 MG Oral Tablet cefuroxime axetil 500 mg tablet TAKE ONE TABLET BY MOUTH TWICE DAILY cefuroxime axetil 500 mg tablet TAKE ONE TABLET BY MOUTH TWICE DAILY completed cefuroxime 500 M G Oral Tablet [facility] ([facility]) gabapentin 300 MG Oral Capsule gabapenti n 300 mg capsule TAKE ONE CAPSULE BY MOUTH TWICE DAILY gabapentin 300 mg capsule TAKE ONE CAPSU LE BY MOUTH TWICE DAILY completed gabapentin 300 M G Oral Capsule [facility] ([facility]) Cefuroxime 500 MG Oral Tablet cefuroxime axetil 500 mg tablet TAKE ONE TABLET BY MOUTH TWICE DAILY cefuroxime axetil 500 mg tablet TAKE ONE TABLET BY MOUTH TWICE DAILY completed cefuroxime 500 M G Oral Tablet [facility] ([facility]) Amoxicillin 500 MG Oral Capsule amoxicillin 500 mg cap rené amoxicillin 500 mg capsule completed amoxicillin 50 0 MG Oral Capsule [facility] ([facility]) gabapentin 100 MG Oral Capsule gabapenti n 100 mg capsule TAKE ONE CAPSULE BY MOUTH TWICE DAILY gabapentin 100 mg capsule TAKE ONE CAPSU LE BY MOUTH TWICE DAILY completed gabapentin 100 M G Oral Capsule [facility] ([facility]) gabapentin 300 MG Oral Capsule gabapentin 300 mg capsu le gabapentin 300 mg capsule completed gabapentin 300 MG Oral Capsule [facility] ([facility]) Cefuroxime 500 MG Oral Tablet cefuroxime axetil 500 mg tablet TAKE ONE TABLET BY MOUTH TWICE DAILY cefuroxime axetil 500 mg tablet TAKE ONE TABLET BY MOUTH TWICE DAILY completed cefuroxime 500 M G Oral Tablet [facility] ([facility]) Ibuprofen 600 MG Oral Tablet ibuprofen 6 00 mg tablet TAKE ONE TABLET BY MOUTH EVERY SIX HOURS NEEDED FOR PAIN ibuprofen 600 mg tablet TAKE ONE TABLET BY MOUTH EVERY SIX HOURS NEEDED FOR PAIN completed ibuprofen 600 MG Oral Tablet [facility] ([facility]) Amoxicillin 500 MG Oral Capsule amoxicillin 500 mg cap rené amoxicillin 500 mg capsule completed amoxicillin 50 0 MG Oral Capsule [facility] ([facility]) Prednisone 10 MG Oral Tablet prednisone 10 mg tablet TAKE 4 TABLETS BY MOUTH ONCE DAILY FOR FOUR DAYS THEN TAKE THREE TABLETS BY MOUTH ONCE DAILY FOR FOUR DAYS THEN TAKE TWO TABLETS BY MOUTH ON prednisone 10 mg tablet TAKE 4 TABLETS B Y MOUTH ONCE DAILY FOR FOUR DAYS THEN TAKE THREE TABLETS BY MOUTH ONCE DAILY FOR FOUR DAYS THEN TAKE TWO TABLETS BY MOUTH ON completed prednisone 10 MG Oral Tablet [facility] ([facility]) Amoxicillin 500 MG Oral Capsule amoxicillin 500 mg cap rené amoxicillin 500 mg capsule completed amoxicillin 50 0 MG Oral Capsule [facility] ([facility]) Prednisone 10 MG Oral Tablet prednisone 10 mg tablet TAKE 4 TABLETS BY MOUTH ONCE DAILY FOR FOUR DAYS THEN TAKE THREE TABLETS BY MOUTH ONCE DAILY FOR FOUR DAYS THEN TAKE TWO TABLETS BY MOUTH ON prednisone 10 mg tablet TAKE 4 TABLETS B Y MOUTH ONCE DAILY FOR FOUR DAYS THEN TAKE THREE TABLETS BY MOUTH ONCE DAILY FOR FOUR DAYS THEN TAKE TWO TABLETS BY MOUTH ON completed prednisone 10 MG Oral Tablet [facility] ([facility]) gabapentin 100 MG Oral Capsule gabapenti n 100 mg capsule TAKE ONE CAPSULE BY MOUTH TWICE DAILY gabapentin 100 mg capsule TAKE ONE CAPSU LE BY MOUTH TWICE DAILY completed gabapentin 100 M G Oral Capsule [place] ([facility]) Cefuroxime 500 MG Oral Tablet cefuroxime axetil 500 mg tablet TAKE ONE TABLET BY MOUTH TWICE DAILY cefuroxime axetil 500 mg tablet TAKE ONE TABLET BY MOUTH TWICE DAILY completed cefuroxime 500 M G Oral Tablet [facility] ([facility]) Cyclobenzaprine hydrochloride 10 MG Oral Tablet cyclobenzaprine 10 mg tablet TAKE ONE TABLET BY MOUTH THREE TIMES DAILY NEEDED FOR MUSCLE SPASMS cyclobenzaprine 10 mg tablet TAKE ONE TABLET BY MOUTH THREE TIMES DAILY NEEDED FOR MUSCLE SPASMS completed cyclobenzaprine hydrochloride 10 MG Oral Tablet [facility] ([facility]) Cyclobenzaprine hydrochloride 10 MG Oral Tablet cyclobenzaprine 10 mg tablet TAKE ONE TABLET BY MOUTH THREE TIMES DAILY NEEDED FOR MUSCLE SPASMS cyclobenzaprine 10 mg tablet TAKE ONE TABLET BY MOUTH THREE TIMES DAILY NEEDED FOR MUSCLE SPASMS completed cyclobenzaprine hydrochloride 10 MG Oral Tablet [facility] ([facility]) gabapentin 100 MG Oral Capsule gabapentin 100 mg capsu le gabapentin 100 mg capsule completed gabapentin 100 MG Oral Capsule [facility] ([facility]) gabapentin 300 MG Oral Capsule gabapenti n 300 mg capsule TAKE ONE CAPSULE BY MOUTH TWICE DAILY gabapentin 300 mg capsule TAKE ONE CAPSU LE BY MOUTH TWICE DAILY completed gabapentin 300 M G Oral Capsule [facility] ([facility]) Amoxicillin 500 MG Oral Capsule amoxicillin 500 mg cap rené amoxicillin 500 mg capsule completed amoxicillin 50 0 MG Oral Capsule [place] ([facility]) Cefuroxime 500 MG Oral Tablet cefuroxime axetil 500 mg tablet TAKE ONE TABLET BY MOUTH TWICE DAILY cefuroxime axetil 500 mg tablet TAKE ONE TABLET BY MOUTH TWICE DAILY completed cefuroxime 500 M G Oral Tablet [facility] ([facility]) Prednisone 10 MG Oral Tablet prednisone 10 mg tablet TAKE 4 TABLETS BY MOUTH ONCE DAILY FOR FOUR DAYS THEN TAKE THREE TABLETS BY MOUTH ONCE DAILY FOR FOUR DAYS THEN TAKE TWO TABLETS BY MOUTH ON prednisone 10 mg tablet TAKE 4 TABLETS B Y MOUTH ONCE DAILY FOR FOUR DAYS THEN TAKE THREE TABLETS BY MOUTH ONCE DAILY FOR FOUR DAYS THEN TAKE TWO TABLETS BY MOUTH ON completed prednisone 10 MG Oral Tablet [facility] ([facility]) Baclofen 10 MG Oral Tablet baclofen 10 m g tablet TAKE ONE TABLET BY MOUTH TWICE DAILY NEEDED baclofen 10 mg tablet TAKE ONE TABLET BY MOUTH TWICE DAILY NEEDED completed baclofen 10 MG Oral Tablet [place] ([facility]) Cefuroxime 500 MG Oral Tablet cefuroxime axetil 500 mg tablet TAKE ONE TABLET BY MOUTH TWICE DAILY cefuroxime axetil 500 mg tablet TAKE ONE TABLET BY MOUTH TWICE DAILY completed cefuroxime 500 M G Oral Tablet [place] ([facility]) Ibuprofen 600 MG Oral Tablet ibuprofen 6 00 mg tablet TAKE ONE TABLET BY MOUTH EVERY SIX HOURS NEEDED FOR PAIN ibuprofen 600 mg tablet TAKE ONE TABLET BY MOUTH EVERY SIX HOURS NEEDED FOR PAIN completed ibuprofen 600 MG Oral Tablet [facility] ([facility]) gabapentin 100 MG Oral Capsule gabapenti n 100 mg capsule TAKE ONE CAPSULE BY MOUTH TWICE DAILY gabapentin 100 mg capsule TAKE ONE CAPSU LE BY MOUTH TWICE DAILY completed gabapentin 100 M G Oral Capsule [facility] ([facility]) Prednisone 10 MG Oral Tablet prednisone 10 mg tablet TAKE 4 TABLETS BY MOUTH ONCE DAILY FOR FOUR DAYS THEN TAKE THREE TABLETS BY MOUTH ONCE DAILY FOR FOUR DAYS THEN TAKE TWO TABLETS BY MOUTH ON prednisone 10 mg tablet TAKE 4 TABLETS B Y MOUTH ONCE DAILY FOR FOUR DAYS THEN TAKE THREE TABLETS BY MOUTH ONCE DAILY FOR FOUR DAYS THEN TAKE TWO TABLETS BY MOUTH ON completed prednisone 10 MG Oral Tablet [facility] ([facility]) gabapentin 100 MG Oral Capsule gabapentin 100 mg capsu le gabapentin 100 mg capsule completed gabapentin 100 MG Oral Capsule [facility]) Cefuroxime 500 MG Oral Tablet cefuroxime axetil 500 mg tablet TAKE ONE TABLET BY MOUTH TWICE DAILY cefuroxime axetil 500 mg tablet TAKE ONE TABLET BY MOUTH TWICE DAILY completed cefuroxime 500 M G Oral Tablet [facility] ([facility]) Amoxicillin 500 MG Oral Capsule amoxicillin 500 mg cap rené amoxicillin 500 mg capsule completed amoxicillin 50 0 MG Oral Capsule [place] ([facility]) gabapentin 100 MG Oral Capsule gabapenti n 100 mg capsule TAKE ONE CAPSULE BY MOUTH TWICE DAILY gabapentin 100 mg capsule TAKE ONE CAPSU LE BY MOUTH TWICE DAILY completed gabapentin 100 M G Oral Capsule [place] ([facility]) Cholecalciferol 04150 UNT Oral Capsule c holecalciferol (vitamin D3) 1,250 mcg (50,000 unit) capsule cholecalciferol (vitamin D3) 1,250 mcg ( 50,000 unit) capsule completed cholecalcifero l 1.25 MG Oral Capsule [facility]) gabapentin 300 MG Oral Capsule gabapenti n 300 mg capsule TAKE ONE CAPSULE BY MOUTH TWICE DAILY gabapentin 300 mg capsule TAKE ONE CAPSU LE BY MOUTH TWICE DAILY completed gabapentin 300 M G Oral Capsule [facility] ([facility]) Amoxicillin 500 MG Oral Capsule amoxicillin 500 mg cap rené amoxicillin 500 mg capsule completed amoxicillin 50 0 MG Oral Capsule [facility]) Cyclobenzaprine hydrochloride 10 MG Oral Tablet cyclob enzaprine 10 mg tablet cyclobenzaprine 10 mg tablet completed cyclobenzaprine hydrochloride 10 MG Oral Tablet [facility]) Cefuroxime 500 MG Oral Tablet cefuroxime axetil 500 mg tablet TAKE ONE TABLET BY MOUTH TWICE DAILY cefuroxime axetil 500 mg tablet TAKE ONE TABLET BY MOUTH TWICE DAILY completed cefuroxime 500 M G Oral Tablet [facility]) Amoxicillin 500 MG Oral Capsule amoxicillin 500 mg cap rené amoxicillin 500 mg capsule completed amoxicillin 50 0 MG Oral Capsule [facility]) Cefuroxime 500 MG Oral Tablet cefuroxime axetil 500 mg tablet TAKE ONE TABLET BY MOUTH TWICE DAILY cefuroxime axetil 500 mg tablet TAKE ONE TABLET BY MOUTH TWICE DAILY completed cefuroxime 500 M G Oral Tablet [place] ([facility]) Cefuroxime 500 MG Oral Tablet cefuroxime axetil 500 mg tablet TAKE ONE TABLET BY MOUTH TWICE DAILY cefuroxime axetil 500 mg tablet TAKE ONE TABLET BY MOUTH TWICE DAILY completed cefuroxime 500 M G Oral Tablet [facility] ([facility]) Cefuroxime 500 MG Oral Tablet cefuroxime axetil 500 mg tablet TAKE ONE TABLET BY MOUTH TWICE DAILY cefuroxime axetil 500 mg tablet TAKE ONE TABLET BY MOUTH TWICE DAILY completed cefuroxime 500 M G Oral Tablet [facility] ([facility]) gabapentin 100 MG Oral Capsule gabapentin 100 mg capsu le gabapentin 100 mg capsule completed gabapentin 100 MG Oral Capsule [facility] ([facility]) gabapentin 100 MG Oral Capsule gabapenti n 100 mg capsule TAKE ONE CAPSULE BY MOUTH TWICE DAILY gabapentin 100 mg capsule TAKE ONE CAPSU LE BY MOUTH TWICE DAILY completed gabapentin 100 M G Oral Capsule [facility] ([facility]) Prednisone 10 MG Oral Tablet prednisone 10 mg tablet prednisone 10 mg tablet completed prednisone 10 MG Oral Tablet [facility] [facility]) Insurance Providers Payer name Policy type / Coverage type Policy ID Covered libertarian ID Covered libertarian's relationship to buchanan Policy [place] Plan Information [place] Medigap Part B [id number] Self [id number] [facility] COMMUNITY PLAN [facility] [id number] SP [id number] [facility] MEDICAID [id number] SP [id number] D MEDICAID [id number] SP [id number] [facility] COMMUNITY PLAN [facility] [id number] SP [id number] [facility] COMMUNITY PLAN [facility] [id number] SP [id number] MEDICAID M [id number] Self [id number] Medicaid P [id number] S [id number] Managed Care [facility] P [id number] S [id number] [facility] COMMUNITY PLAN [facility] [id number] SP [id number] [facility] COMMUNITY PLAN [facility] [id number] SP [id number] Medicaid S [id number] S [id number] [facility] Community Plan Commercial [id number] Self [id number] [facility] Community Plan Commercial [id number] Self [id number] [facility] Health Maintenance Organization (O) [id number] Self [id number] [facility] Health Maintenance Organization ([facility] [id number] Self [id number] [facility] [id number] SP [id number] [facility] Health Maintenance Organization ([facility]) [id number] Self [id number] Managed Care - [facility] P [id number] S [id number] [facility] COMM[facility]AN [facility] [id number] SP [id number] Medicaid S [id number] S [id number] Managed Care - [facility] P [id number] S [id number] Medicaid S [id number] S [id number] Managed Care - [facility] Community Plan P [id number] S [id number] Medicaid S [id number] S [id number] EMEDNY [id number] SP [id number] [facility](MCAID) O [id number] S [id number] MEDICAID [id number] SP [id number] [facility] Community Plan Commercial [id number] Self [id number] MEDICAID M [id number] S [id number] [facility] Community Plan Commercial [id number] Self [id number] [facility]([place]ID) P [id number] S [id number] [facility] COMMUNITY PLAN [facility] [id number] SP [id number] Problems, Conditions, and Diagnoses Code Display Name Description Problem Type Effective Dates Data Source(s) 788588327 History of malignant neoplasm of cervix History of Malignant Neoplasm of Cervix Problem 02/25/2021 12:00:00 AM EDT [place] ([facility]) [id number] Nicotine dependence with current use Gustavo otine Dependence with Current Use Problem 11/26/2020 12:00:00 AM EDT [place] ([facility]) [id number] Nicotine dependence with current use Gustavo otine Dependence with Current Use Problem 11/26/2020 12:00:00 AM EDT [place] ([facility]) [id number] Nicotine dependence with current use Gustavo otine Dependence with Current Use Problem 11/26/2020 12:00:00 AM EDT [place] ([facility]) [id number] Nicotine dependence with current use Gustavo otine Dependence with Current Use Problem 11/26/2020 12:00:00 AM EDT [place] ([facility]) [id number] Patient asked to attend Patient Asked to Attend Proble 10/17/2019 12:00:00 AM EDT - 02/24/2021 12:00:00 AM EDT [place] ([facility]) [id number] Backache Backache Problem 09/05/2019 12:0 0:00 AM EDT - 02/24/2021 12:00:00 AM EDT [facility] ([facility]) [id number] Evaluation finding Evaluation Finding Problem 11/2019 12:00:00 AM EST - 02/24/2021 12:00:00 AM EDT [place] ([facility]) [id number] Pharyngeal finding Pharyngeal Finding Problem 11/2018 12:00:00 AM EDT - 02/24/2021 12:00:00 AM EDT [place] ([facility]) [id number] Screening for malignant neoplasm of cerv ix Screening for Malignant Neoplasm of Cervix Problem 01/18/2019 12:00:00 AM EDT - 02/24/2021 12:00:00 AM EDT [place] ([facility]) [id number] Premature menopause Premature Menopause Problem 0 01/13/2019 12:00:00 AM EDT - 02/24/2021 12:00:00 AM EDT [place] ([facility]) [id number] Abnormal weight loss Abnormal Weight Loss Problem 11/16/2018 12:00:00 AM EDT - 02/24/2021 12:00:00 AM EDT [place] ([facility]) [id number] Disorder of upper respiratory system Dis order of Upper Respiratory System Problem 07/29/2018 12:00:00 AM EDT - 02/24/2021 12:00:00 AM EDT [place] ([facility]) [id number] Clinical finding Clinical Finding Problem 019 12:00:00 AM EST - 02/24/2021 12:00:00 AM EDT [place] ([facility]) [id number] Cough Cough Problem 03/04/2018 12:0 0:00 AM EST - 02/24/2021 12:00:00 AM EDT [place] ([facility]) [id number] Injury of head Injury of Head Problem 07/22/2017 12:00:00 AM EDT - 02/24/2021 12:00:00 AM EDT [place] ([facility]) [id number] Procedure Procedure Problem 07/15/2017 12:0 0:00 AM EDT - 02/24/2021 12:00:00 AM EDT [place] ([facility]) [id number] Fracture of metacarpal bone Fracture of Metacarpal Bon e Problem 03/16/2017 12:00:00 AM EST - 02/24/2021 12:00:00 AM EDT [place] ([facility]) [id number] Finding of body mass index Finding of Body Mass Index Problem 02/17/2017 12:00:00 AM EDT - 02/24/2021 12:00:00 AM EDT [place] ([facility]) [id number] Disorder of musculoskeletal system Disorder of M usculoskeletal System Problem 10/01/2016 12:00:00 AM EDT - 02/24/2021 12:00:00 AM ED Pankaj DURANT ([facility]) [id number] Tobacco use and exposure - finding Tobacco Use a nd Exposure - Finding Problem 09/09/2016 12:00:00 AM EDT - 02/24/2021 12:00:00 AM ED Pankaj DURANT ([facility]) 75488224 Disorder of skin and/or subcutaneous tis keith Disorder of Skin And/or Subcutaneous Tissue Problem 09/09/2016 12:00:00 AM EDT - 02/24/2021 12:00:00 AM EDT [place] ([facility]) Surgeries/Procedures Procedure Description Date Indications Data Source(s) OFFICE OUTPATIENT NEW 45 MINUTES 03/05/2021 12:00:00 A M EST [facility] ([facility], ) Spirometry 02/27/2021 12:00:00 AM EDT M EDENT ([facility]) OFFICE OUTPATIENT VISIT 25 MINUTES 02/27/2021 12[facility]00[facility]00 [facility] MAMMO, screening, digital, bilateral 02/25/2021 12:00: 00 AM EDT [place] ([facility]) PRESSURIZED/NONPRESSURIZED INHALATION TREATMENT 2020 12:00:00 AM EDT [facility] ([facility], [facility]) Therapeutic, Prophylactic Or Diagnostic Injection Subq/Im 02/22/2021 12:00:00 AM EDT [facility] ([facility]) OFFICE OUTPATIENT NEW 30 MINUTES 02/22/2021 12:00:00 A M EDT [facility] ([facility]) MRI, cervical spine, w/o contrast 10/04/2020 12:00:00 AM EDT [place] ([facility]) MRI, lumbar spine, w/o contrast 10/04/2020 12:00:00 AM EDT [place] ([facility]) Results ID Date Data Source [id number] 02/27/2021 02:19:00 PM EDT [facility] Name Value Range Interpretation Code Description Data Alia rce(s) Supporting Document(s) PDFReport Laboratory test result [facility] ([facility], ) FVC-Pred 2.73 L [facility] ([facility]) FVC-Pre 3.02 L [facility] ([facility]) FVC-LLN 2.18 L [facility] ([facility]) FVC-%Pred-Pre 110 L [facility] ([facility], ) Fev1-Pred 2.18 L [facility] ([facility]) Fev1-Pre 1.65 L [facility] ([facility]) Fev1-%Pred-Pre 75 L [facility] ([facility]) Fev1-LLN 1.71 L [facility] ([facility], ) Fev6-Pred 2.66 L [facility] ([facility]) Fev6-Pre 2.88 L [facility] ([facility]) Fev6-LLN 2.12 L [facility] ([facility]) Fev6-%Pred-Pre 108 L [facility] ([facility]) Sco4rju-Dhih 80 % [facility] ([facility]) Pkk1tie-%Pred-Pre 68 % [facility] ([facility]) Utu9mrf-Tsn 55 % [facility] ([facility]) Pjm5nyy-Oaf 96 % [facility] ([facility]) Abo3eaz-USU 70 % [facility] ([facility]) Ryy1exj-Babc 97 % [facility] ([facility]) Qtq8zzl-%Pred-Pre 98 % [facility] ([facility]) FEFMax-Pred 5.72 L/E/sec [facility] ([facility]) FEFMax-%Pred-Pre 69 L/E/sec [facility] ([facility]) FEFMax-LLN 4.36 L/E/sec [facility] ([facility]) FEFMax-Pre 3.98 L/E/sec [facility] ([facility]) Xpf4138-IXF 1.39 L/E/sec [facility] ([facility]) Ybh1394-%Pred-Pre 29 L/E/sec [facility] ([facility]) Mof7746-Dxbs 2.38 L/E/sec [facility] ([facility]) Bpb2276-Idu 0.70 L/E/sec [facility] ([facility], ) Hdd9luz5-Jikp 82 % [facility] ([facility]) Zfx4gkl3-Wle 57 % [facility] ([facility]) ExpTime-Pre 7.49 sec [facility] ([facility]) Sdp8jgj9-%Pred-Pre 69 % [facility] ([facility]) Orm2shv0-PME 73 % [facility] ([facility]) ID Date Data Source [id number] 02/22/2021 12:00:00 AM EDT [facility] Name Value Range Interpretation Code Description Data Alia rce(s) Supporting Document(s) SARS-CoV2 Rapid Antigen Negative [facility] This lab was reported by Herman Foster. ID Date Data Source [id number] 12/17/2020 02:52:00 PM EDT [facility]) Name Value Range Interpretation Code Description Data Alia rce(s) Supporting Document(s) sars-cov-2 negative negative Sars-cov-2 [facility]) ID Date Data Source [id number] 12/17/2020 02:52:00 PM EDT [facility]) Name Value Range Interpretation Code Description Data Alia rce(s) Supporting Document(s) sars-cov-2 negative negative Sars-cov-2 [facility]) ID Date Data Source [id number] 12/17/2020 02:52:00 PM EDT [facility]) Name Value Range Interpretation Code Description Data Alia rce(s) Supporting Document(s) sars-cov-2 negative negative Sars-cov-2 [facility]) ID Date Data Source [id number] 12/17/2020 02:42:00 [facility] Name Value Range Interpretation Code Description Data Alia rce(s) Supporting Document(s) SARS coronavirus 2 RdRp gene [Presence] in Respiratory specimen by [facility] with probe detection Not detected [facility] This lab was ordered by [facility] and reported by [facility]. ID Date Data Source [id number] 12/10/2020 10:25:00 AM EDT [place] ([facility]) Name Value Range Interpretation Code Description Data Alia rce(s) Supporting Document(s) sars-cov-2 negative negative Sars-cov-2 [place] ([facility]) ID Date Data Source [id number] 12/10/2020 10:25:00 AM EDT [place] ([facility]) Name Value Range Interpretation Code Description Data Alia rce(s) Supporting Document(s) sars-cov-2 negative negative Sars-cov-2 [place] ([facility]) ID Date Data Source [id number] 12/10/2020 10:25:00 AM EDT [place] ([facility]) Name Value Range Interpretation Code Description Data Alia rce(s) Supporting Document(s) sars-cov-2 negative negative Sars-cov-2 [place] ([facility]) ID Date Data Source [id number] 12/10/2020 10:16:00 AM EDT [facility] Name Value Range Interpretation Code Description Data Alia rce(s) Supporting Document(s) SARS coronavirus 2 RdRp gene [Presence] in Respiratory specimen by BURT with probe detection Not detected [facility] This lab was ordered by [facility] and reported by [facility]. ID Date Data Source [id number] 11/30/2020 02:30:00 PM EDT [place] ([facility]) Name Value Range Interpretation Code Description Data Alia rce(s) Supporting Document(s) sars-cov-2 negative negative Sars-cov-2 [facility]) ID Date Data Source [id number] 11/30/2020 02:30:00 PM EDT [place] ([facility]) Name Value Range Interpretation Code Description Data Alia rce(s) Supporting Document(s) sars-cov-2 negative negative Sars-cov-2 [place] ([facility]) ID Date Data Source [id number] 11/30/2020 02:30:00 PM EDT [place] ([facility]) Name Value Range Interpretation Code Description Data Alia rce(s) Supporting Document(s) sars-cov-2 negative negative Sars-cov-2 [place] ([facility]) ID Date Data Source [id number] 11/30/2020 02:21:00 PM EDT [facility] Name Value Range Interpretation Code Description Data Alia rce(s) Supporting Document(s) SARS coronavirus 2 RdRp gene [Presence] in Respiratory specimen by [facility]URT with probe detection Not detected [facility] This lab was ordered by [facility] and reported by [facility]. ID Date Data Source [id number] 11/15/2020 07:59:00 AM EDT [place] ([facility]) Name Value Range Interpretation Code Description Data Alia rce(s) Supporting Document(s) triglycerides level 100 mg/dL <150 Triglycerides Le dalila [place] ([facility]) non-HDL-C 143 mg/dL Non-hdl-c [facility] ([facility]) Cholesterol in LDL [Mass/volume] in Serum or Plasma 123 mg/dL <100 Above high normal LDL Cholesterol [place] ([facility]) cholesterol level 201 mg/dL <200 Above high normal Cholesterol Level [place] ([facility]) HDL cholesterol 58 mg/dL >40 HDL Cholesterol ATHE NA ([facility]) cholesterol risk ratio <5 Cholesterol R isk Ratio [place] ([facility]) ID Date Data Source [id number] 11/15/2020 07:59:00 AM EDT [place] ([facility]) Name Value Range Interpretation Code Description Data Alia rce(s) Supporting Document(s) glucose, fasting 82 mg/dL 70-100 Glucose, Fasting AT [place] ([facility]) creatinine for GFR 0.84 mg/dL 0.55-1.30 Creatinine for GF R [place] ([facility]) blood urea nitrogen 15 mg/dL 7-18 Blood Urea Nitro gen [place] ([facility]) glomerular filtration rate > 60.0 >58 Glomerula r Filtration Rate [place] ([facility]) sodium level 139 mEq/L 136-145 Sodium Level [place] (No [facility]) potassium serum 4.7 mEq/L 3.5-5.1 Potassium Serum ATHE NA ([facility]) carbon dioxide level 31 mEq/L 21-32 Carbon Dioxide Level [place] ([facility]) chloride level 106 mEq/L 98-107 Chloride Level [place] ([facility]) anion gap 2 mEq/L 8-16 Below low normal Anion Gap [place] ( [facility]) calcium level 9.1 mg/dL 8.5-10.1 Calcium Level [place] ( [facility]) ALT/SGPT 17 U/L 12-78 ALT/SGPT [place] ([facility]) AST/SGOT 13 U/L 7-37 AST/SGOT [place] ([facility]) bilirubin,total 0.5 mg/dL 0.2-1.0 Bilirubin,total AT[facility] ([facility]) total protein 7.5 gm/dL 6.4-8.2 Total Protein [place] ( [facility]) alkaline phosphatase 80 U/L 45-117 Alkaline Phosph atase [place] ([facility]) albumin 4.1 gm/dL 3.2-5.2 Albumin [place] ([facility]) albumin/globulin ratio 1.2-2.2 Albumin/globu ju Ratio [place] ([facility]) ID Date Data Source [id number] 11/15/2020 07:59:00 AM EDT [place] ([facility]) Name Value Range Interpretation Code Description Data Alia rce(s) Supporting Document(s) white blood count 7.9 10 4.0-10.0 White Blood Count [place] ([facility]) red blood count 4.76 10 4.00-5.40 Red Blood Count ATHE NA ([facility]) hemoglobin 15.2 g/dL 12.0-15.5 Hemoglobin [place] ([facility]) hematocrit 44.1 % 36.0-47.0 Hematocrit [place] ([facility]) mean corpuscular hemoglobin 31.9 pg 27.0-33.0 Mean Cor puscular Hemoglobin [place] ([facility]) mean corpuscular volume 92.6 fL 80.0-96.0 Mean Corpusc ular Volume [place] ([facility]) platelet count, automated 359 10 150-450 Platelet C ount, Automated [place] ([facility]) mean corpuscular HGB conc 34.5 g/dL 32.0-36.5 Mean Corpu scular HGB Conc [place] ([facility]) red cell distribution width 13.2 % 11.5-14.5 Red Cell Distribution Width [place] ([facility]) lymph % 37.7 % 24.0-44.0 Lymph % [place] ([facility]) neutrophils % 49.0 % 36.0-66.0 Neutrophils % [place] ( [facility]) mono % 7.6 % 2.0-8.0 Thayer % [place] ([facility]) eos % 4.4 % 0.0-3.0 Above high normal Eos % [place] ([facility]) immature granulocyte % 0.3 % 0-3.0 Immature Gran ulocyte % [place] ([facility]) baso % 1.0 % 0.0-1.0 Baso % [place] ([facility]) neutrophils # 3.9 10 1.5-8.5 Neutrophils # [place] ( [facility]) nucleated red blood cell % 0.0 % 0-0 Nucleated Red Blood Cell % [place] ([facility]) lymph # 3.0 10 1.5-5.0 Lymph # [place] ([facility]) mono # 0.6 10 0.0-0.8 Thayer # [place] ([facility]) eos # 0.4 10 0.0-0.5 Eos # [place] ([facility]) baso # 0.1 10 0.0-0.2 Baso # [place] ([facility]) ID Date Data Source [id number] 11/15/2020 07:59:00 AM EDT [place] ([facility]) Name Value Range Interpretation Code Description Data Alia rce(s) Supporting Document(s) triglycerides level 100 mg/dL <150 Triglycerides Le dalila [place] ([facility]) Cholesterol in LDL [Mass/volume] in Serum or Plasma 123 mg/dL <100 Above high normal LDL Cholesterol [place] ([facility]) cholesterol level 201 mg/dL <200 Above high normal Cholesterol Level [place] ([facility]) HDL cholesterol 58 mg/dL >40 HDL Cholesterol AT[facility] ([facility]) non-HDL-C 143 mg/dL Non-hdl-c [place] ([facility]) cholesterol risk ratio <5 Cholesterol R isk Ratio [place] ([facility]) ID Date Data Source [id number] 11/15/2020 07:59:00 AM EDT [place] ([facility]) Name Value Range Interpretation Code Description Data Alia rce(s) Supporting Document(s) glucose, fasting 82 mg/dL 70-100 Glucose, Fasting AT [facility]) blood urea nitrogen 15 mg/dL 7-18 Blood Urea Nitro gen [place] ([facility]) creatinine for GFR 0.84 mg/dL 0.55-1.30 Creatinine for GF R [place] ([facility]) glomerular filtration rate > 60.0 >58 Glomerula r Filtration Rate [place] ([facility]) sodium level 139 mEq/L 136-145 Sodium Level [place] ([facility]) potassium serum 4.7 mEq/L 3.5-5.1 Potassium Serum AT[place] NA ([facility]) chloride level 106 mEq/L 98-107 Chloride Level [place] ([facility]) carbon dioxide level 31 mEq/L 21-32 Carbon Dioxide Level [place] ([facility]) anion gap 2 mEq/L 8-16 Below low normal Anion Gap [place] ( [facility]) AST/SGOT 13 U/L 7-37 AST/SGOT [place] ([facility]) calcium level 9.1 mg/dL 8.5-10.1 Calcium Level [place] ( [facility]) bilirubin,total 0.5 mg/dL 0.2-1.0 Bilirubin,total ATHE NA ([facility]) alkaline phosphatase 80 U/L 45-117 Alkaline Phosph atase [place] ([facility]) ALT/SGPT 17 U/L 12-78 ALT/SGPT [place] ([facility]) albumin/globulin ratio 1.2-2.2 Albumin/globu ju Ratio [place] ([facility]) albumin 4.1 gm/dL 3.2-5.2 Albumin [place] ([facility]) total protein 7.5 gm/dL 6.4-8.2 Total Protein [place] ( [facility]) ID Date Data Source [id number] 11/15/2020 07:59:00 AM EDT [place] ([facility]) Name Value Range Interpretation Code Description Data Alia rce(s) Supporting Document(s) white blood count 7.9 10 4.0-10.0 White Blood Count [place] ([facility]) hemoglobin 15.2 g/dL 12.0-15.5 Hemoglobin [place] ([facility]) red blood count 4.76 10 4.00-5.40 Red Blood Count [facility] NA ([facility]) mean corpuscular hemoglobin 31.9 pg 27.0-33.0 Mean Cor puscular Hemoglobin [place] ([facility]) hematocrit 44.1 % 36.0-47.0 Hematocrit [place] ([facility]) mean corpuscular volume 92.6 fL 80.0-96.0 Mean Corpusc ular Volume [place] ([facility]) mean corpuscular HGB conc 34.5 g/dL 32.0-36.5 Mean Corpu scular HGB Conc [place] ([facility]) red cell distribution width 13.2 % 11.5-14.5 Red Cell Distribution Width [place] ([facility]) platelet count, automated 359 10 150-450 Platelet C ount, Automated [place] ([facility]) neutrophils % 49.0 % 36.0-66.0 Neutrophils % [place] ( [facility]) mono % 7.6 % 2.0-8.0 Thayer % [place] ([facility]) lymph % 37.7 % 24.0-44.0 Lymph % [place] ([facility]) baso % 1.0 % 0.0-1.0 Baso % [place] ([facility]) eos % 4.4 % 0.0-3.0 Above high normal Eos % [place] ([facility]) immature granulocyte % 0.3 % 0-3.0 Immature Gran ulocyte % [place] ([facility]) nucleated red blood cell % 0.0 % 0-0 Nucleated Red Blood Cell % [place] ([facility]) lymph # 3.0 10 1.5-5.0 Lymph # [place] ([facility]) neutrophils # 3.9 10 1.5-8.5 Neutrophils # [place] ( [facility]) mono # 0.6 10 0.0-0.8 Thayer # [place] ([facility]) eos # 0.4 10 0.0-0.5 Eos # [place] ([facility]) baso # 0.1 10 0.0-0.2 Baso # [facility]E ([facility]) ID Date Data Source [id number] 11/15/2020 07:59:00 AM EDT [place] ([facility]) Name Value Range Interpretation Code Description Data Alia rce(s) Supporting Document(s) triglycerides level 100 mg/dL <150 Triglycerides Le dalila [place] ([facility]) non-HDL-C 143 mg/dL Non-hdl-c [place] ([facility]) Cholesterol in LDL [Mass/volume] in Serum or Plasma 123 mg/dL <100 Above high normal LDL Cholesterol [place] ([facility]) cholesterol level 201 mg/dL <200 Above high normal Cholesterol Level [place] ([facility]) HDL cholesterol 58 mg/dL >40 HDL Cholesterol ATHE ([facility]) cholesterol risk ratio <5 Cholesterol R isk Ratio [place] ([facility]) ID Date Data Source [id number] 11/15/2020 07:59:00 AM EDT [place] ([facility]) Name Value Range Interpretation Code Description Data Alia rce(s) Supporting Document(s) glucose, fasting 82 mg/dL 70-100 Glucose, Fasting AT [facility]) creatinine for GFR 0.84 mg/dL 0.55-1.30 Creatinine for GF R [place] ([facility]) blood urea nitrogen 15 mg/dL 7-18 Blood Urea Nitro gen [place] ([facility]) glomerular filtration rate > 60.0 >58 Glomerula r Filtration Rate [place] ([facility]) sodium level 139 mEq/L 136-145 Sodium Level [place] (No [facility]) potassium serum 4.7 mEq/L 3.5-5.1 Potassium Serum ATHE ([facility]) anion gap 2 mEq/L 8-16 Below low normal Anion Gap [place] ( [facility]) chloride level 106 mEq/L 98-107 Chloride Level [place] ([facility]) carbon dioxide level 31 mEq/L 21-32 Carbon Dioxide Level [place] ([facility]) AST/SGOT 13 U/L 7-37 AST/SGOT [place] ([facility]) ALT/SGPT 17 U/L 12-78 ALT/SGPT [place] ([facility]) calcium level 9.1 mg/dL 8.5-10.1 Calcium Level [place] ( [facility]) bilirubin,total 0.5 mg/dL 0.2-1.0 Bilirubin,total ATHE ([facility]) total protein 7.5 gm/dL 6.4-8.2 Total Protein [place] ( [facility]) alkaline phosphatase 80 U/L 45-117 Alkaline Phosph atase [place] ([facility]) albumin 4.1 gm/dL 3.2-5.2 Albumin [place] ([facility]) albumin/globulin ratio 1.2-2.2 Albumin/globu ju Ratio [place] ([facility]) ID Date Data Source [id number] 11/15/2020 07:59:00 AM EDT [place] ([facility]) Name Value Range Interpretation Code Description Data Alia rce(s) Supporting Document(s) white blood count 7.9 10 4.0-10.0 White Blood Count [place] ([facility]) red blood count 4.76 10 4.00-5.40 Red Blood Count AT[place] ([facility]) hemoglobin 15.2 g/dL 12.0-15.5 Hemoglobin [place] ([facility]) hematocrit 44.1 % 36.0-47.0 Hematocrit [place] ([facility]) mean corpuscular HGB conc 34.5 g/dL 32.0-36.5 Mean Corpu scular HGB Conc [place] ([facility]) mean corpuscular hemoglobin 31.9 pg 27.0-33.0 Mean Cor puscular Hemoglobin [place] ([facility]) mean corpuscular volume 92.6 fL 80.0-96.0 Mean Corpusc ular Volume [place] ([facility]) red cell distribution width 13.2 % 11.5-14.5 Red Cell Distribution Width [place] ([facility]) platelet count, automated 359 10 150-450 Platelet C ount, Automated [place] ([facility]) mono % 7.6 % 2.0-8.0 [place] % [place] ([facility]) neutrophils % 49.0 % 36.0-66.0 Neutrophils % [place] ( [facility]) lymph % 37.7 % 24.0-44.0 Lymph % [place] ([facility]) immature granulocyte % 0.3 % 0-3.0 Immature Gran ulocyte % [place] ([facility]) baso % 1.0 % 0.0-1.0 Baso % [place] ([facility]) eos % 4.4 % 0.0-3.0 Above high normal Eos % [place] ([facility]) neutrophils # 3.9 10 1.5-8.5 Neutrophils # [place] ( [facility]) nucleated red blood cell % 0.0 % 0-0 Nucleated Red Blood Cell % [place] ([facility]) eos # 0.4 10 0.0-0.5 Eos # [place] ([facility]) mono # 0.6 10 0.0-0.8 Thayer # [place] ([facility]) lymph # 3.0 10 1.5-5.0 Lymph # [place] ([facility]) baso # 0.1 10 0.0-0.2 Baso # [place] ([facility]) ID Date Data Source [id number] 11/15/2020 07:59:00 AM EDT [place] ([facility]) Name Value Range Interpretation Code Description Data Alia rce(s) Supporting Document(s) triglycerides level 100 mg/dL <150 Triglycerides Le dalila [place] ([facility]) HDL cholesterol 58 mg/dL >40 HDL Cholesterol ATHE ([facility]) cholesterol level 201 mg/dL <200 Above high normal Cholesterol Level [place] ([facility]) cholesterol risk ratio <5 Cholesterol R isk Ratio [place] ([facility]) Cholesterol in LDL [Mass/volume] in Serum or Plasma 123 mg/dL <100 Above high normal LDL Cholesterol [place] ([facility]) non-HDL-C 143 mg/dL Non-hdl-c [place] ([facility]) ID Date Data Source [id number] 11/15/2020 07:59:00 AM EDT [place] ([facility]) Name Value Range Interpretation Code Description Data Alia rce(s) Supporting Document(s) glucose, fasting 82 mg/dL 70-100 Glucose, Fasting AT [facility] ([facility]) blood urea nitrogen 15 mg/dL 7-18 Blood Urea Nitro gen [place] ([facility]) sodium level 139 mEq/L 136-145 Sodium Level [place] (No [facility]) glomerular filtration rate > 60.0 >58 Glomerula r Filtration Rate [place] ([facility]) creatinine for GFR 0.84 mg/dL 0.55-1.30 Creatinine for GF R [place] ([facility]) potassium serum 4.7 mEq/L 3.5-5.1 Potassium Serum ATHE NA ([facility]) chloride level 106 mEq/L 98-107 Chloride Level [place] ([facility]) carbon dioxide level 31 mEq/L 21-32 Carbon Dioxide Level [place] ([facility]) anion gap 2 mEq/L 8-16 Below low normal Anion Gap [place] ( [facility]) calcium level 9.1 mg/dL 8.5-10.1 Calcium Level [place] ( [facility]) AST/SGOT 13 U/L 7-37 AST/SGOT [place] ([facility]) ALT/SGPT 17 U/L 12-78 ALT/SGPT [place] ([facility]) alkaline phosphatase 80 U/L 45-117 Alkaline Phosph atase [place] ([facility]) bilirubin,total 0.5 mg/dL 0.2-1.0 Bilirubin,total ATHE ([facility]) total protein 7.5 gm/dL 6.4-8.2 Total Protein [place] ( [facility]) albumin 4.1 gm/dL 3.2-5.2 Albumin [place] ([facility]) albumin/globulin ratio 1.2-2.2 Albumin/globu ju Ratio [place] ([facility]) ID Date Data Source [id number] 11/15/2020 07:59:00 AM EDT [place] ([facility]) Name Value Range Interpretation Code Description Data Alia rce(s) Supporting Document(s) white blood count 7.9 10 4.0-10.0 White Blood Count [place] ([facility]) hematocrit 44.1 % 36.0-47.0 Hematocrit [place] ([facility]) hemoglobin 15.2 g/dL 12.0-15.5 Hemoglobin [place] ([facility]) red blood count 4.76 10 4.00-5.40 Red Blood Count ATHE NA ([facility]) mean corpuscular volume 92.6 fL 80.0-96.0 Mean Corpusc ular Volume [place] ([facility]) mean corpuscular hemoglobin 31.9 pg 27.0-33.0 Mean Cor puscular Hemoglobin [place] ([facility]) mean corpuscular HGB conc 34.5 g/dL 32.0-36.5 Mean Corpu scular HGB Conc [place] ([facility]) platelet count, automated 359 10 150-450 Platelet C ount, Automated [place] ([facility]) red cell distribution width 13.2 % 11.5-14.5 Red Cell Distribution Width [place] ([facility]) lymph % 37.7 % 24.0-44.0 Lymph % [place] ([facility]) neutrophils % 49.0 % 36.0-66.0 Neutrophils % [place] ( [facility]) mono % 7.6 % 2.0-8.0 [place] % [place] ([facility]) eos % 4.4 % 0.0-3.0 Above high normal Eos % [place] ([facility]) immature granulocyte % 0.3 % 0-3.0 Immature Gran ulocyte % [place] ([facility]) baso % 1.0 % 0.0-1.0 Baso % [place] ([facility]) neutrophils # 3.9 10 1.5-8.5 Neutrophils # [place] ( [facility]) nucleated red blood cell % 0.0 % 0-0 Nucleated Red Blood Cell % [place] ([facility]) mono # 0.6 10 0.0-0.8 [place]ayer # [place] ([facility]) lymph # 3.0 10 1.5-5.0 Lymph # [place] ([facility]) eos # 0.4 10 0.0-0.5 Eos # [place] ([facility]) baso # 0.1 10 0.0-0.2 Baso # [place] ([facility]) ID Date Data Source [id number] 11/12/2020 12:00:00 AM EDT [place] ([email or web address]) Name Value Range Interpretation Code Description Data Alia rce(s) Supporting Document(s) SARS-CoV-2 (COVID-19) RNA [Presence] in Respiratory specimen by BUR[facility] with probe detection negative negative Sars-cov-2 [place] ([email or web address]) ID Date Data Source [id number] 11/12/2020 12:00:00 AM EDT [place] ([email or web address]) Name Value Range Interpretation Code Description Data Alia rce(s) Supporting Document(s) ID Date Data Source [id number] 11/12/2020 12:00:00 AM EDT [facility] Name Value Range Interpretation Code Description Data Alia rce(s) Supporting Document(s) SARS-CoV-[address] [facility] This lab was ordered by [email or web address]-C[facility] and reported by [employer]. ID Date Data Source [id number] 09/03/2020 12:00:00 AM EDT [place] ([facility]) Name Value Range Interpretation Code Description Data Alia rce(s) Supporting Document(s) SARS-CoV-2 (COVID-19) RNA [Presence] in Respiratory specimen by BURT with probe detection negative negative Sars-cov-2 [place] ([email or web address]) ID Date Data Source [id number] 09/03/2020 12:00:00 AM EDT [place] ([email or web address]) Name Value Range Interpretation Code Description Data Alia rce(s) Supporting Document(s) ID Date Data Source [id number] 09/03/2020 12:00:00 AM EDT [place] ([email or web address]) Name Value Range Interpretation Code Description Data Alia rce(s) Supporting Document(s) SARS-CoV-2 (COVID-19) RNA [Presence] in Respiratory specimen by BURT with probe detection negative negative Sars-cov-2 [place] ([facility]) ID Date Data Source [id number] 09/03/2020 12:00:00 AM EDT [facility]) Name Value Range Interpretation Code Description Data Alia rce(s) Supporting Document(s) ID Date Data Source [id number] 09/03/2020 12:00:00 AM EDT [place] ([facility]) Name Value Range Interpretation Code Description Data Alia rce(s) Supporting Document(s) SARS-CoV-2 (COVID-19) RNA [Presence] in Respiratory specimen by BURT with probe detection negative negative Sars-cov-2 [facility]) ID Date Data Source [id number] 09/03/2020 12:00:00 AM EDT [facility]) Name Value Range Interpretation Code Description Data Alia rce(s) Supporting Document(s) ID Date Data Source [id number] 09/03/2020 12:00:00 AM EDT [facility]) Name Value Range Interpretation Code Description Data Alia rce(s) Supporting Document(s) SARS-CoV-2 (COVID-19) RNA [Presence] in Respiratory specimen by BURT with probe detection negative negative Sars-cov-2 [place] ([facility]) ID Date Data Source [id number] 09/03/2020 12:00:00 AM EDT [facility]) Name Value Range Interpretation Code Description Data Alai rce(s) Supporting Document(s) ID Date Data Source [id number] 09/03/2020 12:00:00 AM EDT [facility]) Name Value Range Interpretation Code Description Data Alia rce(s) Supporting Document(s) SARS-CoV-2 (COVID-19) RNA [Presence] in Respiratory specimen by BURT with probe detection negative negative Sars-cov-2 [place] ([email or web address]) ID Date Data Source [id number] 09/03/2020 12:00:00 AM EDT [place] ([facility]) Name Value Range Interpretation Code Description Data Alia rce(s) Supporting Document(s) ID Date Data Source [id number] 09/03/2020 12:00:00 AM EDT [facility] Name Value Range Interpretation Code Description Data Alia rce(s) Supporting Document(s) SARS-CoV-2 NEGATIVE [facility] This lab was ordered by [email or web address] and reported by [employer]. ID Date Data Source [id number] 09/03/2020 12:00:00 AM EDT [place] ([facility]) Name Value Range Interpretation Code Description Data Alia rce(s) Supporting Document(s) SARS-CoV-2 (COVID-19) RNA [Presence] in Respiratory specimen by BURT with probe detection negative negative Sars-cov-2 [place] ([facility]) ID Date Data Source [id number] 09/03/2020 12:00:00 AM EDT [place] ([facility]) Name Value Range Interpretation Code Description Data Alia rce(s) Supporting Document(s) ID Date Data Source [id number] 09/03/2020 12:00:00 AM EDT [place] ([email or web address]) Name Value Range Interpretation Code Description Data Alia rce(s) Supporting Document(s) SARS-CoV-2 (COVID-19) RNA [Presence] in Respiratory specimen by BURT with probe detection negative negative Sars-cov-2 [place] ([email or web address]) ID Date Data Source [id number] 09/03/2020 12:00:00 AM EDT [place] ([facility]) Name Value Range Interpretation Code Description Data Alia rce(s) Supporting Document(s) ID Date Data Source [id number] 08/08/2020 10:55:00 AM EDT [place] ([facility]) Name Value Range Interpretation Code Description Data Alia rce(s) Supporting Document(s) triglycerides level 126 mg/dL <150 Triglycerides Le dalila [place] ([facility]) cholesterol level 233 mg/dL <200 Above high normal Cholesterol Level [place] ([facility]) Cholesterol in LDL [Mass/volume] in Serum or Plasma 148 mg/dL <100 Above high normal LDL Cholesterol [place] ([facility]) non-HDL-C 173 mg/dL Non-hdl-c [place] ([facility]) HDL cholesterol 60 mg/dL >40 HDL Cholesterol ATHE NA ([facility]) cholesterol risk ratio <5 Cholesterol R isk Ratio [place] ([facility]) ID Date Data Source [id number] 08/08/2020 10:55:00 AM EDT [facility]) Name Value Range Interpretation Code Description Data Alia rce(s) Supporting Document(s) glucose, fasting 96 mg/dL 70-100 Glucose, Fasting AT [facility]) blood urea nitrogen 12 mg/dL 7-18 Blood Urea Nitro gen [place] ([facility]) creatinine for GFR 0.90 mg/dL 0.55-1.30 Creatinine for GF R [place] ([facility]) sodium level 137 mEq/L 136-145 Sodium Level [place] (No [facility]) glomerular filtration rate > 60.0 >58 Glomerula r Filtration Rate [place] ([facility]) carbon dioxide level 27 mEq/L 21-32 Carbon Dioxide Level [place] ([facility]) calcium level 9.7 mg/dL 8.5-10.1 Calcium Level [place] ( [facility]) chloride level 105 mEq/L 98-107 Chloride Level [place] ([facility]) potassium serum 4.5 mEq/L 3.5-5.1 Potassium Serum [place] ([facility]) anion gap 5 mEq/L 8-16 Below low normal Anion Gap [place] ( [facility]) bilirubin,total 0.3 mg/dL 0.2-1.0 Bilirubin,total [place] ([facility]) alkaline phosphatase 95 U/L 45-117 Alkaline Phosph atase [place] ([facility]) AST/SGOT 11 U/L 7-37 AST/SGOT [place] ([facility]) ALT/SGPT 17 U/L 12-78 ALT/SGPT [place] ([facility]) albumin 3.9 gm/dL 3.2-5.2 Albumin [place] ([facility]) total protein 7.3 gm/dL 6.4-8.2 Total Protein [place] ( [facility]) albumin/globulin ratio 1.2-2.2 Below low normal Albumin /globulin Ratio [place] ([facility]) ID Date Data Source [id number] 08/08/2020 10:55:00 AM EDT [place] ([facility]) Name Value Range Interpretation Code Description Data Alia rce(s) Supporting Document(s) white blood count 7.1 10 4.0-10.0 White Blood Count [place] ([facility]) hemoglobin 14.7 g/dL 12.0-15.5 Hemoglobin [place] ([facility]) red blood count 4.60 10 4.00-5.40 Red Blood Count [place] ([facility]) hematocrit 42.2 % 36.0-47.0 Hematocrit [place] ([facility]) mean corpuscular volume 91.7 fL 80.0-96.0 Mean Corpusc ular Volume [place] ([facility]) mean corpuscular hemoglobin 32.0 pg 27.0-33.0 Mean Cor puscular Hemoglobin [place] ([facility]) mean corpuscular HGB conc 34.8 g/dL 32.0-36.5 Mean Corpu scular HGB Conc [place] ([facility]) neutrophils % 41.8 % 36.0-66.0 Neutrophils % [place] ( [facility]) red cell distribution width 12.9 % 11.5-14.5 Red Cell Distribution Width [place] ([facility]) platelet count, automated 316 10 150-450 Platelet C ount, Automated [place] ([facility]) lymph % 46.0 % 24.0-44.0 Above high normal Lymph % [place] ([facility]) mono % 6.8 % 2.0-8.0 [place] % [place] ([facility]) eos % 4.0 % 0.0-3.0 Above high normal Eos % [place] ([facility]) baso % 1.1 % 0.0-1.0 Above high normal Baso % [place] ([facility]) nucleated red blood cell % 0.0 % 0-0 Nucleated Red Blood Cell % [place] ([facility]) immature granulocyte % 0.3 % 0-3.0 Immature Gran ulocyte % [place] ([facility]) lymph # 3.3 10 1.5-5.0 Lymph # [place] ([facility]) neutrophils # 3.0 10 1.5-8.5 Neutrophils # [place] ( [facility]) eos # 0.3 10 0.0-0.5 Eos # [place] ([facility]) mono # 0.5 10 0.0-0.8 [place] # [place] ([facility]) baso # 0.1 10 0.0-0.2 Baso # [place] ([facility]) ID Date Data Source [id number] 08/08/2020 10:55:00 AM EDT [place] ([facility]) Name Value Range Interpretation Code Description Data Alia rce(s) Supporting Document(s) HDL cholesterol 60 mg/dL >40 HDL Cholesterol ATHE NA ([facility]) cholesterol level 233 mg/dL <200 Above high normal Cholesterol Level [place] ([facility]) triglycerides level 126 mg/dL <150 Triglycerides Le dalila [place] ([facility]) Cholesterol in LDL [Mass/volume] in Serum or Plasma 148 mg/dL <100 Above high normal LDL Cholesterol [place] ([facility]) cholesterol risk ratio <5 Cholesterol R isk Ratio [place] ([facility]) non-HDL-C 173 mg/dL Non-hdl-c [place] ([facility]) ID Date Data Source [id number] 08/08/2020 10:55:00 AM EDT [place] ([facility]) Name Value Range Interpretation Code Description Data Alia rce(s) Supporting Document(s) glucose, fasting 96 mg/dL 70-100 Glucose, Fasting AT [facility] ([facility]) blood urea nitrogen 12 mg/dL 7-18 Blood Urea Nitro gen [place] ([facility]) creatinine for GFR 0.90 mg/dL 0.55-1.30 Creatinine for GF R [place] ([facility]) sodium level 137 mEq/L 136-145 Sodium Level [place] (No [facility]) glomerular filtration rate > 60.0 >58 Glomerula r Filtration Rate [place] ([facility]) potassium serum 4.5 mEq/L 3.5-5.1 Potassium Serum AT[place] ([facility]) chloride level 105 mEq/L 98-107 Chloride Level [place] ([facility]) carbon dioxide level 27 mEq/L 21-32 Carbon Dioxide Level [place] ([facility]) AST/SGOT 11 U/L 7-37 AST/SGOT [place] ([facility]) calcium level 9.7 mg/dL 8.5-10.1 Calcium Level [place] ( [facility]) anion gap 5 mEq/L 8-16 Below low normal Anion Gap [place] ( [facility]) alkaline phosphatase 95 U/L 45-117 Alkaline Phosph atase [place] ([facility]) bilirubin,total 0.3 mg/dL 0.2-1.0 Bilirubin,total ATHE NA ([facility]) ALT/SGPT 17 U/L 12-78 ALT/SGPT [place] ([facility]) total protein 7.3 gm/dL 6.4-8.2 Total Protein [place] ( [facility]) albumin 3.9 gm/dL 3.2-5.2 Albumin [place] ([facility]) albumin/globulin ratio 1.2-2.2 Below low normal Albumin /globulin Ratio [place] ([facility]) ID Date Data Source [id number] 08/08/2020 10:55:00 AM EDT [place] ([facility]) Name Value Range Interpretation Code Description Data Alia rce(s) Supporting Document(s) white blood count 7.1 10 4.0-10.0 White Blood Count [place] ([facility]) red blood count 4.60 10 4.00-5.40 Red Blood Count [place] ([facility]) hemoglobin 14.7 g/dL 12.0-15.5 Hemoglobin [place] ([facility]) hematocrit 42.2 % 36.0-47.0 Hematocrit [place] ([facility]) mean corpuscular volume 91.7 fL 80.0-96.0 Mean Corpusc ular Volume [place] ([facility]) mean corpuscular hemoglobin 32.0 pg 27.0-33.0 Mean Cor puscular Hemoglobin [place] ([facility]) red cell distribution width 12.9 % 11.5-14.5 Red Cell Distribution Width [place] ([facility]) mean corpuscular HGB conc 34.8 g/dL 32.0-36.5 Mean Corpu scular HGB Conc [place] ([facility]) platelet count, automated 316 10 150-450 Platelet C ount, Automated [place] ([facility]) neutrophils % 41.8 % 36.0-66.0 Neutrophils % [place] ( [facility]) lymph % 46.0 % 24.0-44.0 Above high normal Lymph % [place] ([facility]) mono % 6.8 % 2.0-8.0 [place] % [place] ([facility]) baso % 1.1 % 0.0-1.0 Above high normal Baso % [place] ([facility]) eos % 4.0 % 0.0-3.0 Above high normal Eos % [place] ([facility]) nucleated red blood cell % 0.0 % 0-0 Nucleated Red Blood Cell % [place] ([facility]) immature granulocyte % 0.3 % 0-3.0 Immature Gran ulocyte % [place] ([facility]) lymph # 3.3 10 1.5-5.0 Lymph # [place] ([facility]) neutrophils # 3.0 10 1.5-8.5 Neutrophils # [place] ( [facility]) eos # 0.3 10 0.0-0.5 Eos # [place] ([facility]) mono # 0.5 10 0.0-0.8 [place]ayer # [place] ([facility]) baso # 0.1 10 0.0-0.2 Baso # [place] ([facility]) ID Date Data Source [id number] 08/08/2020 10:55:00 AM EDT [place] ([facility]) Name Value Range Interpretation Code Description Data Alia rce(s) Supporting Document(s) cholesterol level 233 mg/dL <200 Above high normal Cholesterol Level [place] ([facility]) HDL cholesterol 60 mg/dL >40 HDL Cholesterol ATHE ([facility]) triglycerides level 126 mg/dL <150 Triglycerides Le dalila [place] ([facility]) cholesterol risk ratio <5 Cholesterol R isk Ratio [facility] ([facility]) non-HDL-C 173 mg/dL Non-hdl-c [place] ([facility]) Cholesterol in LDL [Mass/volume] in Serum or Plasma 148 mg/dL <100 Above high normal LDL Cholesterol [facility] ([facility]) ID Date Data Source [id number] 08/08/2020 10:55:00 AM EDT [place] ([facility]) Name Value Range Interpretation Code Description Data Alia rce(s) Supporting Document(s) glucose, fasting 96 mg/dL 70-100 Glucose, Fasting AT [facility] ([facility]) blood urea nitrogen 12 mg/dL 7-18 Blood Urea Nitro gen [place] ([facility]) potassium serum 4.5 mEq/L 3.5-5.1 Potassium Serum ATHE NA ([facility]) sodium level 137 mEq/L 136-145 Sodium Level [facility] ([facility]) creatinine for GFR 0.90 mg/dL 0.55-1.30 Creatinine for GF R [place] ([facility]) glomerular filtration rate > 60.0 >58 Glomerula r Filtration Rate [place] ([facility]) anion gap 5 mEq/L 8-16 Below low normal Anion Gap [place] ( [facility]) carbon dioxide level 27 mEq/L 21-32 Carbon Dioxide Level [facility] ([facility]) chloride level 105 mEq/L 98-107 Chloride Level [place] ([facility]) calcium level 9.7 mg/dL 8.5-10.1 Calcium Level [place] ( [facility]) total protein 7.3 gm/dL 6.4-8.2 Total Protein [place] ( [facility]) ALT/SGPT 17 U/L 12-78 ALT/SGPT [place] ([facility]) AST/SGOT 11 U/L 7-37 AST/SGOT [place] ([facility]) alkaline phosphatase 95 U/L 45-117 Alkaline Phosph atase [place] ([facility]) bilirubin,total 0.3 mg/dL 0.2-1.0 Bilirubin,total AT[facility] ([facility]) albumin 3.9 gm/dL 3.2-5.2 Albumin [place] ([facility]) albumin/globulin ratio 1.2-2.2 Below low normal Albumin /globulin Ratio [facility] ([facility]) ID Date Data Source [id number] 08/08/2020 10:55:00 AM EDT [place] ([facility]) Name Value Range Interpretation Code Description Data Alia rce(s) Supporting Document(s) white blood count 7.1 10 4.0-10.0 White Blood Count [place] ([facility]) red blood count 4.60 10 4.00-5.40 Red Blood Count [facility] ([facility]) hemoglobin 14.7 g/dL 12.0-15.5 Hemoglobin [place] ([facility]) hematocrit 42.2 % 36.0-47.0 Hematocrit [place] ([facility]) mean corpuscular volume 91.7 fL 80.0-96.0 Mean Corpusc ular Volume [place] ([facility]) mean corpuscular HGB conc 34.8 g/dL 32.0-36.5 Mean Corpu scular HGB Conc [place] ([facility]) mean corpuscular hemoglobin 32.0 pg 27.0-33.0 Mean Cor puscular Hemoglobin [place] ([facility]) platelet count, automated 316 10 150-450 Platelet C ount, Automated [place] ([facility]) neutrophils % 41.8 % 36.0-66.0 Neutrophils % [place] ( [facility]) lymph % 46.0 % 24.0-44.0 Above high normal Lymph % [place] ([facility]) red cell distribution width 12.9 % 11.5-14.5 Red Cell Distribution Width [place] ([facility]) mono % 6.8 % 2.0-8.0 [place] % [place] ([facility]) baso % 1.1 % 0.0-1.0 Above high normal Baso % [place] ([facility]) immature granulocyte % 0.3 % 0-3.0 Immature Gran ulocyte % [place] ([facility]) eos % 4.0 % 0.0-3.0 Above high normal Eos % [place] ([facility]) nucleated red blood cell % 0.0 % 0-0 Nucleated Red Blood Cell % [place] ([facility]) lymph # 3.3 10 1.5-5.0 Lymph # [place] ([facility]) neutrophils # 3.0 10 1.5-8.5 Neutrophils # [place] ( [facility]) eos # 0.3 10 0.0-0.5 Eos # [place] ([facility]) mono # 0.5 10 0.0-0.8 [place] # [place] ([facility]) baso # 0.1 10 0.0-0.2 Baso # [place] ([facility]) ID Date Data Source [id number] 08/08/2020 10:55:00 AM EDT [place] ([facility]) Name Value Range Interpretation Code Description Data Alia rce(s) Supporting Document(s) triglycerides level 126 mg/dL <150 Triglycerides Le dalila [place] ([facility]) non-HDL-C 173 mg/dL Non-hdl-c [place] ([facility]) cholesterol level 233 mg/dL <200 Above high normal Cholesterol Level [place] ([facility]) Cholesterol in LDL [Mass/volume] in Serum or Plasma 148 mg/dL <100 Above high normal LDL Cholesterol [place] ([facility]) HDL cholesterol 60 mg/dL >40 HDL Cholesterol AT[facility] ([facility]) cholesterol risk ratio <5 Cholesterol R isk Ratio [place] ([facility]) ID Date Data Source [id number] 08/08/2020 10:55:00 AM EDT [place] ([facility]) Name Value Range Interpretation Code Description Data Alia rce(s) Supporting Document(s) glucose, fasting 96 mg/dL 70-100 Glucose, Fasting AT [facility]) blood urea nitrogen 12 mg/dL 7-18 Blood Urea Nitro gen [place] ([facility]) creatinine for GFR 0.90 mg/dL 0.55-1.30 Creatinine for GF R [place] ([facility]) glomerular filtration rate > 60.0 >58 Glomerula r Filtration Rate [place] ([facility]) sodium level 137 mEq/L 136-145 Sodium Level [place] (No [facility]) chloride level 105 mEq/L 98-107 Chloride Level [place] ([facility]) potassium serum 4.5 mEq/L 3.5-5.1 Potassium Serum ATHE NA ([facility]) carbon dioxide level 27 mEq/L 21-32 Carbon Dioxide Level [place] ([facility]) anion gap 5 mEq/L 8-16 Below low normal Anion Gap [place] ( [facility]) calcium level 9.7 mg/dL 8.5-10.1 Calcium Level [place] ( [facility]) AST/SGOT 11 U/L 7-37 AST/SGOT [place] ([facility]) total protein 7.3 gm/dL 6.4-8.2 Total Protein [place] ( [facility]) alkaline phosphatase 95 U/L 45-117 Alkaline Phosph atase [place] ([facility]) bilirubin,total 0.3 mg/dL 0.2-1.0 Bilirubin,total ATHE NA ([facility]) ALT/SGPT 17 U/L 12-78 ALT/SGPT [place] ([facility]) albumin 3.9 gm/dL 3.2-5.2 Albumin [place] ([facility]) albumin/globulin ratio 1.2-2.2 Below low normal Albumin /globulin Ratio [place] ([facility]) ID Date Data Source [id number] 08/08/2020 10:55:00 AM EDT [place] ([facility]) Name Value Range Interpretation Code Description Data Alia rce(s) Supporting Document(s) white blood count 7.1 10 4.0-10.0 White Blood Count [place] ([facility]) red blood count 4.60 10 4.00-5.40 Red Blood Count ATHE NA ([facility]) hematocrit 42.2 % 36.0-47.0 Hematocrit [place] ([facility]) mean corpuscular volume 91.7 fL 80.0-96.0 Mean Corpusc ular Volume [place] ([facility]) hemoglobin 14.7 g/dL 12.0-15.5 Hemoglobin [place] ([facility]) red cell distribution width 12.9 % 11.5-14.5 Red Cell Distribution Width [place] ([facility]) mean corpuscular hemoglobin 32.0 pg 27.0-33.0 Mean Cor puscular Hemoglobin [place] ([facility]) mean corpuscular HGB conc 34.8 g/dL 32.0-36.5 Mean Corpu scular HGB Conc [place] ([facility]) neutrophils % 41.8 % 36.0-66.0 Neutrophils % [place] ( [facility]) lymph % 46.0 % 24.0-44.0 Above high normal Lymph % [place] ([facility]) platelet count, automated 316 10 150-450 Platelet C ount, Automated [place] ([facility]) mono % 6.8 % 2.0-8.0 [place] % [place] ([facility]) immature granulocyte % 0.3 % 0-3.0 Immature Gran ulocyte % [place] ([facility]) eos % 4.0 % 0.0-3.0 Above high normal Eos % [place] ([facility]) baso % 1.1 % 0.0-1.0 Above high normal Baso % [place] ([facility]) nucleated red blood cell % 0.0 % 0-0 Nucleated Red Blood Cell % [place] ([facility]) lymph # 3.3 10 1.5-5.0 Lymph # [place] ([facility]) neutrophils # 3.0 10 1.5-8.5 Neutrophils # [place] ( [facility]) baso # 0.1 10 0.0-0.2 Baso # [place] ([facility]) mono # 0.5 10 0.0-0.8 [place] # [place] ([facility]) eos # 0.3 10 0.0-0.5 Eos # [place] ([facility]) ID Date Data Source [id number] 08/08/2020 10:55:00 AM EDT [place] ([facility]) Name Value Range Interpretation Code Description Data Alia rce(s) Supporting Document(s) triglycerides level 126 mg/dL <150 Triglycerides Le dalila [place] ([facility]) cholesterol level 233 mg/dL <200 Above high normal Cholesterol Level [place] ([facility]) Cholesterol in LDL [Mass/volume] in Serum or Plasma 148 mg/dL <100 Above high normal LDL Cholesterol [facility] ([facility]) non-HDL-C 173 mg/dL Non-hdl-c [place] ([facility]) HDL cholesterol 60 mg/dL >40 HDL Cholesterol ATHE NA ([facility]) cholesterol risk ratio <5 Cholesterol R isk Ratio [place] ([facility]) ID Date Data Source [id number] 08/08/2020 10:55:00 AM EDT [place] ([facility]) Name Value Range Interpretation Code Description Data Alia rce(s) Supporting Document(s) glucose, fasting 96 mg/dL 70-100 Glucose, Fasting AT [facility] ([facility]) creatinine for GFR 0.90 mg/dL 0.55-1.30 Creatinine for GF R [place] ([facility]) blood urea nitrogen 12 mg/dL 7-18 Blood Urea Nitro gen [place] ([facility]) potassium serum 4.5 mEq/L 3.5-5.1 Potassium Serum [facility] ([facility]) glomerular filtration rate > 60.0 >58 Glomerula r Filtration Rate [place] ([facility]) chloride level 105 mEq/L 98-107 Chloride Level [place] ([facility]) sodium level 137 mEq/L 136-145 Sodium Level [facility] ([facility]) calcium level 9.7 mg/dL 8.5-10.1 Calcium Level [place] ( [facility]) carbon dioxide level 27 mEq/L 21-32 Carbon Dioxide Level [place] ([facility]) anion gap 5 mEq/L 8-16 Below low normal Anion Gap [place] ( [facility]) AST/SGOT 11 U/L 7-37 AST/SGOT [place] ([facility]) total protein 7.3 gm/dL 6.4-8.2 Total Protein [place] ( [facility]) alkaline phosphatase 95 U/L 45-117 Alkaline Phosph atase [place] ([facility]) ALT/SGPT 17 U/L 12-78 ALT/SGPT [place] ([facility]) bilirubin,total 0.3 mg/dL 0.2-1.0 Bilirubin,total [facility] ([facility]) albumin/globulin ratio 1.2-2.2 Below low normal Albumin /globulin Ratio [place] ([facility]) albumin 3.9 gm/dL 3.2-5.2 Albumin [place] ([facility]) ID Date Data Source [id number] 08/08/2020 10:55:00 AM EDT [place] ([facility]) Name Value Range Interpretation Code Description Data Alia rce(s) Supporting Document(s) white blood count 7.1 10 4.0-10.0 White Blood Count [place] ([facility]) red blood count 4.60 10 4.00-5.40 Red Blood Count ATHE NA ([facility]) hematocrit 42.2 % 36.0-47.0 Hematocrit [place] ([facility]) hemoglobin 14.7 g/dL 12.0-15.5 Hemoglobin [place] ([facility]) red cell distribution width 12.9 % 11.5-14.5 Red Cell Distribution Width [place] ([facility]) mean corpuscular HGB conc 34.8 g/dL 32.0-36.5 Mean Corpu scular HGB Conc [place] ([facility]) mean corpuscular volume 91.7 fL 80.0-96.0 Mean Corpusc ular Volume [place] ([facility]) mean corpuscular hemoglobin 32.0 pg 27.0-33.0 Mean Cor puscular Hemoglobin [place] ([facility]) lymph % 46.0 % 24.0-44.0 Above high normal Lymph % [place] ([facility]) neutrophils % 41.8 % 36.0-66.0 Neutrophils % [place] ( [facility]) platelet count, automated 316 10 150-450 Platelet C ount, Automated [place] ([facility]) baso % 1.1 % 0.0-1.0 Above high normal Baso % [place] ([facility]) mono % 6.8 % 2.0-8.0 [place] % [place] ([facility]) eos % 4.0 % 0.0-3.0 Above high normal Eos % [place] ([facility]) nucleated red blood cell % 0.0 % 0-0 Nucleated Red Blood Cell % [place] ([facility]) lymph # 3.3 10 1.5-5.0 Lymph # [place] ([facility]) immature granulocyte % 0.3 % 0-3.0 Immature Gran ulocyte % [place] ([facility]) neutrophils # 3.0 10 1.5-8.5 Neutrophils # [place] ( [facility]) eos # 0.3 10 0.0-0.5 Eos # [place] ([facility]) mono # 0.5 10 0.0-0.8 [place] # [place] ([facility]) baso # 0.1 10 0.0-0.2 Baso # [place] ([facility]) ID Date Data Source [id number] 08/08/2020 10:55:00 AM EDT [place] ([facility]) Name Value Range Interpretation Code Description Data Alia rce(s) Supporting Document(s) triglycerides level 126 mg/dL <150 Triglycerides Le dalila [place] ([facility]) cholesterol level 233 mg/dL <200 Above high normal Cholesterol Level [place] ([facility]) cholesterol risk ratio <5 Cholesterol R isk Ratio [place] ([facility]) non-HDL-C 173 mg/dL Non-hdl-c [place] ([facility]) Cholesterol in LDL [Mass/volume] in Serum or Plasma 148 mg/dL <100 Above high normal LDL Cholesterol [facility] ([facility]) HDL cholesterol 60 mg/dL >40 HDL Cholesterol ATHE NA ([facility]) ID Date Data Source [id number] 08/08/2020 10:55:00 AM EDT [place] ([facility]) Name Value Range Interpretation Code Description Data Alia rce(s) Supporting Document(s) glucose, fasting 96 mg/dL 70-100 Glucose, Fasting AT [facility] ([facility]) blood urea nitrogen 12 mg/dL 7-18 Blood Urea Nitro gen [place] ([facility]) glomerular filtration rate > 60.0 >58 Glomerula r Filtration Rate [place] ([facility]) sodium level 137 mEq/L 136-145 Sodium Level [place] (No [facility]) creatinine for GFR 0.90 mg/dL 0.55-1.30 Creatinine for GF R [place] ([facility]) anion gap 5 mEq/L 8-16 Below low normal Anion Gap [place] ( [facility]) potassium serum 4.5 mEq/L 3.5-5.1 Potassium Serum ATHE NA ([facility]) chloride level 105 mEq/L 98-107 Chloride Level [place] ([facility]) carbon dioxide level 27 mEq/L 21-32 Carbon Dioxide Level [place] ([facility]) calcium level 9.7 mg/dL 8.5-10.1 Calcium Level [place] ( [facility]) alkaline phosphatase 95 U/L 45-117 Alkaline Phosph atase [place] ([facility]) AST/SGOT 11 U/L 7-37 AST/SGOT [place] ([facility]) ALT/SGPT 17 U/L 12-78 ALT/SGPT [place] ([facility]) total protein 7.3 gm/dL 6.4-8.2 Total Protein [place] ( [facility]) bilirubin,total 0.3 mg/dL 0.2-1.0 Bilirubin,total ATHE NA ([facility]) albumin 3.9 gm/dL 3.2-5.2 Albumin [place] ([facility]) albumin/globulin ratio 1.2-2.2 Below low normal Albumin /globulin Ratio [place] ([facility]) ID Date Data Source [id number] 08/08/2020 10:55:00 AM EDT [place] ([facility]) Name Value Range Interpretation Code Description Data Alia rce(s) Supporting Document(s) white blood count 7.1 10 4.0-10.0 White Blood Count [place] ([facility]) hemoglobin 14.7 g/dL 12.0-15.5 Hemoglobin [place] ([facility]) red blood count 4.60 10 4.00-5.40 Red Blood Count [facility] ([facility]) hematocrit 42.2 % 36.0-47.0 Hematocrit [place] ([facility]) mean corpuscular volume 91.7 fL 80.0-96.0 Mean Corpusc ular Volume [place] ([facility]) mean corpuscular hemoglobin 32.0 pg 27.0-33.0 Mean Cor puscular Hemoglobin [place] ([facility]) mean corpuscular HGB conc 34.8 g/dL 32.0-36.5 Mean Corpu scular HGB Conc [place] ([facility]) red cell distribution width 12.9 % 11.5-14.5 Red Cell Distribution Width [place] ([facility]) platelet count, automated 316 10 150-450 Platelet C ount, Automated [place] ([facility]) neutrophils % 41.8 % 36.0-66.0 Neutrophils % [place] ( [facility]) lymph % 46.0 % 24.0-44.0 Above high normal Lymph % [place] ([facility]) eos % 4.0 % 0.0-3.0 Above high normal Eos % [place] ([facility]) baso % 1.1 % 0.0-1.0 Above high normal Baso % [place] ([facility]) mono % 6.8 % 2.0-8.0 [place] % [place] ([facility]) nucleated red blood cell % 0.0 % 0-0 Nucleated Red Blood Cell % [place] ([facility]) immature granulocyte % 0.3 % 0-3.0 Immature Gran ulocyte % [place] ([facility]) neutrophils # 3.0 10 1.5-8.5 Neutrophils # [place] ( [facility]) lymph # 3.3 10 1.5-5.0 Lymph # [place] ([facility]) eos # 0.3 10 0.0-0.5 Eos # [place] ([facility]) baso # 0.1 10 0.0-0.2 Baso # [place] ([facility]) mono # 0.5 10 0.0-0.8 [place] # [place] ([facility]) ID Date Data Source [id number] 08/08/2020 10:55:00 AM EDT [place] ([facility]) Name Value Range Interpretation Code Description Data Alia rce(s) Supporting Document(s) triglycerides level 126 mg/dL <150 Triglycerides Le dalila [place] ([facility]) cholesterol level 233 mg/dL <200 Above high normal Cholesterol Level [place] ([facility]) HDL cholesterol 60 mg/dL >40 HDL Cholesterol AT[facility] ([facility]) Cholesterol in LDL [Mass/volume] in Serum or Plasma 148 mg/dL <100 Above high normal LDL Cholesterol [facility] ([facility]) non-HDL-C 173 mg/dL Non-hdl-c [place] ([facility]) cholesterol risk ratio <5 Cholesterol R isk Ratio [place] ([facility]) ID Date Data Source [id number] 08/08/2020 10:55:00 AM EDT [place] ([facility]) Name Value Range Interpretation Code Description Data Alia rce(s) Supporting Document(s) blood urea nitrogen 12 mg/dL 7-18 Blood Urea Nitro gen [place] ([facility]) glucose, fasting 96 mg/dL 70-100 Glucose, Fasting AT [facility]) sodium level 137 mEq/L 136-145 Sodium Level [place] (No [facility]) glomerular filtration rate > 60.0 >58 Glomerula r Filtration Rate [place] ([facility]) creatinine for GFR 0.90 mg/dL 0.55-1.30 Creatinine for GF R [place] ([facility]) potassium serum 4.5 mEq/L 3.5-5.1 Potassium Serum ATHE NA ([facility]) chloride level 105 mEq/L 98-107 Chloride Level [place] ([facility]) anion gap 5 mEq/L 8-16 Below low normal Anion Gap [place] ( [facility]) carbon dioxide level 27 mEq/L 21-32 Carbon Dioxide Level [place] ([facility]) calcium level 9.7 mg/dL 8.5-10.1 Calcium Level [place] ( [facility]) ALT/SGPT 17 U/L 12-78 ALT/SGPT [place] ([facility]) total protein 7.3 gm/dL 6.4-8.2 Total Protein [place] ( [facility]) alkaline phosphatase 95 U/L 45-117 Alkaline Phosph atase [place] ([facility]) bilirubin,total 0.3 mg/dL 0.2-1.0 Bilirubin,total ATHE NA ([facility]) AST/SGOT 11 U/L 7-37 AST/SGOT [place] ([facility]) albumin 3.9 gm/dL 3.2-5.2 Albumin [place] ([facility]) albumin/globulin ratio 1.2-2.2 Below low normal Albumin /globulin Ratio CARLEEN ([facility]) ID Date Data Source [id number] 08/08/2020 10:55:00 AM EDT CARLEEN ([facility]) Name Value Range Interpretation Code Description Data Alia rce(s) Supporting Document(s) white blood count 7.1 10 4.0-10.0 White Blood Count CARLEEN ([facility]) hemoglobin 14.7 g/dL 12.0-15.5 Hemoglobin CARLEEN ([facility]) red blood count 4.60 10 4.00-5.40 Red Blood Count ATHE ([facility]) hematocrit 42.2 % 36.0-47.0 Hematocrit CARLEEN ([facility]) mean corpuscular HGB conc 34.8 g/dL 32.0-36.5 Mean Corpu scular HGB Conc CARLEEN ([facility]) mean corpuscular hemoglobin 32.0 pg 27.0-33.0 Mean Cor puscular Hemoglobin CARLEEN ([facility]) red cell distribution width 12.9 % 11.5-14.5 Red Cell Distribution Width CARLEEN ([facility]) mean corpuscular volume 91.7 fL 80.0-96.0 Mean Corpusc ular Volume CARLEEN ([facility]) lymph % 46.0 % 24.0-44.0 Above high normal Lymph % CARLEEN ([facility]) neutrophils % 41.8 % 36.0-66.0 Neutrophils % CARLEEN ( [facility]) platelet count, automated 316 10 150-450 Platelet C ount, Automated CAR[place]EN ([facility]) immature granulocyte % 0.3 % 0-3.0 Immature Gran ulocyte % [place] ([facility]) mono % 6.8 % 2.0-8.0 [place] % [place] ([facility]) eos % 4.0 % 0.0-3.0 Above high normal Eos % [place] ([facility]) baso % 1.1 % 0.0-1.0 Above high normal Baso % [place] ([facility]) neutrophils # 3.0 10 1.5-8.5 Neutrophils # CAR[place]EN ( [facility]) mono # 0.5 10 0.0-0.8 Thayer # [place] ([facility]) nucleated red blood cell % 0.0 % 0-0 Nucleated Red Blood Cell % [place] ([facility]) lymph # 3.3 10 1.5-5.0 Lymph # [place] ([facility]) eos # 0.3 10 0.0-0.5 Eos # [place] ([facility]) baso # 0.1 10 0.0-0.2 Baso # [place] ([facility]) ID Date Data Source [id number] 07/31/2020 10:19:00 AM EDT [facility]) Name Value Range Interpretation Code Description Data Alia rce(s) Supporting Document(s) sars-cov-2 negative negative Sars-cov-2 [place] ([facility]) ID Date Data Source [id number] 07/31/2020 10:19:00 AM EDT [place] ([facility]) Name Value Range Interpretation Code Description Data Alia rce(s) Supporting Document(s) sars-cov-2 negative negative Sars-cov-2 [facility]) ID Date Data Source [id number] 07/31/2020 10:19:00 AM EDT [facility]) Name Value Range Interpretation Code Description Data Alia rce(s) Supporting Document(s) sars-cov-2 negative negative Sars-cov-2 [place] ([facility]) ID Date Data Source [id number] 07/31/2020 10:19:00 AM EDT [facility]) Name Value Range Interpretation Code Description Data Alia rce(s) Supporting Document(s) sars-cov-2 negative negative Sars-cov-2 [facility]) ID Date Data Source [id number] 07/31/2020 10:19:00 AM EDT [facility]) Name Value Range Interpretation Code Description Data Alia rce(s) Supporting Document(s) sars-cov-2 negative negative Sars-cov-2 [facility]) ID Date Data Source [id number] 07/31/2020 10:19:00 AM EDT [facility]) Name Value Range Interpretation Code Description Data Alia rce(s) Supporting Document(s) sars-cov-2 negative negative Sars-cov-2 [facility]) ID Date Data Source [id number] 07/31/2020 10:19:00 AM EDT [facility]) Name Value Range Interpretation Code Description Data Alia rce(s) Supporting Document(s) sars-cov-2 negative negative Sars-cov-2 [facility]) ID Date Data Source [id number] 07/31/2020 10:19:00 AM EDT [facility]) Name Value Range Interpretation Code Description Data Alia rce(s) Supporting Document(s) sars-cov-2 negative negative Sars-cov-2 [facility]) ID Date Data Source [id number] 07/31/2020 09:12:00 AM EDT [facility] Name Value Range Interpretation Code Description Data Alia rce(s) Supporting Document(s) SARS coronavirus 2 RdRp gene [Presence] in Respiratory specimen by BURT with probe detection Not [facility] ordered by [facility] and reported by [facility]. ID Date Data Source [id number] 06/20/2020 03:11:00 PM EST MEDENT ([facility], ) Name Value Range Interpretation Code Description Data Alia rce(s) Supporting Document(s) PDFReport Laboratory test result MEDENT ([facility], ) FVC-Pre 2.79 L MEDENT ([facility], ) FVC-Pred 2.75 L MEDENT ([facility], ) FVC-%Pred-Pre 101 L MEDENT ([facility], ) Fev1-Pred 2.20 L MEDENT ([facility], ) FVC-LLN 2.20 L MEDENT ([facility], ) Fev1-Pre 1.61 L MEDENT ([facility]) Fev1-LLN 1.74 L MEDENT ([facility], ) Fev6-Pred 2.68 L MEDENT ([facility], ) Fev1-%Pred-Pre 73 L MEDENT ([facility], ) Fev6-%Pred-Pre 104 L MEDENT ([facility], ) Fev6-LLN 2.14 L MEDENT ([facility], ) Fev6-Pre 2.79 L MEDENT ([facility]) Orc0kdv-%Pred-Pre 71 % MEDENT ([facility], ) Thn1xzw-Wejv 80 % MEDENT ([facility]) Bwb0pdr-Gaa 58 % MEDENT ([facility]) Aci4oho-Fjb 100 % MEDENT ([facility]) Awo6wev-CQA 71 % MEDENT ([facility], ) Odg4ilo-Invo 98 % MEDENT ([facility], ) Adt2dch-%Pred-Pre 102 % MEDENT ([facility], ) FEFMax-Pred 5.75 L/E/sec MEDENT ([facility]) FEFMax-Pre 3.75 L/E/sec MEDENT ([facility]) FEFMax-LLN 4.39 L/E/sec MEDENT ([facility]) FEFMax-%Pred-Pre 65 L/E/sec MEDENT ([facility]) Vxi2112-Yiz 0.74 L/E/sec MEDENT ([facility]) Vvn5855-Joiu 2.42 L/E/sec MEDENT ([facility]) Hjx2494-%Pred-Pre 30 L/E/sec MEDENT ([facility]) Qgq9125-NHO 1.43 L/E/sec MED[facility] ([facility]) Lrk4hdb3-Ormt 82 % MEDENT ([facility]) ExpTime-Pre 6.23 sec MEDENT ([facility]) Dab0zgx8-%Pred-Pre 69 % MEDENT ([facility]) Wjk6tgl2-Sdg 58 % MEDENT ([facility]) Lag6czi0-KNT 74 % MED[facility] ([facility]) ID Date Data Source [id number] 02/13/2020 10:44:24 AM EDT [facility] In-House Blood TestsDate/Time Colle cted: February 13, 2020 9:49 AMTest Result Reference Range Normal ValueComments: Blood drawn in office from left AC, tolerated Ceyc Nunes MA, February 13, 2020 10:45 AMAssessment & Plan Orders:[id number] Vst-Est Level I [CPT-32342] [id number] - Venipuncture [CPT-38468] Name Value Range Interpretation Code Description Data Alia rce(s) Supporting Document(s) ID Date Data Source [id number] 02/13/2020 09:49:00 AM EDT [facility] Name Value Range Interpretation Code Description Data Alia rce(s) Supporting Document(s) HCT 43.1 % 36.0-47.0 N [facility] HGB 15.1 g/dL 12.0-15.5 N [facility] MCH 35.0 G/DL pg 32.0-36.5 N [facility] MCHC 32.5 PG % 27.0-33.0 N [facility] PLATELETS 333 10 10*3/mm3 150-450 N [facility] RBC 4.65 10 10*6/mm3 4.00-5.40 N [facility] RDW 12.6 % 11.5-14.5 N [facility] WBC TOTAL 8.2 4.0-10.0 N [facility] ID Date Data Source [id number] 02/13/2020 09:49:00 AM EDT [facility] Name Value Range Interpretation Code Description Data Alia rce(s) Supporting Document(s) VIT D25 TOT 30.5 ng/mL 30.0-100.0 N [facility] BG FASTING 84 mg/dL 70-100 N [facility] Procedure Social History Code Duration Value Status Description Data Source(s ) Smoking 02/27/2021 12:00:00 AM EDT Patient is a former smoker completed Patient is a former smoker JANELLE ([facility], ) Vital Signs ID Date Data Source [id number] Name Value Range Interpretation Code Description Data Source(s) Heart rate 78 /min 78 /min JANELLE ([facility], ) Systolic blood pressure 145 mm[facility]Hg] 145 [facility]Hg[facility] Body weight 102.50 [lb_av] 102.50 [lb_av] MEDEN T ([facility]) [place] body weight 100 [lb_av] 100 [lb_av] MEDEN T ([facility]) Body weight 46.494 kg 46.494 kg [facility] ([facility]) Diastolic blood pressure 84 mm[Hg] 84 mm[Hg] [facility] ([facility]) Body mass index (BMI) [Ratio] 20.7 kg/m2 20.7 k g/m2 [facility] ([facility]) Body surface area Derived from formula 1.39 m2 1.39 m2 [facility] ([facility]) Body temperature 98.2 [degF] 98.2 [degF] [facility] ([facility]) Body height 59 [in_i] 59 [in_i] [facility] ([facility]) 4'11" Body height 57 [in_i] 57 [in_i] [facility] ([facility]) 4'9" Systolic blood pressure 122 mm[Hg] 122 mm[facility]Hg] [facility] Respiratory rate 18 /min 18 /min [facility] ( [facility]) Body surface area Derived from formula 1.35 m2 1.35 m2 [facility] ([facility]) [place] body weight 100 [lb_av] 100 [lb_av] [facility] Oxygen saturation in Arterial blood by Pulse oximetry 94 % 94 % [facility] ([facility]) Body weight 101.50 [lb_av] 101.50 [lb_av] MEDEN T ([facility]) Body mass index (BMI) [Ratio] 22.0 kg/m2 22.0 k g/m2 [facility] ([facility]) Body weight 46.040 kg 46.040 kg [facility] ([facility]) Diastolic blood pressure 82 mm[Hg] 82 mm[Hg] [facility] ([facility]) Heart rate 74 /min 74 /min [facility] ([facility]) Diastolic blood pressure 72 mm[Hg] 72 mm[Hg] CARLEEN ([facility]) Body height 62 [in_i] 62 [in_i] [place] ([facility]) Body mass index (BMI) [Ratio] 18.3 kg/m2 18.3 k g/m2 [place] ([facility]) Systolic blood pressure 116 mm[Hg] 116 mm[Hg] A THENA ([facility]) Body weight 1604 [oz_av] 1604 [oz_av] [place]EN ([facility]) Body temperature 99.6 [degF] 99.6 [degF] MEDENT ([facility]) Body weight 101.00 [lb_av] 101.00 [lb_av] MEDEN T ([facility], [facility]) Systolic blood pressure 113 mm[Hg] 113 mm[Hg] M EDENT ([facility], [facility]) Diastolic blood pressure 82 mm[Hg] 82 mm[Hg] MEDENT ([facility], [facility]) Heart rate 123 /min 123 /min MEDENT ([facility], [facility]) Respiratory rate 22 /min 22 /min MEDENT ( [facility], [facility]) Oxygen saturation in Arterial blood by Pulse oximetry 92 % 92 % MEDENT ([facility], [facility]) Body height 57 [in_i] 57 [in_i] MEDENT ([facility], [facility]) 4'9" Body mass index (BMI) [Ratio] 21.9 kg/m2 21.9 k g/m2 MEDENT ([facility], [facility]) Body height 62 [in_i] 62 [in_i] CARLEEN ([facility]) Body height 62 [in_i] 62 [in_i] [place] ([facility]) Body height 62 [in_i] 62 [in_i] [place] ([facility]) Body height 62 [in_i] 62 [in_i] [place] ([facility]) Body height 62 [in_i] 62 [in_i] [place] ([facility]) Body height 62 [in_i] 62 [in_i] [place] ([facility]) Body height 62 [in_i] 62 [in_i] [place] ([facility]) Body height 62 [in_i] 62 [in_i] [place] ([facility]) Body height 62 [in_i] 62 [in_i] [place] ([facility]) Diastolic blood pressure 80 mm[Hg] 80 mm[Hg] CAR[place] ([facility]) Body height 62 [in_i] 62 [in_i] [place] ([facility]) Body mass index (BMI) [Ratio] 18.8 kg/m2 18.8 k g/m2 [place] ([facility]) Systolic blood pressure 123 mm[Hg] 123 mm[Hg] A THENA ([facility]) Body weight 103 [lb_av] 103 [lb_av] [place] ([facility]) Diastolic blood pressure 80 mm[Hg] 80 mm[Hg] [place] ([facility]) Body mass index (BMI) [Ratio] 18.8 kg/m2 18.8 k g/m2 [facility] ([facility]) Systolic blood pressure 123 mm[Hg] 123 mm[Hg] A THENA ([facility]) Diastolic blood pressure 80 mm[Hg] 80 mm[Hg] [place] ([facility]) Body height 62 [in_i] 62 [in_i] [place] ([facility]) Body weight 103 [lb_av] 103 [lb_av] [place] ([facility]) Body height 62 [in_i] 62 [in_i] [place] ([facility]) Body mass index (BMI) [Ratio] 18.8 kg/m2 18.8 k g/m2 [place] ([facility]) Systolic blood pressure 123 mm[Hg] 123 mm[Hg] A THENA ([facility]) Body weight 103 [lb_av] 103 [lb_av] [place] ([facility]) Diastolic blood pressure 72 mm[Hg] 72 mm[Hg] [place] ([facility]) Body height 62 [in_i] 62 [in_i] [place] ([facility]) Systolic blood pressure 105 mm[Hg] 105 mm[Hg] A THE[place] ([facility]) Diastolic blood pressure 72 mm[Hg] 72 mm[Hg] [place] ([facility]) Body height 62 [in_i] 62 [in_i] [place] ([facility]) Systolic blood pressure 105 mm[Hg] 105 mm[Hg] A [place] ([facility]) Diastolic blood pressure 72 mm[Hg] 72 mm[Hg] [place] ([facility]) Body height 62 [in_i] 62 [in_i] [place] ([facility]) Systolic blood pressure 105 mm[Hg] 105 mm[Hg] A [place] ([facility]) Diastolic blood pressure 72 mm[Hg] 72 mm[Hg] [place] ([facility]) Body height 62 [in_i] 62 [in_i] [place] ([facility]) Systolic blood pressure 105 mm[Hg] 105 mm[Hg] A [place] ([facility]) Diastolic blood pressure 72 mm[Hg] 72 mm[Hg] [place] ([facility]) Body height 62 [in_i] 62 [in_i] [place] ([facility]) Systolic blood pressure 105 mm[Hg] 105 mm[Hg] A [place] ([facility]) Diastolic blood pressure 87 mm[Hg] 87 mm[Hg] [place] ([facility]) Diastolic blood pressure 87 mm[Hg] 87 mm[Hg] [place] ([facility]) Body height 62 [in_i] 62 [in_i] [place] ([facility]) Body mass index (BMI) [Ratio] 18.9 kg/m2 18.9 k g/m2 [place] ([facility]) Systolic blood pressure 138 mm[Hg] 138 mm[Hg] A THENA ([facility]) Body weight 103.5 [lb_av] 103.5 [lb_av] [place] ([facility]) Diastolic blood pressure 87 mm[Hg] 87 mm[Hg] [place] ([facility]) Body height 62 [in_i] 62 [in_i] [place] ([facility]) Body mass index (BMI) [Ratio] 18.9 kg/m2 18.9 k g/m2 CAR[place] ([facility]) Systolic blood pressure 138 mm[Hg] 138 mm[Hg] A THENA ([facility]) Body weight 103.5 [lb_av] 103.5 [lb_av] CAR[place]EN ([facility]) Body weight 103.5 [lb_av] 103.5 [lb_av] CAR[place]EN ([facility]) Body height 62 [in_i] 62 [in_i] [place] ([facility]) Body mass index (BMI) [Ratio] 18.9 kg/m2 18.9 k g/m2 CAR[place] ([facility]) Systolic blood pressure 138 mm[Hg] 138 mm[Hg] A THENA ([facility]) Diastolic blood pressure 87 mm[Hg] 87 mm[Hg] CAR[place]EN ([facility]) Body height 62 [in_i] 62 [in_i] CAR[place]EN ([facility]) Body mass index (BMI) [Ratio] 18.9 kg/m2 18.9 k g/m2 CAR[place]EN ([facility]) Systolic blood pressure 138 mm[Hg] 138 mm[Hg] A THENA ([facility]) Body weight 103.5 [lb_av] 103.5 [lb_av] CAR[place]EN ([facility]) Diastolic blood pressure 87 mm[Hg] 87 mm[Hg] CAR[place]EN ([facility]) Body height 62 [in_i] 62 [in_i] CAR[place] ([facility]) Body mass index (BMI) [Ratio] 18.9 kg/m2 18.9 k g/m2 [facility] ([facility]) Systolic blood pressure 138 mm[Hg] 138 mm[Hg] A THENA ([facility]) Body weight 103.5 [lb_av] 103.5 [lb_av] [place] ([facility]) Diastolic blood pressure 87 mm[Hg] 87 mm[Hg] [place] ([facility]) Body height 62 [in_i] 62 [in_i] [place] ([facility]) Body mass index (BMI) [Ratio] 18.9 kg/m2 18.9 k g/m2 [place] ([facility]) Systolic blood pressure 138 mm[Hg] 138 mm[Hg] A THENA ([facility]) Body weight 103.5 [lb_av] 103.5 [lb_av] [place] ([facility]) Diastolic blood pressure 87 mm[Hg] 87 mm[Hg] [place] ([facility]) Body height 62 [in_i] 62 [in_i] [place] ([facility]) Body mass index (BMI) [Ratio] 18.9 kg/m2 18.9 k g/m2 [place] ([facility]) Systolic blood pressure 138 mm[Hg] 138 mm[Hg] A THENA ([facility]) Body weight 103.5 [lb_av] 103.5 [lb_av] [place] ([facility]) Diastolic blood pressure 87 mm[Hg] 87 mm[Hg] [place] ([facility]) Body height 62 [in_i] 62 [in_i] [place] ([facility]) Body mass index (BMI) [Ratio] 18.9 kg/m2 18.9 k g/m2 [place] ([facility]) Systolic blood pressure 138 mm[Hg] 138 mm[Hg] A THENA ([facility]) Body weight 103.5 [lb_av] 103.5 [lb_av] [place] ([facility]) Diastolic blood pressure 87 mm[Hg] 87 mm[Hg] [place] ([facility]) Body height 62 [in_i] 62 [in_i] [place] ([facility]) Body mass index (BMI) [Ratio] 18.9 kg/m2 18.9 k g/m2 [place] ([facility]) Systolic blood pressure 138 mm[Hg] 138 mm[Hg] A THENA ([facility]) Body weight 103.5 [lb_av] 103.5 [lb_av] [place] ([facility]) Body height 62 [in_i] 62 [in_i] [place] ([facility]) Body height 62 [in_i] 62 [in_i] [place] ([facility]) Body height 62 [in_i] 62 [in_i] [place] ([facility]) Body height 62 [in_i] 62 [in_i] [place] ([facility]) Body height 62 [in_i] 62 [in_i] [place] ([facility]) Body height 62 [in_i] 62 [in_i] [place] ([facility]) Body height 62 [in_i] 62 [in_i] [place] ([facility]) Body height 62 [in_i] 62 [in_i] [place] ([facility]) Body height 62 [in_i] 62 [in_i] [place] ([facility]) Body height 62 [in_i] 62 [in_i] [place] ([facility]) Body height 62 [in_i] 62 [in_i] [place] ([facility]) Body height 62 [in_i] 62 [in_i] [place] ([facility]) Body height 62 [in_i] 62 [in_i] CAR[place]EN ([facility]) Oxygen saturation in Arterial blood by [facility]ulse oximetry 94 % 94 % [facility] Body height 57 [in_i] 57 [in_i] [facility] 4'9" Body weight 101.00 [lb_av] 101.00 [lb_av] MEDEN T ([facility], ) Body mass index (BMI) [Ratio] 21.9 kg/m2 21.9 k g/m2 [facility] [place] body weight 100 [lb_av] 100 [lb_av] MEDEN T ([facility], ) Body weight 45.814 kg 45.814 kg [facility] Body surface area Derived from formula 1.35 m2 1.35 m2 [facility] Heart rate 101 /min 101 /min [facility] ) Oxygen saturation in Arterial blood by Pulse oximetry 94 % 94 % [facility] Body mass index (BMI) [Ratio] 21.9 kg/m2 21.9 k g/m2 [facility] Body weight 45.814 kg 45.814 kg [facility] Systolic blood pressure 108 mm[Hg] 108 mm[Hg] M EDENT ([facility], ) Diastolic blood pressure 78 mm[Hg] 78 mm[Hg] [facility] Body height 57 [in_i] 57 [in_i] [facility] ([facility]) 4'9" Body weight 101.00 [lb_av] 101.00 [lb_av] MEDEN T ([facility]) [place] body weight 100 [lb_av] 100 [lb_av] MEDEN T ([facility]) Body surface area Derived from formula 1.35 m2 1.35 m2 [facility] ([facility]) Systolic blood pressure 112 mm[Hg] 112 mm[Hg] A THENA ([facility]) Diastolic blood pressure 69 mm[Hg] 69 mm[Hg] CARLEEN ([facility]) Body height 62 [in_i] 62 [in_i] CAR[facility] ([facility]) Body mass index (BMI) [Ratio] 19 kg/m2 19 kg/ m2 CAR[facility]EN ([facility]) Diastolic blood pressure 69 mm[Hg] 69 mm[Hg] CARLEEN ([facility]) Body weight 1664 [oz_av] 1664 [oz_av] CARLEEN ([facility]) Body height 62 [in_i] 62 [in_i] CARLEEN ([facility]) Body mass index (BMI) [Ratio] 19 kg/m2 19 kg/ m2 CAR[facility]EN ([facility]) Systolic blood pressure 112 mm[Hg] 112 mm[Hg] A THENA ([facility]) Body weight 1664 [oz_av] 1664 [oz_av] CARLEEN ([facility]) Body height 62 [in_i] 62 [in_i] CARLEEN ([facility]) Body weight 1664 [oz_av] 1664 [oz_av] CARLEEN ([facility]) Body mass index (BMI) [Ratio] 19 kg/m2 19 kg/ m2 CARLEEN ([facility]) Systolic blood pressure 112 mm[Hg] 112 mm[Hg] A THENA ([facility]) Diastolic blood pressure 69 mm[Hg] 69 mm[Hg] CARLEEN ([facility]) Diastolic blood pressure 69 mm[Hg] 69 mm[Hg] CARLEEN ([facility]) Body height 62 [in_i] 62 [in_i] CARLEEN ([facility]) Body mass index (BMI) [Ratio] 19 kg/m2 19 kg/ m2 CARLEEN ([facility]) Systolic blood pressure 112 mm[Hg] 112 mm[Hg] A THENA ([facility]) Body weight 1664 [oz_av] 1664 [oz_av] CARLEEN ([facility]) Diastolic blood pressure 69 mm[Hg] 69 mm[Hg] CARLEEN ([facility]) Body height 62 [in_i] 62 [in_i] CARLEEN ([facility]) Body mass index (BMI) [Ratio] 19 kg/m2 19 kg/ m2 CARLEEN ([facility]) Systolic blood pressure 112 mm[Hg] 112 mm[Hg] A THENA ([facility]) Body weight 1664 [oz_av] 1664 [oz_av] CARLEEN ([facility]) Body weight 1664 [oz_av] 1664 [oz_av] CARLEEN ([facility]) Body height 62 [in_i] 62 [in_i] CARLEEN ([facility]) Body mass index (BMI) [Ratio] 19 kg/m2 19 kg/ m2 CARLEEN ([facility]) Systolic blood pressure 112 mm[Hg] 112 mm[Hg] A THENA ([facility]) Diastolic blood pressure 69 mm[Hg] 69 mm[Hg] CARLEEN ([facility]) Diastolic blood pressure 69 mm[Hg] 69 mm[Hg] CARLEEN ([facility]) Body height 62 [in_i] 62 [in_i] CARLEEN ([facility]) Body mass index (BMI) [Ratio] 19 kg/m2 19 kg/ m2 CARLEEN ([facility]) Systolic blood pressure 112 mm[Hg] 112 mm[Hg] A THENA ([facility]) Body weight 1664 [oz_av] 1664 [oz_av] CARLEEN ([facility]) Diastolic blood pressure 69 mm[Hg] 69 mm[Hg] CARLEEN ([facility]) Body height 62 [in_i] 62 [in_i] CARLEEN ([facility]) Body mass index (BMI) [Ratio] 19 kg/m2 19 kg/ m2 [facility] ([facility]) Systolic blood pressure 112 mm[Hg] 112 mm[Hg] [facility] Body weight 1664 [oz_av] 1664 [oz_av] CARLEEN ([facility]) Diastolic blood pressure 69 mm[Hg] 69 mm[Hg] CARLEEN ([facility]) Body height 62 [in_i] 62 [in_i] CARLEEN ([facility]) Body mass index (BMI) [Ratio] 19 kg/m2 19 kg/ m2 CARLEEN ([facility]) Systolic blood pressure 112 mm[Hg] 112 mm[Hg] A [facility] ([facility]) Body weight 1664 [oz_av] 1664 [oz_av] CARLEEN ([facility]) Patient Treatment Plan of Care Planned Activity Planned Date Details Description Data Source (s) tizanidine 4 MG Oral Tablet [facility]EN ([facility]) [facility] Ondansetron 4 MG Disintegrating Oral Tablet CARLEEN ([facility]) Ibuprofen 600 MG Oral Tablet [facility]LE[facility] ([facility]) [facility] Doxycycline Monohydrate 100 MG Oral Capsule CARLEEN ([facility]) Cyclobenzaprine hydrochloride 10 MG Oral Tablet CARLEEN ([facility]) Cholecalciferol 53973 UNT Oral Capsule CARLEEN ([facility]) Cefuroxime 500 MG Oral Tablet [facility]EN ([facility]) Baclofen 10 MG Oral Tablet A [facility] ([facility]) atorvastatin 20 [facility] Amoxicillin 500 MG Oral Capsule CARLEEN ([facility]) Prednisone 10 MG Oral Tablet CARLEEN ([facility]) gabapentin 300 MG Oral Capsule CARLEEN ([facility]) gabapentin 100 MG Oral Capsule CARLEEN ([facility]) Cefuroxime 500 MG Oral Tablet CARLEEN ([facility]) Amoxicillin 500 MG Oral Capsule CARLEEN ([facility]) Prednisone 10 MG Oral Tablet CARLEEN ([facility]) gabapentin 300 MG Oral Capsule CARLEEN ([facility]) gabapentin 100 MG Oral Capsule CARLEEN ([facility]) Cefuroxime 500 MG Oral Tablet CARLEEN ([facility]) Amoxicillin 500 MG Oral Capsule CARLEEN ([facility]) Prednisone 10 MG Oral Tablet [facility] ([facility]) Ibuprofen 600 MG Oral Tablet [facility] ([facility]) gabapentin 300 MG Oral Capsule CARLEEN ([facility]) gabapentin 100 MG Oral Capsule CARLE[facility] ([facility]) Cyclobenzaprine hydrochloride 10 MG Oral Tablet CARLEEN ([facility]) Cefuroxime 500 MG Oral Tablet [facility] ([facility]) Prednisone 10 MG Oral Tablet [facility] ([facility]) gabapentin 300 MG Oral Capsule CARLEEN ([facility]) gabapentin 100 MG Oral Capsule CARLEEN ([facility]) Cefuroxime 500 MG Oral Tablet CAR[facility]EN ([facility]) Amoxicillin 500 MG Oral Capsule CARLEEN ([facility]) Prednisone 10 MG Oral Tablet [facility] ([facility]) Amoxicillin 500 MG Oral Capsule CARLEEN ([facility]) Prednisone 10 MG Oral Tablet [facility] ([facility]) Ibuprofen 600 MG Oral Tablet [facility] ([facility]) gabapentin 300 MG Oral Capsule CARLEEN ([facility]) gabapentin 100 MG Oral Capsule CARLEEN ([facility]) Cyclobenzaprine hydrochloride 10 MG Oral Tablet [facility]EN ([facility]) Cefuroxime 500 MG Oral Tablet [facility] ([facility]) Prednisone 10 MG Oral Tablet [facility] ([facility]) Ibuprofen 600 MG Oral Tablet [facility] ([facility]) gabapentin 300 MG Oral Capsule CARLEEN ([facility]) gabapentin 100 MG Oral Capsule CARLEEN ([facility]) Cyclobenzaprine hydrochloride 10 MG Oral Tablet CARLEEN ([facility]) Cefuroxime 500 MG Oral Tablet [facility] ([facility]) Prednisone 10 MG Oral Tablet [facility] ([facility]) Ibuprofen 600 MG Oral Tablet [facility] ([facility]) gabapentin 300 MG Oral Capsule CARLEEN ([facility]) gabapentin 100 MG Oral Capsule CARLEEN ([facility]) Cyclobenzaprine hydrochloride 10 MG Oral Tablet [facility]LEEN ([facility]) Cefuroxime 500 MG Oral Tablet [facility] ([facility]) Prednisone 10 MG Oral Tablet [facility] ([facility]) Ibuprofen 600 MG Oral Tablet [facility] ([facility]) gabapentin 300 MG Oral Capsule CARLEEN ([facility]) gabapentin 100 MG Oral Capsule [facility] ([facility]) Cyclobenzaprine hydrochloride 10 MG Oral Tablet [facility] ([facility]) Cefuroxime 500 MG Oral Tablet [facility] ([facility]) Prednisone 10 MG Oral Tablet [facility] ([facility]) gabapentin 300 MG Oral Capsule CARELEN ([facility]) gabapentin 100 MG Oral Capsule CARLEEN ([facility]) Cefuroxime 500 MG Oral Tablet [facility] ([facility]) Prednisone 10 MG Oral Tablet [facility] ([facility]) gabapentin 300 MG Oral Capsule CARLEEN ([facility]) gabapentin 100 MG Oral Capsule CARLEEN ([facility]) Cefuroxime 500 MG Oral Tablet [facility] ([facility]) Prednisone 10 MG Oral Tablet CARLEEN ([facility]) gabapentin 300 MG Oral Capsule CARLEEN ([facility]) gabapentin 100 MG Oral Capsule CARLEEN ([facility]) Cefuroxime 500 MG Oral Tablet CARLEEN ([facility]) Prednisone 10 MG Oral Tablet CARLEEN ([facility]) gabapentin 300 MG Oral Capsule CARLEEN ([facility]) gabapentin 100 MG Oral Capsule CARLEEN ([facility]) Cefuroxime 500 MG Oral Tablet CARLEEN ([facility]) Prednisone 10 MG Oral Tablet CARLEEN ([facility]) Amoxicillin 500 MG Oral Capsule CARLEEN ([facility]) Amoxicillin 500 MG Oral Capsule CARLEEN ([facility]) Amoxicillin 500 MG Oral Capsule CARLEEN ([facility]) Prednisone 10 MG Oral Tablet CARLEEN ([facility]) Cefuroxime 500 MG Oral Tablet CARLEEN ([facility]) Amoxicillin 500 MG Oral Capsule CARLEEN ([facility])
[2021-04-02] MEDS ORDERED: LIDOCAINE 2% 100MG/5ML SDV (FOR ANES.) As Ordered ONE (07:08)
[2021-04-02] MEDS ORDERED: fentaNYL 100 MCG/2 ML INJECTION (J3010) As Ordered ONE (07:08)
[2021-04-02] MEDS ORDERED: propofoL 500 MG/50 ML VIAL As Ordered ONE (07:09)
[2021-04-02] MEDS ORDERED: PHENYLephrine 500MCG 5ML (100MCG/ML) SYRINGE As Ordered ONE (07:44)
[2021-04-02] MEDS ORDERED: SIMETHICONE 40MG/0.6ML DROPS 30ML As Ordered ONE (07:49)
--- NOTE | 2021-04-02 08:14 | ROOR ---
Patient Name: Radha Ndiaye Procedure Date: 04/02/2021 7:32 AM Date of : 1970 Age: 51 Room: [facility] Gender: Female Note Status: Finalized Procedure: Upper GI endoscopy Indications: Epigastric abdominal pain, Heartburn Providers: Corey Mak MD Referring MD: Varsha MARAVILLA MD Requesting Provider: Medicines: Monitored Anesthesia Care Complications: No immediate complications. Procedure: Pre-Anesthesia Assessment: - Prior to the procedure, a History and Physical was performed, and patient medications and allergies were reviewed. The patient is competent. The risks and benefits of the procedure and the sedation options and risks were discussed with the patient. All questions were answered and informed consent was obtained. Patient identification and proposed procedure were verified [Verifying Personnel] [Verification]. [Mental Status Exam]. [Airway Exam]. [Respiratory Exam]. [CV Exam]. The patient [Abx Prophylaxis Requirement] prophylactic antibiotics [High Risk History Reason] and [High Risk Procedure Reason]. [Anticoagulant Agents] [Days Prior to Procedure]. [ASA Grade]. After reviewing the risks and benefits, the patient was deemed in satisfactory condition to undergo the procedure. [Anesthesia Plan]. Immediately prior to administration of medications, the patient was re-assessed for adequacy to receive sedatives. The heart rate, respiratory rate, oxygen saturations, blood pressure, adequacy of pulmonary ventilation, and response to care were monitored throughout the procedure. The physical status of the patient was re-assessed after the procedure. The Endoscope was introduced through the mouth, and advanced to the second part of duodenum. The upper GI endoscopy was technically difficult and complex due to the patient's excessive discomfort during the procedure. Successful completion of the procedure was aided by increasing the dose of sedation medication. The patient tolerated the procedure fairly well. Findings: One tongue of salmon-colored mucosa was present at 20 cm. No other visible abnormalities were present. The maximum longitudinal extent of these esophageal mucosal changes was 2 cm in length. This was biopsied with a cold forceps for histology. Estimated blood loss was minimal. The Z-line was regular and was found 36 cm from the incisors. Striped mildly erythematous mucosa without bleeding was found in the gastric antrum. This was biopsied with a cold forceps for histology. Estimated blood loss was minimal. The duodenal bulb and first portion of the duodenum were normal. Impression: - Oxbow-colored mucosa suspicious for short-segment Louis's esophagus. Biopsied. - Z-line regular, 36 cm from the incisors. - Erythematous mucosa in the antrum. Biopsied. - Normal duodenal bulb and first portion of the duodenum. Recommendation: - Discharge patient to home (ambulatory). - Use Protonix (pantoprazole) 40 mg PO daily for 6 weeks. Procedure Code(s): --- Professional --- 27103, Esophagogastroduodenoscopy, flexible, transoral; with biopsy, single or multiple Diagnosis Code(s): --- Professional --- K22.8, Other specified diseases of esophagus K31.89, Other diseases of stomach and duodenum R10.13, Epigastric pain R12, Heartburn CPT copyright 2019 [employer]. All rights reserved. The codes documented in this report are preliminary and upon vice president quality review may be revised to meet current compliance requirements. Corey Mak MD Corey Mak MD 04/02/2021 8:14:04 AM Electronically signed by Corey Mak MD Number of Addenda: 0 Note Initiated On: 04/02/2021 7:32 AM Estimated Blood Loss: Estimated blood loss was minimal.
--- NOTE | 2021-04-02 08:21 | ROOR ---
Patient Name: Radha Ndiaye Procedure Date: 04/02/2021 7:32 AM Date of : 1970 Age: 51 Room: [facility] Gender: Female Note Status: Finalized Procedure: Colonoscopy Indications: Constipation Providers: Corey Mak MD Referring MD: Varsha MARAVILLA MD Requesting Provider: Medicines: Monitored Anesthesia Care Complications: No immediate complications. Procedure: Pre-Anesthesia Assessment: - Prior to the procedure, a History and Physical was performed, and patient medications and allergies were reviewed. The patient is competent. The risks and benefits of the procedure and the sedation options and risks were discussed with the patient. All questions were answered and informed consent was obtained. Patient identification and proposed procedure were verified by the physician, the nurse and the anesthesiologist in the endoscopy suite. Mental Status Examination: alert and oriented. Airway Examination: normal oropharyngeal airway and neck mobility. Respiratory Examination: clear to auscultation. CV Examination: normal. Prophylactic Antibiotics: The patient does not require prophylactic antibiotics. Prior Anticoagulants: The patient has taken no previous anticoagulant or antiplatelet agents. ASA Grade Assessment: III - A patient with severe systemic disease. After reviewing the risks and benefits, the patient was deemed in satisfactory condition to undergo the procedure. The anesthesia plan was to use monitored anesthesia care (MAC). Immediately prior to administration of medications, the patient was re-assessed for adequacy to receive sedatives. The heart rate, respiratory rate, oxygen saturations, blood pressure, adequacy of pulmonary ventilation, and response to care were monitored throughout the procedure. The physical status of the patient was re-assessed after the procedure. The Colonoscope was introduced through the anus and advanced to the ileocecal valve. The colonoscopy was technically difficult and complex due to inadequate bowel prep. Successful completion of the procedure was aided by applying abdominal pressure and lavage. The patient tolerated the procedure well. The quality of the bowel preparation was poor. Findings: The perianal and digital rectal examinations were normal. A few small-mouthed diverticula were found in the sigmoid colon. There is no endoscopic evidence of bleeding, inflammation, mass, stenosis or stricture in the entire colon. not able to clear most of the colon of the stool with large amounts of thick stool puddles, unable to clear for flat or small polyps. Internal hemorrhoids were found during retroflexion. The hemorrhoids were small. Impression: - Preparation of the colon was poor. - Diverticulosis in the sigmoid colon. - Internal hemorrhoids. - No specimens collected. Recommendation: - Repeat colonoscopy in 1 year because the bowel preparation was suboptimal. - High fiber diet indefinitely. - Colace capsule(s) orally 100 mg daily indefinitely. Procedure Code(s): --- Professional --- 67071, Colonoscopy, flexible; diagnostic, including collection of specimen(s) by brushing or washing, when performed (separate procedure) Diagnosis Code(s): --- Professional --- K64.8, Other hemorrhoids K59.00, Constipation, unspecified K57.30, Diverticulosis of large intestine without perforation or abscess without bleeding CPT copyright 2019 [employer]. All rights reserved. The codes documented in this report are preliminary and upon dispatcher tow truck review may be revised to meet current compliance requirements. Corey Mak MD Corey Mak MD 04/02/2021 8:20:34 AM Electronically signed by Corey Mak MD Number of Addenda: 0 Note Initiated On: 04/02/2021 7:32 AM Estimated Blood Loss: Estimated blood loss: none.
[2021-04-02 08:49] VITALS: BP 155/94
== END 2021-04-02 08:49 | disposition home or self-care (01) ==
LOC: M OPP 06:51
PROVIDERS: ATTEND Surgery
DX: K59.00 Constipation, unspecified (principal); K64.8 Other hemorrhoids; K57.30 Diverticulosis of large intestine without perforation or abscess without bleeding; K22.89 Other specified disease of esophagus; K31.89 Other diseases of stomach and duodenum; R10.13 Epigastric pain; I25.2 Old myocardial infarction; Z79.899 Other long term (current) drug therapy; F17.210 Nicotine dependence, cigarettes, uncomplicated
CPT/HCPCS: 43239; 45378; 88305; J2370; J3010

== ENCOUNTER → 2021-05-31 | Outpatient (CLI) | payer OTHER ==
[~2021-05-31] MED LIST changes: -NS 1,000 ML IV ONE
== END ==
LOC: M WHC 15:53
PROVIDERS: ATTEND Pediatrics
DX: R92.2 Inconclusive mammogram (principal)

== ENCOUNTER → 2021-06-12 | Outpatient (CLI) | payer OTHER | LOC: M WHC 10:20 | PROVIDERS: ATTEND Pediatrics | DX: Z12.31 Encounter for screening mammogram for malignant neoplasm of breast (principal) | CPT/HCPCS: 77065; G0279 ==

== ENCOUNTER → 2021-06-27 | Outpatient (CLI) | payer OTHER ==
[~2021-06-27] MED LIST changes: +**SFHN** LIDOCAINE 1% MDV 20ML VIAL ONE; +**SFHN** SODIUM BICARBONATE 8.4% 50MEQ 50ML VIAL ONE; +PANT40TA29 PO
[2021-06-27 11:27] VITALS: BP 118/72
== END ==
LOC: M WHCPRO 10:15
PROVIDERS: ATTEND Family Medicine Addiction Medicine
DX: D24.2 Benign neoplasm of left breast (principal)

== ENCOUNTER → 2021-11-01 | Outpatient (CLI) | payer OTHER, MEDICAID ==
[~2021-11-01] MED LIST changes: -**SFHN** LIDOCAINE 1% MDV 20ML VIAL ONE; -**SFHN** SODIUM BICARBONATE 8.4% 50MEQ 50ML VIAL ONE; +LEVO1TAB40 PO; -LEVO750T13 PO
== END ==
LOC: M PAIN 09:00
PROVIDERS: ATTEND Nurse Practitioner Family
DX: M79.10 Myalgia, unspecified site (principal); J44.9 Chronic obstructive pulmonary disease, unspecified; F17.210 Nicotine dependence, cigarettes, uncomplicated; Z86.59 Personal history of other mental and behavioral disorders; Z79.899 Other long term (current) drug therapy

== ENCOUNTER → 2021-11-27 | Outpatient (CLI) | payer OTHER, MEDICAID | LOC: M PAIN 09:45 | PROVIDERS: ATTEND Anesthesiology | DX: M54.6 Pain in thoracic spine (principal); G89.29 Other chronic pain; M79.18 Myalgia, other site; J44.9 Chronic obstructive pulmonary disease, unspecified; F17.210 Nicotine dependence, cigarettes, uncomplicated; Z86.59 Personal history of other mental and behavioral disorders; Z79.899 Other long term (current) drug therapy ==

== ENCOUNTER → 2021-11-29 | Outpatient (CLI) | payer MEDICAID, OTHER | LOC: M RAD 14:26 | PROVIDERS: ATTEND Anesthesiology | DX: M54.6 Pain in thoracic spine (principal) ==

== ENCOUNTER → 2021-12-23 | Outpatient (CLI) | payer OTHER, MEDICAID ==
[~2021-12-23] MED LIST changes: +BUPIVACAINE HCL 0.25% 10ML VIAL As Ordered ONE; +BUPIVACAINE HCL 0.25% 30ML VIAL As Ordered ONE; +NORCO, ANEXSIA 5/325MG TABLET (HYDROcodone/ACETAMINOPHEN) As Ordered ONE; +ONDANSETRON 4MG ORAL DISINTEGRATING TAB As Ordered ONE; +TRIAMCINOLONE ACETONIDE SUSP 40 MG/ML VIAL (J3301) As Ordered ONE; +diazePAM 5MG TABLET As Ordered ONE
== END ==
LOC: M PAIN 08:30
PROVIDERS: ATTEND Anesthesiology
DX: M79.18 Myalgia, other site (principal); G89.29 Other chronic pain; J44.9 Chronic obstructive pulmonary disease, unspecified; F17.210 Nicotine dependence, cigarettes, uncomplicated; Z86.59 Personal history of other mental and behavioral disorders; Z79.899 Other long term (current) drug therapy
CPT/HCPCS: 20552; J3301

== ENCOUNTER → 2022-01-23 | Outpatient (CLI) | payer OTHER, MEDICAID ==
[~2022-01-23] MED LIST changes: -BUPIVACAINE HCL 0.25% 10ML VIAL As Ordered ONE; -BUPIVACAINE HCL 0.25% 30ML VIAL As Ordered ONE; -NORCO, ANEXSIA 5/325MG TABLET (HYDROcodone/ACETAMINOPHEN) As Ordered ONE; -ONDANSETRON 4MG ORAL DISINTEGRATING TAB As Ordered ONE; -TRIAMCINOLONE ACETONIDE SUSP 40 MG/ML VIAL (J3301) As Ordered ONE; -diazePAM 5MG TABLET As Ordered ONE
== END ==
LOC: M PAIN 14:00
PROVIDERS: ATTEND Nurse Practitioner Family
DX: Z53.21 Procedure and treatment not carried out due to patient leaving prior to being seen by health care provider (principal)

== ENCOUNTER → 2022-02-14 | Outpatient (CLI) | payer OTHER, MEDICAID | LOC: M PAIN 14:15 | PROVIDERS: ATTEND Nurse Practitioner Family | DX: M79.10 Myalgia, unspecified site (principal); G89.29 Other chronic pain; J44.9 Chronic obstructive pulmonary disease, unspecified; F17.210 Nicotine dependence, cigarettes, uncomplicated; Z86.59 Personal history of other mental and behavioral disorders; Z79.899 Other long term (current) drug therapy ==

== ENCOUNTER → 2022-03-24 | Outpatient (CLI) | payer OTHER | LOC: M RAD 10:52 | PROVIDERS: ATTEND Internal Medicine Pulmonary Disease | DX: F17.218 Nicotine dependence, cigarettes, with other nicotine-induced disorders (principal) ==

== ENCOUNTER → 2022-04-02 | Outpatient (CLI) | payer OTHER | LOC: M RAD 11:12 | PROVIDERS: ATTEND Pediatrics | DX: R07.89 Other chest pain (principal); Z53.9 Procedure and treatment not carried out, unspecified reason ==

== ENCOUNTER → 2022-04-25 | Outpatient (CLI) | payer OTHER | LOC: M WHC 15:12 | PROVIDERS: ATTEND Pediatrics | DX: Z13.820 Encounter for screening for osteoporosis (principal) ==

== ENCOUNTER → 2022-05-13 | Outpatient (CLI) | payer OTHER | LOC: M LAB 11:21 | PROVIDERS: ATTEND Pediatrics | DX: R07.89 Other chest pain (principal) ==

== ENCOUNTER → 2022-06-02 | Outpatient (CLI) | payer OTHER, MEDICAID ==
[~2022-06-02] MED LIST changes: +BUPIVACAINE HCL 0.25% 10ML VIAL As Ordered ONE; +BUPIVACAINE HCL 0.25% 30ML VIAL As Ordered ONE; +NORCO, ANEXSIA 5/325MG TABLET (HYDROcodone/ACETAMINOPHEN) As Ordered ONE; +ONDANSETRON 4MG ORAL DISINTEGRATING TAB As Ordered ONE; +TRIAMCINOLONE ACETONIDE SUSP 40MG/ML 1ML VIAL As Ordered ONE; +diazePAM 5MG TABLET As Ordered ONE
== END ==
LOC: M PAIN 13:45
PROVIDERS: ATTEND Anesthesiology
DX: M79.18 Myalgia, other site (principal); G89.29 Other chronic pain; J44.9 Chronic obstructive pulmonary disease, unspecified; I25.2 Old myocardial infarction; F17.210 Nicotine dependence, cigarettes, uncomplicated; Z86.59 Personal history of other mental and behavioral disorders; Z79.899 Other long term (current) drug therapy
CPT/HCPCS: 20552; J3301; S0020

== ENCOUNTER → 2022-06-27 | Outpatient (REF) | payer OTHER, MEDICAID ==
[~2022-06-27] MED LIST changes: -BUPIVACAINE HCL 0.25% 10ML VIAL As Ordered ONE; -BUPIVACAINE HCL 0.25% 30ML VIAL As Ordered ONE; -NORCO, ANEXSIA 5/325MG TABLET (HYDROcodone/ACETAMINOPHEN) As Ordered ONE; -ONDANSETRON 4MG ORAL DISINTEGRATING TAB As Ordered ONE; -TRIAMCINOLONE ACETONIDE SUSP 40MG/ML 1ML VIAL As Ordered ONE; -diazePAM 5MG TABLET As Ordered ONE
[2022-06-27 17:17] LABS: BASO # 0.1 10^3/uL (0.0-0.2); BASO % 1.1 % (0.0-1.0); EOS # 0.2 10^3/uL (0.0-0.5); EOS % 2.4 % (0.0-3.0); HEMATOCRIT 42.8 % (36.0-47.0); HEMOGLOBIN 14.7 g/dl (12.0-15.5); LYMPH % 42.9 % (24.0-44.0); MEAN CORPUSCULAR HEMOGLOBIN 31.4 pg (27.0-33.0); MEAN CORPUSCULAR HGB CONC 34.3 g/dl (32.0-36.5); MEAN CORPUSCULAR VOLUME 91.5 fl (80.0-96.0); MONO # 0.4 10^3/uL (0.0-0.8); MONO % 6.2 % (2.0-8.0); NEUTROPHILS # 3.3 10^3/uL (1.5-8.5); NEUTROPHILS % 47.1 % (36.0-66.0); PLATELET COUNT, AUTOMATED 333 10^3/uL (150-450); RED BLOOD COUNT 4.68 10^6/uL (4.00-5.40); WHITE BLOOD COUNT 7.1 10^3/uL (4.0-10.0)
[2022-06-27 17:47] LABS: ALBUMIN 3.9 G/DL (3.2-5.2); ALKALINE PHOSPHATASE 69 U/L (46-116); ALT/SGPT 15 U/L (7.0-40); AST/SGOT 15 U/L (<34); BILIRUBIN,TOTAL 0.3 MG/DL (0.3-1.2); BLOOD UREA NITROGEN 17 MG/DL (9-23); CALCIUM LEVEL 9.3 MG/DL (8.5-10.1); CARBON DIOXIDE LEVEL 29 MMOL/L (20-31); CHLORIDE LEVEL 102 MMOL/L (98-107); CREATININE FOR GFR 0.88 MG/DL (0.55-1.30); GLOMERULAR FILTRATION RATE > 60.0 (>51); GLUCOSE, FASTING 83 MG/DL (60-100); POTASSIUM SERUM 4.3 MMOL/L (3.5-5.1); PTH INTACT 53.4 PG/ML (18.5-88.0); SODIUM LEVEL 138 MMOL/L (136-145); TOTAL PROTEIN 6.9 G/DL (5.7-8.2)
[2022-06-27 18:10] LABS: ERYTHROCYTE SEDIMENTATION RATE 13 mm/hr (0-30)
== END ==
LOC: M LAB REF 16:22
PROVIDERS: ATTEND Pediatrics
DX: M79.10 Myalgia, unspecified site (principal)

== ENCOUNTER → 2022-07-08 | Outpatient (CLI) | payer OTHER | LOC: M WHC 14:50 | PROVIDERS: ATTEND Nurse Practitioner Women's Health | DX: R92.2 Inconclusive mammogram (principal) ==

== ENCOUNTER → 2022-07-08 | Outpatient (CLI) | payer MEDICAID, OTHER | LOC: M WHC 14:48 | PROVIDERS: ATTEND Pediatrics | DX: Z12.31 Encounter for screening mammogram for malignant neoplasm of breast (principal) ==

== ENCOUNTER → 2022-09-26 | Outpatient (CLI) | payer OTHER, MEDICAID | LOC: M PAIN 14:15 | PROVIDERS: ATTEND Nurse Practitioner Family | DX: M79.10 Myalgia, unspecified site (principal); G89.29 Other chronic pain; J44.9 Chronic obstructive pulmonary disease, unspecified; E55.9 Vitamin D deficiency, unspecified; I25.2 Old myocardial infarction; F17.210 Nicotine dependence, cigarettes, uncomplicated; Z79.899 Other long term (current) drug therapy ==

== ENCOUNTER → 2022-10-06 | Outpatient (CLI) | payer OTHER ==
[2022-10-06 15:24] LABS: CREATININE FOR GFR 1.07 MG/DL (0.55-1.30); GLOMERULAR FILTRATION RATE 57.6 (>51)
== END ==
LOC: M LAB 13:59
PROVIDERS: ATTEND Otolaryngology
DX: K13.79 Other lesions of oral mucosa (principal); C43.0 Malignant melanoma of lip; Z72.0 Tobacco use

== ENCOUNTER → 2022-10-10 | Outpatient (CLI) | payer OTHER ==
[~2022-10-10] MED LIST changes: +ISOVUE-370 76% 100ML VIAL As Ordered ONE
== END ==
LOC: M RAD 14:08
PROVIDERS: ATTEND Otolaryngology
DX: C43.0 Malignant melanoma of lip (principal); K13.79 Other lesions of oral mucosa
CPT/HCPCS: 70491; Q9967

== ENCOUNTER → 2022-11-10 | Outpatient (REF) | payer MEDICAID, OTHER ==
[~2022-11-10] MED LIST changes: -ISOVUE-370 76% 100ML VIAL As Ordered ONE; +MAGN400T2 PO; +VITA200032 PO
== END ==
LOC: M LAB REF 17:32
PROVIDERS: ATTEND Otolaryngology
DX: Z53.9 Procedure and treatment not carried out, unspecified reason (principal)

== ENCOUNTER → 2022-11-20 | Outpatient (CLI) | payer OTHER, MEDICAID ==
[~2022-11-20] MED LIST changes: -MAGN400T2 PO; -VITA200032 PO
== END ==
LOC: M PAIN 14:00
PROVIDERS: ATTEND Anesthesiology
DX: Z53.29 Procedure and treatment not carried out because of patient's decision for other reasons (principal)

== ENCOUNTER → 2022-11-21 | Outpatient (CLI) | payer OTHER, MEDICAID ==
[~2022-11-21] MED LIST changes: +NORCO, ANEXSIA 5/325MG TABLET (HYDROcodone/ACETAMINOPHEN) As Ordered ONE; +ONDANSETRON 4MG ORAL DISINTEGRATING TAB As Ordered ONE; +TRIAMCINOLONE ACETONIDE SUSP 40MG/ML 1ML VIAL As Ordered ONE; +diazePAM 5MG TABLET As Ordered ONE
== END ==
LOC: M PAIN 11:00
PROVIDERS: ATTEND Anesthesiology
DX: M79.18 Myalgia, other site (principal); G89.29 Other chronic pain; M54.50 Low back pain, unspecified; E78.5 Hyperlipidemia, unspecified; J45.909 Unspecified asthma, uncomplicated; J44.9 Chronic obstructive pulmonary disease, unspecified; F20.0 Paranoid schizophrenia; E55.9 Vitamin D deficiency, unspecified; I25.2 Old myocardial infarction; M25.551 Pain in right hip; M25.552 Pain in left hip; F17.210 Nicotine dependence, cigarettes, uncomplicated; Z79.899 Other long term (current) drug therapy
CPT/HCPCS: 20552; J0665; J3301

== ENCOUNTER 2022-12-17 08:42 | Day surgery (SDC) | payer OTHER ==
[~2022-12-17] VITALS: Ht 144.8 cm; Wt 44.2 kg
[~2022-12-17 08:42] MED LIST changes: +MAGN400T2 PO; -NORCO, ANEXSIA 5/325MG TABLET (HYDROcodone/ACETAMINOPHEN) As Ordered ONE; +NS 1,000 ML IV ONE; -ONDANSETRON 4MG ORAL DISINTEGRATING TAB As Ordered ONE; -TRIAMCINOLONE ACETONIDE SUSP 40MG/ML 1ML VIAL As Ordered ONE; +VITA200032 PO; -diazePAM 5MG TABLET As Ordered ONE; +fentaNYL 100 MCG/2 ML INJECTION As Ordered ONE; +propofoL 200 MG/20 ML VIAL As Ordered ONE
[2022-12-17] MEDS ORDERED: propofoL 200 MG/20 ML VIAL As Ordered ONE ×2 (09:27→09:57)
[2022-12-17] MEDS ORDERED: ELEVIEW SUBMUCOSAL INJ 10ML AMP As Ordered ONE (09:53)
[2022-12-17 10:15] VITALS: TEMP 96.9
[2022-12-17 10:47] VITALS: BP 142/91; O2SAT 95
== END 2022-12-17 11:28 | disposition home or self-care (01) ==
LOC: M OPP 08:42
PROVIDERS: ATTEND Surgery
DX: Z12.11 Encounter for screening for malignant neoplasm of colon (principal); D12.3 Benign neoplasm of transverse colon; K31.89 Other diseases of stomach and duodenum; K29.70 Gastritis, unspecified, without bleeding; K22.89 Other specified disease of esophagus; F17.200 Nicotine dependence, unspecified, uncomplicated; Z79.52 Long term (current) use of systemic steroids; Z79.899 Other long term (current) drug therapy
CPT/HCPCS: 43239; 45381; 45385; 88305; J3010

== ENCOUNTER → 2023-04-02 | Outpatient (CLI) | payer OTHER ==
[~2023-04-02] MED LIST changes: -NS 1,000 ML IV ONE; -fentaNYL 100 MCG/2 ML INJECTION As Ordered ONE; -propofoL 200 MG/20 ML VIAL As Ordered ONE
== END ==
LOC: M RAD 10:30
PROVIDERS: ATTEND Internal Medicine Pulmonary Disease
DX: Z12.2 Encounter for screening for malignant neoplasm of respiratory organs (principal); F17.218 Nicotine dependence, cigarettes, with other nicotine-induced disorders

== ENCOUNTER → 2023-11-02 | Outpatient (CLI) | payer OTHER | LOC: M WHC 10:09 | PROVIDERS: ATTEND Pediatrics | DX: Z12.31 Encounter for screening mammogram for malignant neoplasm of breast (principal) ==

== ENCOUNTER 2023-11-28 10:59 | Emergency (ER) | payer OTHER ==
[~2023-11-28] VITALS: Ht 144.8 cm; Wt 47.4 kg
[2023-11-28] MEDS: NICOTINE 21MG/24HR 1 EA TRANSDERMAL TD ONE (13:56)
[2023-11-28] MEDS: ACETAMINOPHEN *IV* 1,000 MG in IV 1 EA IV ONE (13:57)
[2023-11-28] MEDS: NS 1,000 ML IV ONE (13:58)
[2023-11-28 13:59] LABS: BASO # 0.1 10^3/uL (0.0-0.2); BASO % 0.7 % (0.0-1.0); EOS # 0.1 10^3/uL (0.0-0.5); HEMATOCRIT 39.9 % (36.0-47.0); HEMOGLOBIN 14.2 g/dl (12.0-15.5); LYMPH # 1.6 10^3/uL (1.5-5.0); MEAN CORPUSCULAR HEMOGLOBIN 32.5 pg (27.0-33.0); MEAN CORPUSCULAR HGB CONC 35.6 g/dl (32.0-36.5); MEAN CORPUSCULAR VOLUME 91.3 fl (80.0-96.0); MONO # 0.7 10^3/uL (0.0-0.8); MONO % 5.9 % (2.0-8.0); NEUTROPHILS # 8.8 10^3/uL (1.5-8.5); PLATELET COUNT, AUTOMATED 316 10^3/uL (150-450); RED BLOOD COUNT 4.37 10^6/uL (4.00-5.40); WHITE BLOOD COUNT 11.3 10^3/uL (4.0-10.0)
[2023-11-28] MEDS ORDERED: ISOVUE-370 76% 100ML VIAL As Ordered ONE (14:01)
[2023-11-28 14:03] LABS: ERYTHROCYTE SEDIMENTATION RATE 11 mm/hr (0-30)
[2023-11-28 14:18] LABS: LIPASE 35 U/L (12-53)
[2023-11-28 14:20] LABS: ALKALINE PHOSPHATASE 81 U/L (46-116); ALT/SGPT < 9 U/L (7.0-40); AST/SGOT 9 U/L (<34); BILIRUBIN,DIRECT 0.1 MG/DL (<0.4); BILIRUBIN,TOTAL 0.4 MG/DL (0.3-1.2); TOTAL PROTEIN 6.8 G/DL (5.7-8.2)
[2023-11-28] MEDS ORDERED: AMOX875T2 PO (16:41)
[2023-11-28] MEDS: AUGMENTIN 875 MG TAB PO ONE (16:54)
[2023-11-28] MEDS: KETOROLAC 30 MG/ML 1ML VIAL IV ONE (16:55)
[2023-11-28 17:06] VITALS: BP 176/82; TEMP 97.8; O2SAT 100
== END 2023-11-28 17:02 | disposition home or self-care (01) ==
LOC: M ED 10:59
DX: K11.20 Sialoadenitis, unspecified (principal); I25.2 Old myocardial infarction; E78.5 Hyperlipidemia, unspecified; J44.9 Chronic obstructive pulmonary disease, unspecified; R51.9 Headache, unspecified; F17.200 Nicotine dependence, unspecified, uncomplicated; Z79.52 Long term (current) use of systemic steroids; Z79.2 Long term (current) use of antibiotics; Z79.899 Other long term (current) drug therapy
CPT/HCPCS: 70487; 80047; 80076; 83605; 83690; 85025; 85652; 86140; 96361; 96374; 99284; J0131; J1885; Q9967

== ENCOUNTER → 2024-05-12 | Outpatient (CLI) | payer OTHER ==
[~2024-05-12] MED LIST changes: +AMOX875T2 PO; +GABA-1172 PO; -GABA-282 PO
== END ==
LOC: M RAD 16:20
PROVIDERS: ATTEND Internal Medicine Pulmonary Disease
DX: Z12.2 Encounter for screening for malignant neoplasm of respiratory organs (principal); F17.218 Nicotine dependence, cigarettes, with other nicotine-induced disorders

== ENCOUNTER → 2024-06-01 | Outpatient (CLI) | payer OTHER | LOC: M WHC 12:23 | PROVIDERS: ATTEND Pediatrics | DX: M85.88 Other specified disorders of bone density and structure, other site (principal) ==

== ENCOUNTER → 2025-01-04 | Outpatient (REF) | payer OTHER, MEDICAID ==
[~2025-01-04] MED LIST changes: -IBUP-1022 PO; +IBUP600T42 PO
== END ==
LOC: M SFHCWAGY 13:22
PROVIDERS: ATTEND Obstetrics & Gynecology
DX: R87.612 Low grade squamous intraepithelial lesion on cytologic smear of cervix (LGSIL) (principal)